=== PATIENT | female | born 1995 | race Caucasian/White ===

== ENCOUNTER 2023-05-05 05:08 | Emergency (ER) | payer OTHER, SELFPAY ==
[2023-05-05 05:21] VITALS: BP 152/108; PULSE 70; RESP 20; TEMP 37.1; O2SAT 95; BMI 41.2
[2023-05-05 05:26] VITALS: BP 152/108; PULSE 86; RESP 23
--- NOTE | 2023-05-05 05:48 | ECG_ITS ---
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
--- NOTE | 2023-05-05 05:48 | XR_ITS ---
The [address] [address] Patient Name: ABEL ELIZONDO MRN: [id number] date: 1995 Sex: F Assigned Patient Location: ED.MAIN Current Patient Location: ER Accession/Order Number: [id number] Exam Date: 05/05/2023 05:55 Report Date: 05/05/2023 06:17 At the request of: BRITTNEY MARKER Procedure: XR chest 1V EXAM: XR chest 1V 05/05/2023 5:55 AM EDT OH001 CLINICAL STATEMENT: CP chest pain COMPARISON: No prior studies are available at the time of dictation. TECHNIQUE: Single AP radiograph of the chest is submitted. FINDINGS: There is no acute airspace disease. The cardiac silhouette is normal. The costophrenic recesses are sharp. No pneumothorax. The bony elements are unremarkable. IMPRESSION: No acute cardiopulmonary process. Electronically authenticated by: CORIE SAID Date: 05/05/2023 06:17
--- NOTE | 2023-05-05 06:01 | ED_ITS ---
Documented by User: Gill Vines MD 05/05/23 06:05 HPI - General Adult General Chief complaint: Back Pain/Injury Stated complaint: FLANK PAIN Time Seen by Provider: 05/05/23 05:10 Source: patient Mode of arrival: walk-in Limitations: no limitations History of Present Illness HPI narrative: This otherwise healthy 27-year-old female, nonsmoker presents for evaluation of muscle spasms in the left side of her chest underneath her breasts and wrapping around to the back. This has been present for the past 1-2 days but getting worse. The patient has pain with movement, coughing and deep breathing. She states she has had an upper respiratory section with nasal congestion, dry hacking cough for the past several weeks. She states she cannot get any sputum up. She has been having episodes of spasmodic coughing. Last night she was unable get comfortable because every time she moved or twisted she had pain in the left chest area. She denies any dizziness or syncope. She denies feeling specifically short of breath. She denies the possibility of . She has not had a fever. She denies any nausea vomiting or diarrhea. She has used tzha-fuy-gqxbxhi cough and cold medications and ALLERGY medications without significant improvement. She admits that she has been a fair bit of time outside because her daughter is in softball and she helps her practice. Related Data Home Medications Medication Instructions Recorded Confirmed escitalopram oxalate 20 mg tablet 20 mg PO DAILY 05/05/23 05/05/23 (Lexapro) Allergies Allergy/AdvReac Type Severity Reaction Status Date / Time No Known Drug Allergies Allergy Verified 05/05/23 05:27 Review of Systems ROS Status of ROS 10 or more systems reviewed and unremarkable except as noted in history and below Exam Narrative Exam Narrative: Constitutional: Nontoxic overweight female resting comfortable in the stretcher, she winces in pain with movement, no respiratory distress Vital signs reviewed, patient is afebrile with normal pulse, blood pressure is elevated at 152/108, she is not hypoxic with pulse ox 95 percent on room air HEENT, normocephalic atraumatic, mucous members are moist and pink, no pharyngeal erythema noted, audible nasal congestion appreciated Neck: Supple, no meningeal signs Chest: Tenderness to palpation underneath the left breast and left upper lateral chest wall, no crepitus appreciated. Lungs are clear with good air entry, there is no wheezing rhonchi or rales appreciated no accessory muscle use, patient speaking in complete sentences CVS: Rate and rhythm S1-S2, no murmurs rubs or gallops, pulses are brisk and equal bilaterally Abdomen: Soft, nondistended, no rebound guarding or rigidity, Extremities: FROM ,non-tender Neuro: No focal deficits Psych: normal exam Constitutional Vital Signs - 24 hr 05/05/23 05:21 Temperature 98.8 F Pulse Rate [Monitor] 70 Respiratory Rate 20 Blood Pressure [Left Arm] 152/108 H Pulse Oximetry 95 Oxygen Delivery Method Room Air Course Vital Signs Vital signs: Vital Signs Temperature 98.8 F 05/05/23 05:21 Pulse Rate 70 05/05/23 05:21 Respiratory Rate 20 05/05/23 05:21 Blood Pressure 152/108 H 05/05/23 05:21 Pulse Oximetry 95 05/05/23 05:21 Oxygen Delivery Method Room Air 05/05/23 05:21 Temperature 98.8 F 05/05/23 05:21 Pulse Rate 70 05/05/23 05:21 Respiratory Rate 20 05/05/23 05:21 Blood Pressure 152/108 H 05/05/23 05:21 Pulse Oximetry 95 05/05/23 05:21 Oxygen Delivery Method Room Air 05/05/23 05:21 Medical Decision Making Lab Data Labs: Lab Results 05/05/23 Range/Units 05:40 WBC 8.6 (4.0-11.0) 10^3/uL RBC 5.45 H (4.20-5.40) 10^6/uL Hgb 14.1 (12.0-16.0) g/dL Hct 42.0 (36.0-48.0) % MCV 77.1 L (81.0-99.0) fL MCH 25.9 L (26.7-34.0) pg MCHC 33.6 (29.9-35.2) g/dL RDW 14.0 (11.0-15.0) % Plt Count 419 (150-450) 10^3/uL MPV 9.2 L (9.5-13.5) fL Neut % (Auto) 61.4 (43.0-75.0) % Lymph % (Auto) 30.2 (20.5-60.0) % [place] % (Auto) 5.4 (1.7-12.0) % Eos % (Auto) 2.3 (0.9-7.0) % Baso % (Auto) 0.6 (0.2-2.0) % Neut # (Auto) 5.3 (1.4-6.5) 10^3/uL Lymph # (Auto) 2.6 (1.2-3.8) 10^3/uL [place] # (Auto) 0.5 (0.3-0.8) 10^3/uL Eos # (Auto) 0.2 (0.0-0.7) 10^3/uL Baso # (Auto) 0.1 (0.0-0.1) 10^3/uL Abs Immat Gran (auto) 0.01 (0.00-0.03) 10^3/uL Imm/Tot Granulo (auto) 0.1 (0.0-0.5) % D-Dimer 0.22 (<=0.59) mg/L FEU Sodium 140 (136-145) mmol/L Potassium 3.6 (3.5-5.1) mmol/L Chloride 103 (98-107) mmol/L Carbon Dioxide 27.9 (21.0-32.0) mmol/L Anion Gap 12.7 BUN 8.0 (7.0-18.0) mg/dL Creatinine 0.68 (0.55-1.02) mg/dL Est GFR ( Amer) >60 (>=60) Est GFR (Non-Af Amer) >60 (>=60) BUN/Creatinine Ratio 11.8 Glucose 95 (74-106) mg/dL Lactate 1.4 (0.4-2.0) mmol/L Calcium 8.6 (8.5-10.1) mg/dL Total Bilirubin 0.3 (0.2-1.0) mg/dL AST 14 L (15-37) U/L ALT 25 (14-59) U/L Alkaline Phosphatase 75 (46-116) U/L Troponin I High Sens <4.0 L (4.0-51.3) pg/mL Total Protein 8.2 (6.4-8.2) g/dL Albumin 3.7 (3.4-5.0) g/dL Globulin 4.5 g/dL Albumin/Globulin Ratio 0.8 Discharge Plan Discharge Chief Complaint: Back Pain/Injury Clinical Impression: Pleurisy Patient Disposition: Home, Self-Care Time of Disposition Decision: 07:16 Prescriptions / Home Meds: No Action escitalopram oxalate [Lexapro] 20 mg tablet 20 mg PO DAILY Instructions: Pleurisy (ED) Stand Alone Forms: Portal Instructions Referrals: Physician,Non-Staff, MD [Primary Care Provider] - 1 week Sign Out Sign Out Data: Patient Sign Out occurred on 05/05/23 at 07:09. Patient's care was discussed, and care was transferred from Gill Vines MD to Paramjit Caban. Sign Out Comment: pending rib series xray and re-eval Last updated by Gill Vines MD at 05/05/23 07:06 Documented by User: Paramjit Caban 05/05/23 07:17 HPI - General Adult General Chief complaint: Back Pain/Injury Stated complaint: FLANK PAIN Time Seen by Provider: 05/05/23 05:10 Related Data Home Medications Medication Instructions Recorded Confirmed escitalopram oxalate 20 mg tablet 20 mg PO DAILY 05/05/23 05/05/23 (Lexapro) Allergies Allergy/AdvReac Type Severity Reaction Status Date / Time No Known Drug Allergies Allergy Verified 05/05/23 05:27 Exam Constitutional Vital Signs - 24 hr 05/05/23 05:21 Temperature 98.8 F Pulse Rate [Monitor] 70 Respiratory Rate 20 Blood Pressure [Left Arm] 152/108 H Pulse Oximetry 95 Oxygen Delivery Method Room Air Course Vital Signs Vital signs: Vital Signs Temperature 98.8 F 05/05/23 05:21 Pulse Rate 70 05/05/23 05:21 Respiratory Rate 20 05/05/23 05:21 Blood Pressure 152/108 H 05/05/23 05:21 Pulse Oximetry 95 05/05/23 05:21 Oxygen Delivery Method Room Air 05/05/23 05:21 Temperature 98.8 F 05/05/23 05:21 Pulse Rate 70 05/05/23 05:21 Respiratory Rate 20 05/05/23 05:21 Blood Pressure 152/108 H 05/05/23 05:21 Pulse Oximetry 95 05/05/23 05:21 Oxygen Delivery Method Room Air 05/05/23 05:21 Medical Decision Making MDM Narrative Medical decision making narrative: Patient was initially evaluated by Dr Vines - her HPI and exam findings are noted above. Labs were negative including d-dimer. She signed the patient out to me with CXR pending. CXR reviewed and was without acute cardiopulmonary pathology. Patient informed of results and discharged home. Dr Vines had already written a prescription for pain meds. Patient instructed to see her PCP for follow up or return to the ED if she worsens. Lab Data Lab results reviewed: Yes I reviewed the patient's lab results Labs: Lab Results 05/05/23 Range/Units 05:40 WBC 8.6 (4.0-11.0) 10^3/uL RBC 5.45 H (4.20-5.40) 10^6/uL Hgb 14.1 (12.0-16.0) g/dL Hct 42.0 (36.0-48.0) % MCV 77.1 L (81.0-99.0) fL MCH 25.9 L (26.7-34.0) pg MCHC 33.6 (29.9-35.2) g/dL RDW 14.0 (11.0-15.0) % Plt Count 419 (150-450) 10^3/uL MPV 9.2 L (9.5-13.5) fL Neut % (Auto) 61.4 (43.0-75.0) % Lymph % (Auto) 30.2 (20.5-60.0) % [place] % (Auto) 5.4 (1.7-12.0) % Eos % (Auto) 2.3 (0.9-7.0) % Baso % (Auto) 0.6 (0.2-2.0) % Neut # (Auto) 5.3 (1.4-6.5) 10^3/uL Lymph # (Auto) 2.6 (1.2-3.8) 10^3/uL [place] # (Auto) 0.5 (0.3-0.8) 10^3/uL Eos # (Auto) 0.2 (0.0-0.7) 10^3/uL Baso # (Auto) 0.1 (0.0-0.1) 10^3/uL Abs Immat Gran (auto) 0.01 (0.00-0.03) 10^3/uL Imm/Tot Granulo (auto) 0.1 (0.0-0.5) % D-Dimer 0.22 (<=0.59) mg/L FEU Sodium 140 (136-145) mmol/L Potassium 3.6 (3.5-5.1) mmol/L Chloride 103 (98-107) mmol/L Carbon Dioxide 27.9 (21.0-32.0) mmol/L Anion Gap 12.7 BUN 8.0 (7.0-18.0) mg/dL Creatinine 0.68 (0.55-1.02) mg/dL Est GFR ( Amer) >60 (>=60) Est GFR (Non-Af Amer) >60 (>=60) BUN/Creatinine Ratio 11.8 Glucose 95 (74-106) mg/dL Lactate 1.4 (0.4-2.0) mmol/L Calcium 8.6 (8.5-10.1) mg/dL Total Bilirubin 0.3 (0.2-1.0) mg/dL AST 14 L (15-37) U/L ALT 25 (14-59) U/L Alkaline Phosphatase 75 (46-116) U/L Troponin I High Sens <4.0 L (4.0-51.3) pg/mL Total Protein 8.2 (6.4-8.2) g/dL Albumin 3.7 (3.4-5.0) g/dL Globulin 4.5 g/dL Albumin/Globulin Ratio 0.8 Imaging Data Chest x-ray: Attestation: I have reviewed the pertinent imaging results. Radiologist's impression: Patient Name: ABEL ELIZONDO MRN: [id number] date: 1995 Sex: F Assigned Patient Location: ED.MAIN Current Patient Location: ER Accession/Order Number: [id number] Exam Date: 05/05/2023 05:55 Report Date: 05/05/2023 06:17 At the request of: GILL MARKER Procedure: XR chest 1V EXAM: XR chest 1V 05/05/2023 5:55 AM EDT OH001 CLINICAL STATEMENT: CP chest pain COMPARISON: No prior studies are available at the time of dictation. TECHNIQUE: Single AP radiograph of the chest is submitted. FINDINGS: There is no acute airspace disease. The cardiac silhouette is normal. The costophrenic recesses are sharp. No pneumothorax. The bony elements are unremarkable. IMPRESSION: No acute cardiopulmonary process. Electronically authenticated by: CORIE MONACO Date: 05/05/2023 06:17 Discharge Plan Discharge Chief Complaint: Back Pain/Injury Clinical Impression: Pleurisy Patient Disposition: Home, Self-Care Time of Disposition Decision: 07:16 Prescriptions / Home Meds: No Action escitalopram oxalate [Lexapro] 20 mg tablet 20 mg PO DAILY Instructions: Pleurisy (ED) Stand Alone Forms: Portal Instructions Referrals: Physician,Non-Staff, MD [Primary Care Provider] - 1 week Sign Out Sign Out Data: Patient Sign Out occurred on 05/05/23 at 07:09. Patient's care was discussed, and care was transferred from Gill Vines MD to Paramjit Caban. Sign Out Comment: pending rib series xray and re-eval Last updated by Gill Vines MD at 05/05/23 07:06
[2023-05-05 06:12] LABS: Basophils Absolute Auto 0.1 10^3/uL (0.0-0.1); Basophils Percent Auto 0.6 % (0.2-2.0); Eosinophils Absolute Auto 0.2 10^3/uL (0.0-0.7); Eosinophils Percent Auto 2.3 % (0.9-7.0); Hemoglobin 14.1 g/dL (12.0-16.0); Immature Granulocytes Abs Auto 0.01 10^3/uL (0.00-0.03); Immature Granulocytes Pct Auto 0.1 % (0.0-0.5); Lymphocytes Absolute Auto 2.6 10^3/uL (1.2-3.8); Lymphocytes Percent Auto 30.2 % (20.5-60.0); Mean Corpuscular HGB Conc 33.6 g/dL (29.9-35.2); Mean Corpuscular Hemoglobin 25.9 pg (26.7-34.0); Mean Corpuscular Volume 77.1 fL (81.0-99.0); Mean Platelet Volume 9.2 fL (9.5-13.5); Monocytes Absolute Auto 0.5 10^3/uL (0.3-0.8); Monocytes Percent Auto 5.4 % (1.7-12.0); Neutrophils Absolute Auto 5.3 10^3/uL (1.4-6.5); Neutrophils Percent Auto 61.4 % (43.0-75.0); Platelet Count 419 10^3/uL (150-450); Red Blood Count 5.45 10^6/uL (4.20-5.40); White Blood Count 8.6 10^3/uL (4.0-11.0)
[2023-05-05] MEDS: 0.9 % SODIUM CHLORIDE 1,000 ML 999 ML IV (06:22)
[2023-05-05] MEDS: KETOROLAC TROMETHAMINE 30 MG/ML VIAL IVP (06:23)
[2023-05-05] MEDS: ONDANSETRON 4 MG RAPDIS TABLET SL (06:39)
[2023-05-05] MEDS: HYDROCODONE/ACETAMINOPHEN 5-325 MG TABLET 1 TAB PO (06:39)
[2023-05-05 06:44] LABS: D Dimer 0.22 mg/L FEU (<=0.59)
[2023-05-05 06:46] LABS: Lactate/Lactic Acid 1.4 mmol/L (0.4-2.0)
[2023-05-05 06:52] LABS: Alanine Aminotransferase 25 U/L (14-59); Albumin Globulin Ratio 0.8; Albumin Level 3.7 g/dL (3.4-5.0); Alkaline Phosphatase 75 U/L (46-116); Anion Gap 12.7; Aspartate Amino Transferase 14 U/L (15-37); BUN Creatinine Ratio 11.8; Bilirubin Total 0.3 mg/dL (0.2-1.0); Calcium 8.6 mg/dL (8.5-10.1); Carbon Dioxide 27.9 mmol/L (21.0-32.0); Chloride 103 mmol/L (98-107); Estimated GFR (African America >60 (>=60); Estimated GFR (Non-African Ame >60 (>=60); Globulin 4.5 g/dL; Glucose 95 mg/dL (74-106); Potassium 3.6 mmol/L (3.5-5.1); Sodium 140 mmol/L (136-145); Total Protein 8.2 g/dL (6.4-8.2); Troponin I High Sensitivity <4.0 pg/mL (4.0-51.3)
[2023-05-05 07:32] VITALS: BP 138/73; PULSE 72; RESP 16; TEMP 36.6; O2SAT 96
== END 2023-05-05 07:54 | disposition home or self-care (01) ==
PROVIDERS: Emergency Medicine; Emergency Provider Emergency Medicine
DX: R09.1 Pleurisy (principal); Z79.899 Other long term (current) drug therapy
CPT/HCPCS: 36415; 71045; 80053; 83605; 84484; 85025; 85378; 93005; 96374; 99285

== ENCOUNTER 2024-12-05 23:26 | Emergency (ER) | payer OTHER, SELFPAY ==
[2024-12-05 23:32] VITALS: BP 138/98; PULSE 128; TEMP 38.3; O2SAT 96; BMI 41.2
--- NOTE | 2024-12-05 23:44 | ED_ITS ---
HPI - URI/Sore Throat General Chief Complaint: Upper Respiratory Infection Stated Complaint: FEVER Time Seen by Provider: 12/05/24 23:28 Source: patient Limitations: no limitations History of Present Illness HPI Narrative: 29-year-old female presents to the emergency department for 1-1/2 days of bodyaches and fever. She does not complain of sore throat but her neck hurts if she touches it. Multiple family members have been ill. No vomiting or diarrhea or productive cough. Related Data Home Medications ?Medication ?Instructions ?Recorded ?Confirmed escitalopram oxalate 20 mg tablet 20 mg PO DAILY 05/05/23 05/05/23 (Lexapro) Allergies Allergy/AdvReac Type Severity Reaction Status Date / Time No Known Drug Allergies Allergy Verified 12/05/24 23:39 Review of Systems ROS Narrative A ten point review of systems is negative except as noted above. PFSH PFSH Social History Little interest or pleasure in doing things: not at all Feeling down, depressed, or hopeless: not at all Exam Narrative Exam Narrative: Nurses note and vital signs reviewed and patient is not hypoxic. General: The patient appears in no apparent distress. Skin: Warm, dry, no pallor noted. There is no rash noted. Head: Normocephalic, atraumatic Eye: Normal conjunctiva, no drainage, EOMI. PERRL Ears, Nose, Mouth, and Throat: oral mucosa is moist. Nares patent. No pharyngeal exudate. Uvula midline. Cardiovascular: Regular Rate and Rhythm Respiratory: Patient is in no distress, no accessory muscle use, lungs are clear to auscultation, no wheezing, rales or rhonchi Back: non-tender GI: Soft and nontender Musculoskeletal: The patient has no evidence of calf tenderness, no pitting edema, symmetrical pulses noted bilaterally Neurological: A&O, normal speech Psychiatric: Cooperative Constitutional Vital Signs, click to edit/add: Last Vital Signs Temp 101.0 F H 12/05/24 23:32 Pulse 128 H 12/05/24 23:32 Resp 20 12/05/24 23:32 BP 138/98 H 12/05/24 23:32 Pulse Ox 97 12/05/24 23:50 O2 Del Method Room Air 12/05/24 23:50 Course Vital Signs Vital signs: Vital Signs Temperature 101.0 F H 12/05/24 23:32 Pulse Rate 128 H 12/05/24 23:32 Respiratory Rate 20 12/05/24 23:32 Blood Pressure 138/98 H 12/05/24 23:32 Pulse Oximetry 96 12/05/24 23:32 Oxygen Delivery Method Room Air 12/05/24 23:32 Temperature 101.0 F H 12/05/24 23:32 Pulse Rate 128 H 12/05/24 23:32 Respiratory Rate 20 12/05/24 23:32 Blood Pressure 138/98 H 12/05/24 23:32 Pulse Oximetry 97 12/05/24 23:50 Oxygen Delivery Method Room Air 12/05/24 23:50 MDM - URI/Sore Throat MDM Narrative Medical decision making narrative: COVID test is negative, influenza is positive. She was given a note to be off of work and was recommended Tylenol and Motrin. Treatment diagnosis and follow- up were discussed with the patient. Differential Diagnosis Differential diagnosis: Likely upper respiratory infection, viral infection, influenza and other (COVID) Lab Data Attestation: I reviewed the patient's lab results. Labs: Lab Results 12/05/24 Range/Units 23:42 Influenza Type A Ag Positive A Influenza Type B Ag Negative SARS-CoV-2 Ag (CV2AG) Negative (NEGATIVE) Discharge Plan Discharge Chief Complaint: Upper Respiratory Infection Clinical Impression: Influenza Patient Disposition: Home, Self-Care Time of Disposition Decision: 00:07 Condition: Good Mode of Transportation: Private Vehicle Prescriptions / Home Meds: No Action escitalopram oxalate [Lexapro] 20 mg tablet 20 mg PO DAILY Print Language: Telugu Instructions: Influenza (ED) Referrals: Xena Bryant NP [Primary Care Provider] - 1 week
[2024-12-05 23:50] VITALS: O2SAT 97
[2024-12-05] MEDS: ACETAMINOPHEN 325 MG TABLET 650 MG PO (23:52)
[2024-12-06] LABS: Influenza Virus A Antigen Positive; Influenza Virus B Antigen Negative; Internal Control Within Normal Limits; SARS-CoV-2 Ag NEGATIVE (NEGATIVE)
[2024-12-06 00:18] VITALS: PULSE 120; TEMP 37.1; O2SAT 100
== END 2024-12-06 00:20 | disposition home or self-care (01) ==
PROVIDERS: Emergency Provider Emergency Medicine; PCP Nurse Practitioner Family
DX: J10.1 Influenza due to other identified influenza virus with other respiratory manifestations (principal); R50.9 Fever, unspecified
CPT/HCPCS: 87804; 87811; 99284

== ENCOUNTER 2025-04-23 07:08 | Emergency (ER) | payer SELFPAY ==
--- OUTSIDE RECORDS SUMMARY | 2024-08-08 09:30 | XMS_ITS | Continuity of Care Document ---
Author Organization [facility] Address [address] [place] [address] Phone Care Team Providers Care Supervisor [employer] Name Role Phone Tarah Sandoval DDS Unavailable Unavailable Medications Medication Instructions Dosage Effective Dates (start - stop) Status Comments buspirone 7.5 mg tablet take 1 tablet by oral route 2 times every day 7.5 MG - Active Lexapro 5 mg tablet take 1 tablet by ora l route every day 5 MG - Active Procedures Procedure Date Intraoral-complete Series (bw) Oral Hygiene Instruction Comp Oral Eval New/estab Patient 2023 Advance Directives Directive Yes / No Effective Date File Name No Information Encounters Encounter Description Practice Location Reason(s) For Visit Diagnoses Date Provider Providers Copied on Encounter [facility], [address] [place] [address], [id number], tel:[phone] [facility] dENTAL NEW (chief complaint) Encounter for screening for dental disorders Jaime Rascon. . tel:[phone] Family History Family Member Type Diagnosis Age At Onset No Information Payers Payer name Insurance type Covered green party ID Authoriza dona(s) John Croft [facility] [employer] [id number] D Medicaid [facility] [id number] Social History Type Description Quantity Date Captured Comments Alcohol Use Details Unknown Caffeine Use Details Unknown Tobacco Use Status No Information Smoking Status No Information Sex Female Sexual Orientation Straight or heterosexual Jun Gender Identity Female Chief Complaint And Reason For Visit From encounter dated '08/08/2024 13:30'. dENTAL NEW (chief complaint). Description: DN Reason For Referral Reason For Referral No Information Plan Of Treatment Date Type Action Status Goal PAP. Due on due Goal Unhealthy drug use screening . Due on due Goal Hep A. Due on du e Goal PRAPARE ASSESSMENT. Due on O ct due Goal Tdap Vaccine. Due on 2023 due Goal Depression screening. Due on due Goal Tdap. Due on due Goal Influenza vaccine. Due on Oc due Goal Hepatitis C screening. Due o n due Goal RLP. Due on due History Of Present Illness Encounter Date Complaint History Of Prese nt Illness dENTAL NEW DN Functional Status Date Functional Assessmen t No Information Instructions Date Instruction Additional Infor mation No Information Assessments Type Assessment Date No Information Patient Care Teams Name Effective Dates (start - stop) Status Members No Information
[2025-04-23 07:14] VITALS: BP 156/88; PULSE 95; TEMP 36.8; O2SAT 97; BMI 41.2
--- OUTSIDE RECORDS SUMMARY | 2025-04-23 07:17 | XMS_ITS | Clinical Summary ---
Author Organization [facility] Address [address] [place] [address] Phone Care Team Providers Care Piece Work Checker Name Role Phone Alena Arteaga Primary Care Provider Social History Tobacco Use Types Packs/Day Years Used Date Smoking Tobacco: Never Assessed Comments Unknown Sex and Gender Information Value Date Recorded Sex Assigned at Not on file Legal Sex Female 2:36 AM EST Gender Identity Not on file Sexual Orientation Not on file Last Filed Vital Signs Vital Sign Reading Time Taken Comments Blood Pressure 108/74 09/21/2021 11:13 AM EST Pulse 90 09/21/2021 11:04 AM EST Temperature - - Respiratory Rate - - Oxygen Saturation - - Inhaled Oxygen Concentration - - Weight 120 kg (264 lb 12.8 oz) 09/21/2021 11:04 AM EST Height 162.6 cm (5' 4 ) 09/21/2021 11:04 AM EST Body Mass Index 45.45 09/21/2021 11:04 AM EST Plan of Treatment Not on file Care Teams Piece Work Checker Relationship Specialty Start Date End Date Alena Arteaga APRN-CNP [facility] [place] [id number] PCP - General 09/21/21
--- OUTSIDE RECORDS SUMMARY | 2025-04-23 07:17 | XMS_ITS | Encounter Summary ---
Author Organization [facility] Address [facility] [place]-[id number] [address] [place] [address] Care Team Providers Care Stand In Name Role Phone Xena Bryant MIXING PICKER TENDER-H[employer]AN [employer]OURCES HR REPRESENTATIVE Primary Care Provide r Reason for Visit * Reason Comments Med Refill Encounter Details Date Type Department Care Team (Late st Contact Info) Description 07/25/2023 Refill [facility] [address] [place] [address] Xena Bryant APRN-CNP [address], [place] [id number] Hyperinsulinism; PCOS (polycystic ovarian syndrome) Social History Tobacco Use Types Packs/Day Years Used Date Smoking Tobacco: Never Smokeless Tobacco: Never Alcohol Use Standard Drinks/Week Comments No 0 (1 standard drink = 0.6 oz pur e alcohol) Social Connection and Isolat ion Panel [NHANES] Answer Date Recorded In a typical week, how many times do you talk on the phone with family, friends, or neighbors? More than three times a week 11/25/2022 How often do you get togethe r with friends or relatives? Three times a week 11/25/2022 How often do you attend chur or cheondoism services? Never 11/25/2022 Do you belong to any clubs o r organizations such as restorationist groups, unions, fraternal or athletic groups, or school groups? No 11/25/2022 How often do you attend meet ings of the clubs or organizations you belong to? Never 11/25/2022 Are you , , di vorced, , never , or living with a partner? 11/25/2022 AUDIT-C Answer Date Recorded Q1: How often do you have a drink containing alc ohol? Monthly or less 11/25/2022 Q2: How many drinks containi ng alcohol do you have on a typical day when you are drinking? 1 or 2 11/25/2022 Q3: How often do you have si x or more drinks on one occasion? Less than monthly 11/25/2022 Overall Financial Resource Strain (CARDIA) Answe r Date Recorded How hard is it for you to pa y for the very basics like food, housing, medical care, and heating? Somewhat hard 11/25/2022 PHQ-2 Answer Date Recorded Total Score 0 02/01/2023 [facility] - Occupational Stress Questionnaire Answer Date Recorded Do you feel stress - tense, restless, nervous, or anxious, or unable to sleep at night because your mind is troubled all the time - these days? Very much 11/25/2022 Exercise Vital Sign Answer Date Recorde d On average, how many days pe r week do you engage in moderate to strenuous exercise (like a brisk walk)? 3 days 11/25/2022 On average, how many minutes do you engage in exercise at this level? 150+ min 11/25/2022 PRAPARE - Transportation Answer Date Re corded In the past 12 months, has l ack of transportation kept you from medical appointments or from getting medications? No 11/07 In the past 12 months, has l ack of transportation kept you from meetings, work, or from getting things needed for daily living? No 11/25/2022 Housing Instability Answer Date Recorde d Are you worried or concerned that in the next two months you may not have stable housing that you own, rent or stay in as a part of a household? No 11/25/2022 Childcare Answer Date Recorded Do problems getting child ca re make it difficult for you to work or study? Yes 11/25/2022 Employment Answer Date Recorded Do you need help finding a van ness campusal career center and/or a training program? No 11/25/2022 Hunger Screening Answer Date Recorded Within the past 12 months we worried whether our food would run out before we got money to buy more. Never True 02/01/2023 Within the past 12 months th e food we bought just didn't last and we didn't have money to get more. Never True 02/01/2023 Purpose - Life Answer Date Recorded I have a purpose and direction in my life. Neith er Agree nor Disagree 11/25/2022 Education Answer Date Recorded What is the highest level of school you have completed or the highest degree you have received? Some college, no degree 11/25/2022 Comments No Sex and Gender Information Value Date Recorded Sex Assigned at Not on file Legal Sex Female 11:49 AM EDT Gender Identity Not on file Sexual Orientation Not on file documented as of this encounter Plan of Treatment Not on file documented as of this encounter Visit Diagnoses Diagnosis Hyperinsulinism Other specified hypoglycemia PCOS (polycystic ovarian syndrome) Polycystic ovaries documented in this encounter Additional Health Concerns Assessment Noted Time PHQ-9 Depression Total Score: 0 02/02/20 23 9:23 AM EDT A Body Mass Index follow-up plan has been documented for the patient 07/13/2023 11:07 AM EDT documented as of this encounter Care Teams Stand In Relationship Specialty Start Date End Date Xena Bryant APRN-ARACELIS [address] [place] [address] PCP - General Family Medicine 02/07/25 documented as of this encounter
--- OUTSIDE RECORDS SUMMARY | 2025-04-23 07:17 | XMS_ITS | Encounter Summary ---
Author Organization [employer] Address [id number] [address] [place] [address] Care Team Providers Care Registered Nurse Maternity Name Role Phone Xena Bryant FILTRATION OPERATOR-CO FOUNDER AND CTO Primary Care Provide r Reason for Visit * Reason Onset Date Comments referral 08/28/2021 Encounter Details Date Type Department Care Team (Late st Contact Info) Description 08/28/2021 Telephone [facility] [address] [place] [phone] Destiny Mendoza referral Social History Tobacco Use Types Packs/Day Years Used Date Smoking Tobacco: Never Smokeless Tobacco: Never Alcohol Use Standard Drinks/Week Comments No 0 (1 standard drink = 0.6 oz pur e alcohol) Childcare Answer Date Recorded Childcare Unknown 04/18/2019 Employment Answer Date Recorded Employment Unknown 04/18/2019 Purpose - Life Answer Date Recorded Purpose and direction in life Unknown Comments No Sex and Gender Information Value Date Recorded Sex Assigned at Not on file Legal Sex Female 11:49 AM EDT Gender Identity Not on file Sexual Orientation Not on file documented as of this encounter Miscellaneous Notes * Telephone Encounter - Destiny Mendoza - 08/28/2021 10:14 AM EDT 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 Peralta documented in this encounter Plan of Treatment Not on file documented as of this encounter Visit Diagnoses Not on filedocumented in this encounter Care Teams Registered Nurse Maternity Relationship Specialty Start Date End Date Xena Bryant APRN-ARACELIS [address] [place] [address] PCP - General Family Medicine 02/07/25 documented as of this encounter
--- OUTSIDE RECORDS SUMMARY | 2025-04-23 07:17 | XMS_ITS | Encounter Summary ---
Author Organization [facility] Address [id number] [address] [place] [address] Care Team Providers Care Machine Shop Supervisor Name Role Phone Xena Bryant ATHLETE MANAGER-FUR PULLER Primary Care Provide r Reason for Visit * Reason Comments Med Refill Encounter Details Date Type Department Care Team (Late st Contact Info) Description 12/01/2022 Refill [facility] [address] [place] [address] Xena Bryant APRN-CNP [address] [place], [place] [id number] Social History Tobacco Use Types Packs/Day Years [...] 11/25/2022 How often do you attend chur ch or christian services? Never 11/25/2022 Do you belong to any clubs o r organizations such as buddhist groups, unions, fraternal or athletic groups, or [...] 11/25/2022 PHQ-2 Answer Date Recorded Total Score 21 11/25/2022 [facility] of Occupat ional Health - Occupational Stress Questionnaire Answer Date Recorded [...] Recorded Do you need help finding a [facility] career [facility] and/or a training program? No 11/25/2022 Purpose - Life Answer Date Recorded I have a purpose and direction in my life. Kayajordon omar Agree nor Disagree 11/25/2022 Education Answer Date Recorded What is the highest level of school you have completed or the highest degree you have received? Some college, no degree 11/25/2022 Comments No Sex and Gender Information Value Date Recorded Sex Assigned at Not on file Legal Sex Female 11:49 AM EDT Gender Identity Not on file Sexual Orientation Not on file COVID-19 Exposure Response Date Recorded In the last month, have you been in contact with someone who was confirmed or suspected to have Coronavirus / COVID-19? Yes 11/30/2022 12:41 PM EST documented as of this encounter Miscellaneous Notes * Telephone Encounter - ABHILASH Horvath - 12/01/2022 6:04 PM EST I sent this in two days ago? * Telephone Encounter - Alessandra Rosa CMA - 12/01/2022 6:04 PM EST Patient already p/u medication documented in this encounter Plan of Treatment Not on file documented as of this encounter Visit Diagnoses Not on filedocumented in this encounter Additional Health Concerns Assessment Noted Time PHQ-9 Depression Total Score: 21 023 2:59 PM EST A Body Mass Index follow-up plan has been documented for the patient 11/30/2022 2:17 PM EST documented as of this encounter Care Teams Machine Shop Supervisor Relationship Specialty Start Date End Date Xena Bryant APRN-CNP [address] [place] [address] PCP - General Family Medicine 02/07/25 documented as of this encounter
--- OUTSIDE RECORDS SUMMARY | 2025-04-23 07:17 | XMS_ITS | Clinical Summary ---
Author Organization [facility] Address [id number] [address] [place] [address] Care Team Providers Care Bottom Saw Operator Name Role Phone TaneshaXena ford SENIOR NETWORK SECURITY ARCHITECT-LAYAWAY CLERK Primary Care Provide r Allergies No known active allergies Medications * This document contains information received from the source organization and may not represent a complete record from that organization. albuterol (PROVENTIL HFA;VENTOLIN HFA) 90 mcg/actuation inhaler 2 Active nystatin (MYCOSTATIN) powder Apply 1 Application topically in the morning and 1 Application at noon and 1 Application in the evening and 1 Application before bedtime. 15 g 4 Active Additional Information Patient not taking.Reported on 02/07/2025 busPIRone (BUSPAR) 10 mg tabletIndicatio ns:Generalized anxiety disorder with panic attacks,Moderat e episode of recurrent major depressive disorder (CMS-HCC) Take 1 tablet (10 mg total) by mouth in the morning and 1 tablet (10 mg total) before bedtime. 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 90 tablet 1 4 Active Additional Information Patient not taking.Reported on 02/07/2025 Active Problems Problem Noted Date Diagnosed Date History of pre-eclampsia in prior , currently 09/07/2019 Abnormal biochemical finding on screening of mother 08/30/2019 Overview (10/12/2019): Increased risk of T21 on 4 marker screen- provider also did CF DNA- results low risk for T21. 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/25/2014 10/12/2019 Encounters Date Type Department Care Team Description 02/07/2025 7:03 AM EDT - 02/07/2025 8:53 AM EDT Emergency [facility] Emergency [address] [place] [phone] Simón Schultz DO Dizziness (Primary Dx) Discharge Disposition: Home 02/07/2025 Travel from Last 3 Months Family History Medical History Relation Name Comments Autism Brother Mental illness Brother Cleft lip Daughter Cleft palate Daughter Cancer Father throat Diabetes Father Heart attack Father Heart disease Father from [place] Relation Name Status Comments Brother Daughter Father Social History Tobacco Use Types Packs/Day Years Used Date Smoking Tobacco: Never Smokeless Tobacco: Never Tobacco Cessation:Counseling Given: Not Answered Alcohol Use Standard Drinks/Week Comments No 0 [...] often do you attend chur ch or church services? Never 11/25/2022 Do you belong to any clubs o r organizations such as christianity groups, unions, fraternal or athletic groups, or [...] 11/25/2022 PHQ-2 Answer Date Recorded Total Score 19 03/07/2024 [facility] of Occupat ional Health - Occupational Stress [...] Recorded Do you need help finding a [facility] career center and/or a training program? No 11/25/2022 Hunger Screening Answer Date Recorded Within the past 12 months we worried whether our food would run out before we got money to buy more. Never True 02/07/2025 Within the past 12 months th e food we bought just didn't last and we didn't have money to get more. Never True 02/07/2025 Purpose - Life Answer Date Recorded I have a purpose and direction in my life. Kayaith er Agree nor Disagree 11/25/2022 Education Answer [...] Sign Reading Time Taken Comments Blood Pressure 111/78 02/07/2025 8:28 AM EDT Pulse 71 02/07/2025 8:28 AM EDT Temperature 36.6 C (97.9 F) 02/07/2025 7:12 AM EDT Respiratory Rate 16 02/07/2025 8:28 AM EDT Oxygen Saturation 98% 02/07/2025 8:28 AM EDT Inhaled Oxygen Concentration - - Weight 111.1 kg (245 lb) 02/07/2025 7:08 AM EDT Height 162.6 cm (5' 4.02 ) 02/01/2023 9:21 AM ED T Body Mass Index 42.03 02/01/2023 9:21 AM EDT Plan of Treatment Health Maintenance Due Date Last Done Comments Pap Smear 2015 COVID-19 Vaccine (2023-2 5 season) 2024 02/05/2021, 12/31/2020 Depression Screening 03/07/2025 03/07/2024 Influenza Vaccine 07/08/2025 07/30/2024, , 09/05/2022, Additional history exists Adult BMI Screening 02/07/2026 02/07/2025 Tobacco Screening 02/07/2026 02/07/2025 DTaP,Tdap and Td Vaccines (8 - Td or Tdap) 02/24/2031 02/24/2021, 10/13/2009, 08/07/1999, Additional history exists Medical Devices Not on file Procedures Procedure Name Priority Date/Time Associated Diagnosis Comments CT BRAIN WO CONT STAT 02/07/2025 7:43 AM EDT TROPONIN I, HIGH SENSITIVITY STAT 02/07/2025 7:09 AM EDT BASIC METABOLIC PANEL STAT 02/07/2025 7:09 AM EDT CBC WITH AUTO DIFFERENTIAL STAT 02/07/2025 7:09 AM EDT ECG 12-LEAD STAT 02/07/2025 7:07 AM EDT from Last 3 Months Results * CT brain without contrast (02/07/2025 7:43 AM EDT) Anatomical Region Laterality Modality Neuro, Head, Head and Neck, Neuro Covera N/A Computed Tomography 02/07/2025 7:46 AM EDT Narrative 02/07/2025 7:48 AM EDT EXAM:CT BRAIN WO CONT INDICATION: dizziness COMPARISON: None TECHNIQUE: Standard noncontrast axial CT sections through the head. All CT scans at this facility use dose modulation, iterative reconstruction, and/or weight based dosing when appropriate to reduce radiation dose to as low as reasonably achievable. FINDINGS: Brain Parenchyma: No acute hemorrhage, cerebral edema, or acute cortical infarction. No mass effect, or midline shift. Ventricles and Sulci: Normal for age. Extra-Axial Spaces: No extra-axial fluid collection. Orbits, paranasal sinuses, midface structures, mastoid air cells: Normal Cranium and extracranial soft tissues: Normal IMPRESSION: No acute or subacute intracranial abnormalities. Finalized by Carlos Jackson on 02/07/2025 7:48 AM Procedure Note Carlos Jackson MD - 02/07/2025 EXAM:CT BRAIN WO CONT INDICATION: dizziness COMPARISON: None TECHNIQUE: Standard noncontrast axial CT sections through the head. All CT scans at this facility use dose modulation, iterativereconstruction, and/or weight based dosing when appropriate to reduceradiation dose to as low as reasonably achievable. FINDINGS: Brain Parenchyma: No acute hemorrhage, cerebral edema, or acute corticalinfarction. No mass effect, or midline shift. Ventricles and Sulci: Normal for age. Extra-Axial Spaces: No extra-axial fluid collection. Orbits, paranasal sinuses, midface structures, mastoid air cells: Normal Cranium and extracranial soft tissues: Normal IMPRESSION: No acute or subacute intracranial abnormalities. Finalized by Carlos Jackson on 02/07/2025 7:48 AM us Simón Schultz DO IMG CT ORDERABLES Final Resul t * Troponin I, High Sensitivity (02/07/2025 7:09 AM EDT) Pathologist [facility] [place] Troponin I, High Sensitivity <2 <16 ng/L 02/07/2025 7:45 AM [facility] Blood Serum / Unknown 02/07/2025 7 :09 AM EDT 02/07/2025 7:22 AM EDT us Simón Schultz DO LAB BLOOD ORDERABLES Final Re sult [address] [place] [address] * (ABNORMAL) CBC auto differential (02/07/2025 7:09 AM EDT) White Blood Cells 8.2 4.0 - 11.0 X10E9/L 02/07/2025 7:33 AM [facility] RBC count 5.25(H) 3.80 - 5.20 X10E12/L 02/07/2025 7:33 AM [facility] Hemoglobin 14.3 11.7 - 15.5 g/dL 02/07/2025 7:33 AM [facility] Hematocrit 40.4 35 - 47 % 02/07/2025 7:33 AM [facility] MCV 77(L) 80 - 100 fL 02/07/2025 7:33 AM [facility] MCH 27.2 27 - 34 pg 02/07/2025 7:33 AM [facility] MCHC 35.4 32 - 36 g/dL 02/07/2025 7:33 AM [facility] RDW 14.3 11.5 - 15.0 % 02/07/2025 7:33 AM [facility] Platelets 431 150 - 450 X10E9/L 02/07/2025 7:33 AM [facility] MPV 7.1 7 - 12 fL 02/07/2025 7:33 AM [facility] % neutrophils 62.5 % 02/07/2025 7:33 AM [facility] % lymphocytes 27.9 % 02/07/2025 7:33 AM [facility] % monocytes 6.6 % 02/07/2025 7:33 AM [facility] % eosinophils 1.9 % 02/07/2025 7:33 AM [facility] % Basophils 1.1 % 02/07/2025 7:33 AM [facility] Neutrophils Absolute (A) 5.1 1.5 - 6.6 X10E9/L 02/07/2025 7:33 AM [facility] Lymphocytes Absolute 2.3 1.0 - 3.5 X10E9/L 02/07/2025 7:33 AM [facility] Monocytes Absolute 0.5 0 - 0.9 X10E9/L 02/07/2025 7:33 AM [facility] Eosinophils Absolute 0.2 0.0 - 0.4 X10E9/L 02/07/2025 7:33 AM [facility] Basophils Absolute 0.1 0.0 - 0.2 X10E9/L 02/07/2025 7:33 AM [facility] Blood Blood / Unknown 02/07/2025 7 :09 AM EDT 02/07/2025 7:22 AM EDT us Simón Schultz DO LAB BLOOD ORDERABLES Final Re sult [facility] [address] [facility] [place] [address] * (ABNORMAL) Basic Metabolic Panel (02/07/2025 7:09 AM EDT) Sodium 137 134 - 146 mmol/L 02/07/2025 7:32 AM EDT [facility] Potassium, Bld 3.7 3.5 - 5.0 mmol/L 02/07/2025 7:32 AM EDT [facility] Chloride 107 98 - 109 mmol/L 02/07/2025 7:32 AM EDT [facility] CO2 25 22 - 32 mmol/L 02/07/2025 7:32 AM [facility] Anion gap 5 5 - 15 mmol/L 02/07/2025 7:32 AM [facility] BUN 10 5 - 23 mg/dL 02/07/2025 7:33 AM [facility] Creatinine 0.61 0.40 - 1.00 mg/dL 02/07/2025 7:33 AM [facility] Comment:METHOD TRACEABLE TO IDMS STANDARD Glucose 107(H) 65 - 99 mg/dL 02/07/2025 7:32 AM [facility] Calcium 8.4(L) 8.5 - 10.5 mg/dL 02/07/2025 7:32 AM [facility] eGFR (CKD-EPI)non-ra ce dependent >90 >59 ml/min/1.7 3sq.m 02/07/2025 7:33 AM [facility] Comment: Reported eGFR is based on the CKD-EPI 2020 equation that does not use a race coefficient. Blood (PLASMA) 02/07/2025 7: 09 AM EDT 02/07/2025 7:22 AM EDT us Simnó Schultz DO LAB BLOOD ORDERABLES Final Re sult [facility] [address] [place] [address] * ECG 12 lead (02/07/2025 7:07 AM EDT) 02/07/2025 7:07 AM EDT us Simón Schultz DO ECG ORDERABLES Final Result TRACEMASTERVUE from Last 3 Months Care Teams Bottom Saw Operator Relationship Specialty Start Date End Date Xena Bryant, ZHENG-LAYAWAY CLERK [address] [place] [address] PCP - General Family Medicine 02/07/25
--- OUTSIDE RECORDS SUMMARY | 2025-04-23 07:17 | XMS_ITS | Encounter Summary ---
Author Organization [facility] tem Address [id number] [address] [place] [address] Care Team Providers Care Acid Adjuster Name Role Phone Xena Bryant APRN-ARACELIS Primary Care Provide r Encounter Details Date Type Department Care Team (Late st Contact Info) Description 09/05/2019 Telephone Maternal- Medicine at [facility] [address] [facility] [place] [phone] Alexia Conde LPN Social History Tobacco Use Types Packs/Day Years Used Date Smoking Tobacco: Never Alcohol Use Standard Drinks/Week Comments No 0 (1 standard drink = 0.6 oz pur e alcohol) Childcare Answer Date Recorded Childcare Unknown 04/18/2019 Employment Answer Date Recorded Employment Unknown 04/18/2019 Comments Yes Sex and Gender Information Value Date Recorded Sex Assigned at Not on file Legal Sex Female 11:49 AM EDT Gender Identity Not on file Sexual Orientation Not on file documented as of this encounter Plan of Treatment Not on file documented as of this encounter Visit Diagnoses Not on filedocumented in this encounter Care Teams Acid Adjuster Relationship Specialty Start Date End Date Xena Bryant APRN-CNP [address] [place] [address] PCP - General Family Medicine 02/07/25 documented as of this encounter
--- OUTSIDE RECORDS SUMMARY | 2025-04-23 07:17 | XMS_ITS | Clinical Summary ---
Author Organization [facility] Address [address] [place] [address] Care Team Providers Care Rock Dust Sprayer Name Role Phone Steven Min MD Primary Care Provider + Allergies No known active allergies Medications Cholecalciferol (VITAMIN D) 50 MCG (1999) CAPS capsule Take by mouth Act servando acetaZOLAMIDE (DIAMOX) 250 MG tablet Take 1 tablet by mouth 2 times daily 60 tablet 5 9 Active etonogestrel (NEXPLANON) 68 MG implant 68 mg by Subdermal route once Active sertraline (ZOLOFT) 50 MG tablet Take 50 mg by mouth daily Active Active Problems Problem Noted Date Diagnosed Date Other problem associated wit h amniotic cavity and membranes, antepartum 08/05/2014 Cleft lip and palate, , affecting care of mother, 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/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, 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, 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/25/2014 cardiac echogenic focus, antepartum 2013 Family History Medical History Relation Name Comments Cancer Father Heart Attack Father Bipolar Disorder Mother Relation Name Status Comments Brother Alive Father Mother Alive Sister Alive Social History Tobacco Use Types Packs/Day Years Used Date Smoking Tobacco: Never Smokeless Tobacco: Never Tobacco Cessation:Counseling Given: Yes Alcohol Use Standard Drinks/Week Comments No 0 (1 standard drink = 0.6 oz pur e alcohol) Comments No Sex and Gender Information Value Date Recorded Sex Assigned at Not on file Legal Sex Female 9:41 AM EDT Gender Identity Not on file Sexual Orientation Not on file Last Filed Vital Signs Vital Sign Reading Time Taken Comments Blood Pressure 134/82 04/24/2020 12:01 PM EDT Pulse 88 04/24/2020 12:01 PM EDT Temperature 36.7 C (98 F) 04/24/2020 12:01 PM EDT Respiratory Rate 18 04/24/2020 12:0 1 PM EDT Oxygen Saturation - - Inhaled Oxygen Concentration - - Weight 103.3 kg (227 lb 11.2 oz) 2019 12:01 PM EDT Height 162.6 cm (5' 4 ) 04/24/2020 12:0 1 PM EDT Body Mass Index 39.08 04/24/2020 12:01 PM EDT Plan of Treatment Not on file Insurance [employer] [facility] [employer] Care Teams Rock Dust Sprayer Relationship Specialty Start Date End Date Steven Min MD [address] [place] [phone] PCP - General Family Medicine 07/12/19
--- OUTSIDE RECORDS SUMMARY | 2025-04-23 07:17 | XMS_ITS | Encounter Summary ---
Author Organization [facility] Address [id number] [address] [place] [address] Care Team Providers Care Negative Assembler Name Role Phone Xena Bryant CAKE PRESS OPERATOR-ASSEMBLY LOADER Primary Care Provide r Reason for Visit * Reason Comments Med Refill Encounter Details Date Type Department Care Team (Late st Contact Info) Description 02/16/2023 Refill [facility] [address] [place] [address] Xena Bryant APRN-CNP [address] [place], [place] [phone] Social History Tobacco Use Types Packs/Day Years [...] often do you attend chur ch or mosque services? Never 11/25/2022 Do you belong to any clubs o r organizations such as mosque groups, unions, fraternal or athletic groups, or [...] Answer Date Recorded Total Score 0 02/01/2023 [facility] of Occupat ional Health - Occupational Stress [...] Recorded Do you need help finding a [facility] career center and/or a training [...] or suspected to have Coronavirus / COVID-19? No / Unsure 02/09/2023 1:08 PM EDT documented as of this encounter Plan of Treatment Not on file documented as of this encounter Visit Diagnoses Not on filedocumented in this encounter Additional Health Concerns Assessment Noted Time PHQ-9 Depression Total Score: 0 02/02/20 23 9:23 AM EDT A Body Mass Index follow-up plan has been documented for the patient 02/09/2023 2:26 PM EDT documented as of this encounter Care Teams Negative Assembler Relationship Specialty Start Date End Date Xena Bryant APRN-ARACELIS [address] [place] [address] PCP - General Family Medicine 02/07/25 documented as of this encounter
--- OUTSIDE RECORDS SUMMARY | 2025-04-23 07:17 | XMS_ITS | Encounter Summary ---
Author Organization [facility] Address [id number] [address] [place] [address] Care Team Providers Care Shop Hand Name Role Phone Xena Bryant LAWN SPRINKLER INSTALLER-CHAIR INSPECTOR AND LEVELER Primary Care Provide r Reason for Visit * Reason Comments Med Refill Encounter Details Date Type Department Care Team (Late st Contact Info) Description 01/28/2023 Refill [facility] [address] [place] [address] Xena Bryant APRN-CNP [address] [place], [place] [phone] Hyperinsulinism Social History Tobacco Use Types Packs/Day Years [...] often do you attend chur ch or taoist services? Never 11/25/2022 Do you belong to any clubs o r organizations such as orthodox groups, unions, fraternal or athletic groups, or [...] Answer Date Recorded Total Score 0 02/01/2023 [facility] of Occupat ional Health - Occupational Stress [...] Recorded Do you need help finding a [facility] career center and/or a training [...] have Coronavirus / COVID-19? No / Unsure 01/14/2023 8:30 AM EST documented as of this encounter Plan of Treatment Not on file documented as of this encounter Visit Diagnoses Diagnosis Hyperinsulinism Other specified hypoglycemia documented in this encounter Additional Health Concerns Assessment Noted Time PHQ-9 Depression Total Score: 21 023 2:59 PM EST A Body Mass Index follow-up plan has been documented for the patient 01/14/2023 9:01 AM EST documented as of this encounter Care Teams Shop Hand Relationship Specialty Start Date End Date Xena Bryant APRN-ARACELIS [address] [place] [address] PCP - General Family Medicine 02/07/25 documented as of this encounter
--- OUTSIDE RECORDS SUMMARY | 2025-04-23 07:17 | XMS_ITS | Encounter Summary ---
Author Organization Truly Sys tem Address [id number] [address] [place] [address] Care Team Providers Care Director Of Student Financial Services Name Role Phone TaneshakyaramaheshXena PAGE MAKEUP SYSTEM OPERATOR-KILN CLEANER Primary Care Provide r Encounter Details Date Type Department Care Team (Late st Contact Info) Description 12/03/2022 Orders Only [facility] [address] [place] [id number] Charlene Ahumada CMA Weight gain; Other fatigue; Vitamin D deficiency; PCOS (polycystic ovarian syndrome) Social History Tobacco [...] often do you attend chur ch or caodaism services? Never 11/25/2022 Do you belong to any clubs o r organizations such as orthodoxy groups, unions, fraternal or athletic groups, or [...] Answer Date Recorded Total Score 21 11/25/2022 [facility] - Occupational Stress [...] Recorded Do you need help finding a l ocal career center and/or a training program? No 11/25/2022 Purpose - Life Answer Date Recorded I have a purpose and direction in my life. Rafaela nelson Agree nor Disagree 11/25/2022 Education Answer Date [...] PM EST documented as of this encounter Plan of Treatment Not on file documented as of this encounter Procedures Procedure Name Priority Date/Time Associated Diagnosis Comments THYROID PROFILE INCLUDES TSH FT4 Routine 12/02/2022 Weight gain Other fatigue CBC WITH AUTO DIFFERENTIAL Routine 12/02/2022 Weight gain Other fatigue THYROID PEROXIDASE ANTIBODY Routine 12/02/2022 Weight gain Other fatigue VITAMIN D 25 HYDROXY Routine 12/02/2022 Vitamin D deficiency PROLACTIN Routine 12/02/2022 PCOS (polycystic ovarian syndrome) INSULIN Routine 12/02/2022 PCOS (polycystic ovarian syndrome) ESTRADIOL Routine 12/02/2022 PCOS (polycystic ovarian syndrome) T3, FREE Routine 12/02/2022 Weight gain Other fatigue TESTOSTERONE Routine 12/02/2022 PCOS (polycystic ovarian syndrome) LUTEINIZING HORMONE Routine 12/02/2022 PCOS (polycystic ovarian syndrome) FOLLICLE STIMULATING HORMONE Routine 12/02/2022 PCOS (polycystic ovarian syndrome) COMPREHENSIVE METABOLIC PANEL Routine 12/02/2022 Weight gain Other fatigue documented in this encounter Results * Insulin (12/02/2022) 12/02/2022 [employer] PAGE MAKEUP SYSTEM OPERATOR-KILN CLEANER LAB BLOOD ORDERABLES Final Result Performing Organization Address [facility] de Phone Number SUNQUEST * FSH (12/02/2022) Blood 12/02/2022 [employer] PAGE MAKEUP SYSTEM OPERATOR-KILN CLEANER LAB BLOOD ORDERABLES Final Result Performing Organization Address [facility] de Phone Number SUNQUEST * Luteinizing hormone (12/02/2022) Blood 12/02/2022 [employer] PAGE MAKEUP SYSTEM OPERATOR-KILN CLEANER LAB BLOOD ORDERABLES Final Result Performing Organization Address [facility] de Phone Number SUNQUEST * Estradiol (12/02/2022) Blood 12/02/2022 [employer] PAGE MAKEUP SYSTEM OPERATOR-KILN CLEANER LAB BLOOD ORDERABLES Final Result Performing Organization Address [facility] de Phone Number SUNQUEST * Testosterone (12/02/2022) Blood 12/02/2022 [employer] PAGE MAKEUP SYSTEM OPERATOR-KILN CLEANER LAB BLOOD ORDERABLES Final Result Performing Organization Address [facility] de Phone Number SUNQUEST * Prolactin level (12/02/2022) Blood 12/02/2022 [employer]lachter PAGE MAKEUP SYSTEM OPERATOR-KILN CLEANER LAB BLOOD ORDERABLES Final Result Performing Organization Address [facility] de Phone Number SUNQUEST * CBC auto differential (12/02/2022) 12/02/2022 Xena Simpsoner PAGE MAKEUP SYSTEM OPERATOR-KILN CLEANER LAB BLOOD ORDERABLES Final Result Performing Organization Address [facility] de Phone Number SUNQUEST * Comprehensive metabolic panel (12/02/2022) 12/02/2022 [facility] PAGE MAKEUP SYSTEM OPERATOR-KILN CLEANER LAB BLOOD ORDERABLES Final Result Performing Organization Address [facility] de Phone Number SUNQUEST * Vitamin D 25 hydroxy (12/02/2022) Blood 12/02/2022 Xena Taylorchter PAGE MAKEUP SYSTEM OPERATOR-KILN CLEANER LAB BLOOD ORDERABLES Final Result Performing Organization Address [facility] de Phone Number SUNQUEST * Thyroid profile includes TSH FT4 (12/02/2022) 12/02/2022 Xena Taylorchter PAGE MAKEUP SYSTEM OPERATOR-KILN CLEANER LAB BLOOD ORDERABLES Final Result Performing Organization Address [facility] de Phone Number SUNQUEST * Thyroid peroxidase antibody (12/02/2022) 12/02/2022 Xena Taylorchter PAGE MAKEUP SYSTEM OPERATOR-KILN CLEANER LAB BLOOD ORDERABLES Final Result Performing Organization Address [facility] de Phone Number SUNQUEST * T3, free (12/02/2022) 12/02/2022 [employer] PAGE MAKEUP SYSTEM OPERATOR-KILN CLEANER LAB BLOOD ORDERABLES Final Result Performing Organization Address [facility] de Phone Number SUNQUEST documented in this encounter Visit Diagnoses Diagnosis Weight gain Other symptoms concerning nutrition, metabolism, and development Other fatigue Vitamin D deficiency PCOS (polycystic ovarian syndrome) Polycystic ovaries documented in this encounter Additional Health Concerns Assessment Noted Time PHQ-9 Depression Total Score: 21 023 2:59 PM EST A Body Mass Index follow-up plan has been documented for the patient 11/30/2022 2:17 PM EST documented as of this encounter Care Teams Director Of Student Financial Services Relationship Specialty Start Date End Date Xena Bryant APRN-ARACELIS [address] [place] [address] PCP - General Family Medicine 02/07/25 documented as of this encounter
--- OUTSIDE RECORDS SUMMARY | 2025-04-23 07:18 | XMS_ITS | CCD ---
Author Organization [facility] Care Team Providers Care Photo Machine Operator Name Role Phone Alena Arteaga Unavailable Unavailable Unavailable Julianna Diamante Unavailable Alena Arteaga Unavailable VANESSA BENITEZ Attending Unavailable ELIVANESSA NUGENT Consulting Unavailable NADERER, DR KENY Holden Primary Care Unavailable ELIVANESSA NUGENT Admitting Unavailable NADERER, DR KENY Holden Primary Care Unavailable ELI, VANESSA Admitting Unavailable VANESSA BENITEZ Attending Unavailable VANESSA BENITEZ Consulting Unavailable [facility], DR STODDARD Primary Care Unavailable NINOSKA ., DR MORRISON Admitting Unavailable NINOSKA ., DR MORRISON Attending Unavailable GIGI, DR BUSTER Reeder Consulting Unavailable NINOSKA ., DR MORRISON Consulting Unavailable NINOSKA ., DR MORRISON Procedure Practitioner Unavail able GIGI, DR BUSTER Reeder Consulting Unavailable NINOSKA ., DR MORRISON Admitting Unavailable NADERER, DR KENY Holden Primary Care Unavailable NINOSKA ., DR MORRISON Attending Unavailable NINOSKA ., DR MORRISON Consulting Unavailable GIGI, DR BUSTER Reeder Consulting Unavailable NINOSKA ., DR MORRISON Admitting Unavailable NADERER, DR KENY Holden Primary Care Unavailable NINOSKA ., DR MORRISON Attending Unavailable NINOSKA ., DR MORRISON Consulting Unavailable NINOSKA ., DR MORRISON Admitting Unavailable NADERER, DR KENY Holden Primary Care Unavailable NINOSKA ., DR MORRISON Consulting Unavailable NINOSKA ., DR MORRISON Attending Unavailable NINOSKA ., DR MORRISON Admitting Unavailable NADERER, DR KENY Holden Primary Care Unavailable NINOSKA ., DR MORRISON Attending Unavailable NINOSKA ., DR MORRISON Consulting Unavailable NATYBHARAT Consulting Unavailable MORGOABDIFATAH Oneill Consulting Unavailable NINOSKA ., DR MORRISON Admitting Unavailable NADERER, DR KENY Holden Primary Care Unavailable NINOSKA ., DR MORRISON Attending Unavailable WEST, DR BUSTER Reeder Consulting Unavailable NINOSAK ., DR MORRISON Admitting Unavailable NINOSKA ., DR MORRISON Attending Unavailable NADERER, DR KENY Holden Primary Care Unavailable NINOSKA ., DR MORRISON Consulting Unavailable KARASIK ., DR WALL Consulting Unavailabl e NINOSKA ., DR MORRISON Admitting Unavailable NINOSKA ., DR MORRISON Attending Unavailable NADERER, DR KENY Holden Primary Care Unavailable NINOSKA ., DR MORRISON Consulting Unavailable ZIEBER, DR JEMMA Rankin Consulting Unavailable KARASIK ., DR WALL Consulting Unavailabl e NINOSKA ., DR MORRISON Admitting Unavailable NADERER, DR KENY Holden Primary Care Unavailable NINOSKA ., DR MORRISON Attending Unavailable NINOSKA ., DR MORRISON Consulting Unavailable ZIEBER, DR JEMMA Rankin Consulting Unavailable NADERER, DR KENY Holden Primary Care Unavailable NINOSKA ., DR MORRISON Admitting Unavailable NINOSKA ., DR MORRISON Attending Unavailable NINOSKA ., DR MORRISON Consulting Unavailable NADERER, DR KENY Holden Primary Care Unavailable KARASIK ., DR WALL Attending Unavailabl e KARASIK ., DR WALL Consulting Unavailabl e KARASIK ., DR WALL Admitting Unavailabl e NINOSKA ., DR MORRISON Consulting Unavailable ZIEBER, DR JEMMA Rankin Consulting Unavailable NADERER, DR KENY Holden Primary Care Unavailable NINOSKA ., DR MORRISON Admitting Unavailable NINOSKA ., DR MORRISON Attending Unavailable NINOSKA ., DR MORRISON Consulting Unavailable NADERER, DR KENY Holden Primary Care Unavailable KARASIK ., DR WALL Attending Unavailabl e KARASIK ., DR WALL Consulting Unavailabl e KARASIK ., DR WALL Admitting Unavailabl e WEST, DR BUSTER Reeder Consulting Unavailable NINOSKA ., DR MORRISON Admitting Unavailable NADERER, DR KNEY Holden Primary Care Unavailable NINOSKA ., DR MORRISON Attending Unavailable NINOSKA ., DR MORRISON Consulting Unavailable MISC, DR STODDARD Attending Unavailable MISC, DR STODDARD Consulting Unavailable MISC, DR STODDARD Primary Care Unavailable MISC, DR DOCTOR Admitting Unavailable NADERER, DR KENY Holden Primary Care Unavailable NINOSKA ., DR MORRISON Admitting Unavailable NINOSKA ., DR MORRISON Attending Unavailable NINOSKA ., DR MORRISON Consulting Unavailable NADERER, DR KENY Holden Consulting Unavailable NADERER, DR KENY Holden Primary Care Unavailable NINOSKA ., DR MORRISON Admitting Unavailable NINOSKA ., DR MORRISON Attending Unavailable NINOSKA ., DR MORRISON Consulting Unavailable NINOSKA ., DR MORRISON Admitting Unavailable NINOSKA ., DR MORRISON Attending Unavailable NADERER, DR KENY Holden Primary Care Unavailable KARASIK ., DR WALL Consulting Unavailabl e KARASIK ., DR WALL Admitting Unavailabl e KARASIK ., DR WALL Attending Unavailabl e NADERER, DR KENY Holden Primary Care Unavailable NIRAV BRYANT Attending Unavailable SCHLAEMELYER, NIRAV Referring Unavailable SCHLACHTER, NIRAV Primary Care Unavailable NIRVA BRYANT Attending Unavailable SCHLIEN, NIRAV Referring Unavailable SCHLACHTER, NIRAV Primary Care Unavailable Bethany PATEL Attending Unavailable Schlachter [facility], Nirav Primary Care Provide r NIRAV BRYANT Referring Unavailable SCHLACHTER, NIRAV Primary Care Unavailable SCHLIEN, NIRAV Referring Unavailable SCHMDCHTER, NIRAV Primary Care Unavailable BLAYNE LIU Attending Unavailable SCHLIEN, NIRAV Referring Unavailable SCHMDCHTER, NIRAV Primary Care Unavailable BLAYNE LIU Attending Unavailable VALENTIN, NIRAV Referring Unavailable SCHMDEMELY, NIRAV Primary Care Unavailable SCHMDMAHESH, NIRAV Primary Care Unavailable CARISA EDMONDS Attending Unavailable Medications Current Medications Medication Drug Class(es) Dates Sig (Normalized) Sig (Original) acetaZOLAMIDE (1 source) Carbonic Anhydrase Inhibitor acetaZOLAMIDE Active [id number] 200 actuat albuterol 0.09 mg/actuat metered dose inhaler (7 sources) beta2-Adrenergic Agonist Start: 09-17-2022 albuterol (PROVENTIL HFA;VENTOLIN HFA) 90 mcg/actuation inhaler 09/17/2022 Active Start: 12-13-2021 Albuterol Sulf ate (2.5 MG/3ML) 0.083% 3 ml as needed Inhalation qid prn Dec, Active azithromycin 250 mg oral tab let (4 sources) Macrolide Antimicrobial Start: 08-23-2021 Start: 08-23-2021 Zithromax 250 MG 2 tablet on the first day, then 1 tablet daily for 4 days Orally Once a day for 5 day(s) Aug, Active busPIRone hydrochloride 10 mg oral tablet (1 source) Start: 08-02-2024 take 1 tablet by mouth in the morning, then take 1 tablet by mouth at bedtime busPIRone (BUSPAR) 10 mg tablet Indications: Generalized anxiety disorder with panic attacks , Moderate episode of recurrent major depressive disorder (CMS-HCC) Take 1 tablet (10 mg total) by mouth in the morning and 1 tablet (10 mg total) before bedtime. 180 tablet 1 08/02/2024 Active ergocalciferol 1.25 mg oral capsule (6 sources) Provitamin D2 Compound Start: 09-03-2021 take 1 capsule by mouth every week Ergocalciferol 1.25 MG (83319 UT) 1 capsule Orally weekly for 30 day(s) Aug, Active Vitamin D 60410 UNIT CAPS TAKE 1 CAPSULE WEEKLY. Quantity: 0 Refills: 0 Ordered: 21-Sep-2021 DO Active escitalopram 20 mg oral tablet (7 sources) Serotonin Reuptake Inhibitor Start: 08-02-2024 take 1 tablet by mouth in the morning escitalopram (LEXAPRO) 20 mg tablet Indications: Generalized anxiety disorder with panic attacks , Moderate episode of recurrent major depressive disorder (CMS-HCC) Take 1 tablet (20 mg total) by mouth in the morning. 90 tablet 1 08/02/2024 Active Start: 02-09-2023 End: 12-09-2023 take 1 tablet by mouth in the morning escitalopram (LEXAPRO) 20 mg tablet Take 1 tablet (20 mg total) by mouth in the morning. 90 tablet 1 12/09/2023 Active fluticasone propionate 0.05 mg/actuat metered dose nasal spray (2 sources) Corticosteroid Start: 11-10-2021 take 2 spray(s) nasal route once daily Fluticasone Propionate 50 MCG/ACT 2 sprays Nasally Once a day for 14 day(s) Nov, Active Metoprolol (6 sources) beta-Adrenergic Joss Metoprolol Tartr ate Active nystatin 100 unt/mg topical powder (7 sources) Polyene Antifungal Start: 12-19-2023 nystatin (M YCOSTATIN) powder Apply 1 Application topically in the morning and 1 Application at noon and 1 Application in the evening and 1 Application before bedtime. 15 g 12/19/2023 Active Start: 03-01-2023 End: 12-19-2023 nystatin (MYCOSTATIN) cream Apply 1 Application topically in the morning and 1 Application before bedtime. 30 g 0 03/01/2023 12/19/2023 Discontinued sertraline 100 mg oral tablet (7 sources) Serotonin Reuptake Inhibitor Sertraline HCl 100 M G 1.5 tablets for 2 weeks then increase to 2 tablets a day Orally Once a day for 30 day(s) Active take 1 tablet by mouth once gian y Zoloft 100 MG Oral Tablet TAKE 1 TABLET DAILY DIRECTED. Quantity: 0 Refills: 0 Ordered: 21-Sep-2021 DO Active Sertraline HCl A ctive topiramate 50 mg oral tablet (4 sources) Start: 09-10-2021 take 1 tablet by mathew th every twenty-four hours take 1 tablet by mouth once gian y Topamax 25 MG Oral Tablet Take 1 tablet daily Quantity: 0 Refills: 0 Ordered: 21-Sep-2021 DO Active Completed/Discontinued Medications Medication Drug Class(es) Dates Sig (Normalized) Sig (Original) acetaminophen 24 mg/ml / codeine phosphate 2.4 mg/ml oral solution (4 sources) Opioid Agonist Start: 05-05-2023 End: 02-23-2024 acetaminophen-codein e (TYLENOL WITH CODEINE) 120-12 mg/5 mL solution 05/05/2023 02/23/2024 Discontinued (Therapy completed) amoxicillin 875 mg oral tablet (6 sources) Penicillin-class Antibacterial Start: 06-30-2021 take 1 tablet by mouth every twelve hours Amoxicillin 875 MG 1 tablet Orally every 12 hrs for 7 days Jun, Not-Taking dulaglutide (TRULICITY) 3 mg/0.5 mL pen injector (4 sources) Start: 12-15-2023 End: 02-23-2024 dulaglutide (TRULICITY) 3 mg/0.5 mL pen injector Indications: Hyperinsulinism , PCOS (polycystic ovarian syndrome) Inject 3 mg under the skin every 7 days. 2 mL 1 12/15/2023 02/23/2024 Discontinued Start: 12-15-2023 dulaglutide (T RULICITY) 3 mg/0.5 mL pen injector Indications: Hyperinsulinism , PCOS (polycystic ovarian syndrome) Inject 3 mg under the skin every 7 days. 2 mL 1 12/15/2023 Active Start: 12-15-2023 End: 12-15-2023 dulaglutide (TRULICITY) 3 mg /0.5 mL pen injector Inject 3 mg under the skin every 7 days. 2 mL 1 12/15/2023 12/15/2023 Discontinued dulaglutide (TRULICITY) 4.5 mg/0.5 mL pen injector (3 sources) Start: 12-09-2023 End: 12-15-2023 dulaglutide (TRULICITY) 4.5 mg/0.5 mL pen injector Indications: Hyperinsulinism , PCOS (polycystic ovarian syndrome) Inject 4.5 mg under the skin every 7 days. 2 mL 2 12/09/2023 12/15/2023 Discontinued Start: 12-09-2023 dulaglutide (T RULICITY) 4.5 mg/0.5 mL pen injector Indications: Hyperinsulinism , PCOS (polycystic ovarian syndrome) Inject 4.5 mg under the skin every 7 days. 2 mL 2 12/09/2023 Active Start: 07-13-2023 End: 12-09-2023 dulaglutide (TRULICITY) 4.5 mg/0.5 mL pen injector Indications: Hyperinsulinism , PCOS (polycystic ovarian syndrome) Inject 4.5 mg under the skin every 7 days. 2 mL 2 07/13/2023 12/09/2023 Discontinued (Reorder) Problems Active Problems Problem Classification Problem Date Documented Da te Episodic/Chronic Anxiety disorders (9 sources) Generalized anxiety disorder; Translations: [Generalized anxiety disorder] Onset: 05-24-2022 02-23-2024 Chronic Cardiac dysrhythmias (1 source) Ventricular premature beats; Translations: [Other premature beats] Chronic Conditions associated with dizziness or vertigo (3 sources) Dizziness and giddiness; Translations: [Dizziness] Onset: 02-07-2025 Episodic Malaise and fatigue (5 sources) Fatigue; Translations: [Chronic fatigue, unspecified] Chronic Menstrual disorders (4 sources) Amenorrhea; Translations: [Amenorrhea, unspecified] Onset: 09-20-2021 Resolved: 09-20-2021 Chronic Mood disorders (6 sources) Major depressive disorder, recurrent, in full remission; Translations: [Other specified depressive episodes] Onset: 05-24-2022 02-23-2024 Chronic Nonspecific chest pain (2 sources) Chest pain, unspecified; Translations: [Chest pain] Onset: 02-23-2024 02-23-2024 Episodic Nutritional deficiencies (1 source) Vitamin D deficiency, unspecified; Translations: [VITAMIN D DEFICIENCY UNSPECIFIED] Onset: 12-03-2022 Chronic Other complications of ; puerperium 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 (1 source) Obesity complicating childbirth; Translations: [OBESITY COMPLICATING CHILDBIRTH] Onset: 05-24-2022 Chronic Other endocrine disorders (3 sources) Polycystic ovarian syndrome; Translations: [POLYCYSTIC OVARIAN SYNDROME] Onset: 12-03-2022 Chronic Other endocrine disorders (2 sources) Other hypoglycemia; Translations: [Other hypoglycemia] Onset: 02-23-2024 Chronic Other endocrine disorders (3 sources) Polycystic ovary syndrome; Translations: [Polycystic ovarian syndrome] 02-23-2024 Chronic Other endocrine disorders (3 sources) Hyperinsulinism; Translations: [Other hypoglycemia] 02-23-2024 Chronic Other nervous system disorders (12 sources) Benign intracranial hypertension; Translations: [Benign intracranial hypertension] Onset: 12-28-2016 12-28-2016 Chronic Other nervous system disorders (1 source) Benign intracranial hypertension; Translations: [Benign intracranial hypertension] Onset: 12-28-2016 Chronic Other nutritional; endocrine; and metabolic disorders (1 source) Body mass index 40+ - severely obese; Translations: [Morbid obesity] Chronic Other nutritional; endocrine; and metabolic disorders (1 source) Obesity, unspecified; Translations: [OBESITY UNSPECIFIED] Onset: 07-23-2022 Chronic Other nutritional; endocrine; and metabolic disorders (1 source) Body mass index (BMI) 40.0-44.9, adult; Translations: [BODY MASS INDEX BMI 40.0-44.9 ADULT] Onset: 07-23-2022 Chronic Other nutritional; endocrine; and metabolic disorders (1 source) Morbid (severe) obesity due to excess calories; Translations: [MORBID SEVERE OBES D/T EXCESS SHELLY] Onset: 05-24-2022 Chronic Unclassified (4 sources) CONTACT W/AND (SUSP) EXPOS COVID-19; Translations: [CONTACT W/AND (SUSP) EXPOS COVID-19] Onset: 05-24-2022 Unclassified (1 source) Annual Exam Onset: 12-15-2023 Past or Other Problems Problem Classification Problem Date Documented Date Episodic/Chronic Administrative/social admission (4 sources) Encounter for pre-employment examination; Translations: [ENCOUNTER FOR PRE-EMPLOYMENT EXAM] Onset: 06-17-2022 Episodic Cardiac dysrhythmias (4 sources) Palpitations; Translations: [Palpitations] Onset: 02-23-2024 02-23-2024 Episodic Chronic obstructive pulmonary disease and bronchiectasis (1 source) Bronchitis, not specified as acute or chronic Onset: 12-13-2021 Resolved: 12-13-2021 Episodic Contraceptive and procreative management (5 sources) Encounter for sterilization; Translations: [ENCOUNTER FOR STERILIZATION] Onset: 07-16-2022 Episodic Diabetes or abnormal glucose tolerance complicating ; childbirth; or the puerperium (3 sources) Gestational diabetes mellitus in childbirth, diet controlled; Translations: [GEST DM CHILDBIRTH DIET CONTROL] Onset: 05-18-2022 Episodic Hypertension complicating ; childbirth and the puerperium (1 source) Gestational [-induced] hypertension without significant proteinuria, complicating childbirth; Translations: [GESTATIONAL HTN W/O SIGN PU COMP CB] Onset: 05-24-2022 Episodic Immunizations and screening for infectious disease (3 sources) Contact with and (suspected) exposure to other viral communicable diseases; Translations: [Contact with and (suspected) exposure to other viral communicable diseases Z20.828] Onset: 08-23-2021 Resolved: 12-13-2021 Episodic Malaise and fatigue (1 source) Other fatigue; Translations: [OTHER FATIGUE] Onset: 12-03-2022 Episodic Miscellaneous mental health disorders (1 source) depression; Translations: [ DEPRESSION] Onset: 07-23-2022 Episodic Mood disorders (6 sources) Mood disorders Onset: 02-01-2023 Resolved: 03-07-2024 02-01-2023 OB-related trauma to perineum and vulva (1 source) First degree perineal laceration during delivery; Translations: [FIRST DEG PERINEAL LAC DUR DELIV] Onset: 05-24-2022 Episodic Other complications of ; puerperium 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 (1 source) Other mental disorders complicating childbirth; Translations: [OT MENTAL D/O COMP CHILDBIRTH] Onset: 05-24-2022 Episodic Other complications of ; puerperium 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 (12 sources) condition affecting obstetrical care of mother; Translations: [ complicated by cerebral ventriculomegaly] Onset: 06-25-2014 Resolved: 10-12-2019 10-12-2019 Episodic Other complications of (5 sources) Maternal care for excessive growth, third trimester, not applicable or unspecified; Translations: [MAT CARE EXCSS FTL GRTH 3RD TRI UNS] Onset: 05-13-2022 Episodic Other complications of (4 sources) Other specified related conditions, third trimester; Translations: [OT SPEC PREG RELATED COND 3RD TRI] Onset: 03-15-2022 Episodic Other complications of (6 sources) RhD negative; Translations: [Other specified related conditions, unspecified trimester] Onset: 12-28-2016 12-28-2016 Episodic Other complications of (6 sources) History of pre-eclampsia; Translations: [Supervision of with other poor reproductive or obstetric history, unspecified trimester] Onset: 09-07-2019 09-07-2019 Episodic Other complications of (6 sources) Abnormal biochemical finding on screening of mother; Translations: [Abnormal biochemical finding on screening of mother] Onset: 08-30-2019 10-12-2019 Episodic Other lower respiratory disease (2 sources) Shortness of breath; Translations: [Shortness of breath] Onset: 02-23-2024 Episodic Other lower respiratory disease (1 source) Dyspnea; Translations: [Shortness of breath] 02-23-2024 Episodic Other nutritional; endocrine; and metabolic disorders (4 sources) Abnormal weight gain; Translations: [ABNORMAL WEIGHT GAIN] Onset: 12-02-2022 Episodic Other and delivery including normal (2 sources) ; Translations: [ state, incidental] Onset: 05-24-2022 Episodic Other screening for suspected conditions (not mental disorders or infectious disease) (4 sources) Encounter for screening for Streptococcus B; Translations: [ENC SCR STREPTOCOCCUS B] Onset: 05-06-2022 Episodic Other upper respiratory infections (3 sources) Streptococcal pharyngitis; Translations: [Acute pharyngitis, unspecified] Onset: 08-23-2021 Resolved: 11-10-2021 Episodic Residual codes; unclassified (1 source) Acquired absence of other specified parts of digestive tract; Translations: [ACQ ABSENCE OTH PART DIGESTV TRACT] Onset: 07-23-2022 Episodic Residual codes; unclassified (1 source) 37 weeks gestation of ; Translations: [37 WEEKS GESTATION OF ] Onset: 05-24-2022 Episodic Residual codes; unclassified (1 source) 36 weeks gestation of ; Translations: [36 WEEKS GESTATION OF ] Onset: 05-17-2022 Episodic Residual codes; unclassified (1 source) 35 weeks gestation of ; Translations: [35 WEEKS GESTATION OF ] Onset: 05-07-2022 Episodic Residual codes; unclassified (1 source) 34 weeks gestation of ; Translations: [34 WEEKS GESTATION OF ] Onset: 04-28-2022 Episodic Residual codes; unclassified (1 source) 33 weeks gestation of ; Translations: [33 WEEKS GESTATION OF ] Onset: 04-21-2022 Episodic Residual codes; unclassified (1 source) Unspecified blood type, Rh negative; Translations: [UNSPECIFIED BLOOD TYPE RH NEGATIVE] Onset: 03-15-2022 Episodic Residual codes; unclassified (1 source) 28 weeks gestation of ; Translations: [28 WEEKS GESTATION OF ] Onset: 03-15-2022 Episodic Residual codes; unclassified (6 sources) Family history of cleft palate with cleft lip; Translations: [Family history of other congenital malformations, deformations and chromosomal abnormalities] Onset: 12-28-2016 12-28-2016 Episodic Unclassified (1 source) Never smoked tobacco; Translations: [Never a smoker] Unclassified (1 source) CONTACT W/AND (SUSP) EXPOS COVID-19; Translations: [CONTACT W/AND (SUSP) EXPOS COVID-19] Onset: 11-01-2022 Unclassified (6 sources) Onset: 12-15-2023 Resolved: 02-23-2024 02-23-2024 Results Test Name Value Interpretation Reference Range Facility BASIC METABOLIC PANLon 02-07 Anion gap [Moles/Vol] 5 mmol/L Normal 5-15 [facility] Comment on above: Performed By: #### B BRANDON SANFORD, 83161-8 #### [facility] ([id number]) [address] [place] [address] 73296 Calcium [Mass/Vol] 8.4 mg/dL Low 8.5-10.5 [facility] Comment on above: Performed By: #### B BRANDON SANFORD, 63497-6 #### [facility] ([id number]) [address] [place] [address] 89180 Chloride [Moles/Vol] 107 mmol/L Normal 98-109 [facility] Comment on above: Performed By: #### B BRANDON SANFORD, 03579-2 #### [facility] ([id number]) [address] [place] [address] 47500 CO2 [Moles/Vol] 25 mmol/L Normal 22-32 [facility] Comment on above: Performed By: #### B BRANDON SANFORD, 44586-6 #### [facility] ([id number]) [address] [place] [address] 18385 Creatinine [Mass/Vol] 0.61 mg/dL Normal 0.40-1.00 [facility] Comment on above: Result Comment: METH OD TRACEABLE TO IDMS STANDARD Performed By: #### B BRANDON SANFORD, 78351-0 #### [facility] ([id number]) [address] [place] [address] 24495 eGFR (CKD-EPI) NON-RACE DEPENDENT >90 Normal >59 [facility] Comment on above: Result Comment: Reported eGFR is based on the CKD-EPI 2020 equation that does not use a race coefficient. Performed By: #### B BRANDON SANFORD, 69439-3 #### [facility] ([id number]) [address] [place] [address] 11324 Glucose [Mass/Vol] 107 mg/dL High 65-99 [facility] Comment on above: Performed By: #### B MP, CBCA, 16376-2 #### [facility] ([id number]) [address] [place] [address] 45949 Potassium [Moles/Vol] 3.7 mmol/L Normal 3.5-5.0 [facility] Comment on above: Performed By: #### B MP, CBCA, 79576-5 #### [facility] ([id number]) [address] [place] [address] 29012 Sodium [Moles/Vol] 137 mmol/L Normal 134-146 [facility] Comment on above: Performed By: #### B MP, CBCA, 90730-9 #### [facility] ([id number]) [address] [place] [address] 03315 Urea nitrogen [Mass/Vol] 10 mg/dL Normal 5-23 [facility] Comment on above: Performed By: #### B MP, CBCA, 76327-8 #### [facility] ([id number]) [address] [place] [address] 53212 CBC AND AUTO DIFFon 02-08-20 25 ABSOLUTE BASOPHIL 0.1 X10E9/L Normal 0.0-0.2 [facility] Comment on above: Performed By: #### B MP, CBCA, 09661-9 #### [facility] ([id number]) [address] [place] [address] [place] [address] ABSOLUTE NEUTROPHIL 5.1 X10E9/L Normal 1.5-6.6 [facility] Comment on above: Performed By: #### B MP, CBCA, 38056-3 #### [facility] ([id number]) [address] [place] [address] 05866 Basophils/100 WBC (Bld) 1.1 % Normal [facility] Comment on above: Performed By: #### B JUVENAL, CBCA, 67344-5 #### [facility] ([id number]) [address] [place] [address] 64130 Eosinophils (Bld) [#/Vol] 0.2 10*3/uL Normal 0.0-0.4 [facility] Comment on above: Performed By: #### B JUVENAL, CBCA, 43855-7 #### [facility] ([id number]) [address] [place] [address] 35672 Eosinophils/100 WBC (Bld) 1.9 % Normal [facility] Comment on above: Performed By: #### B JUVENAL, CBCA, 94296-1 #### [facility] ([id number]) [address] [place] [address] 32418 Erythrocyte distribution width (RBC) [Ratio] 14.3 % Normal 11.5-15.0 [facility] Comment on above: Performed By: #### B JUVENAL, CBCA, 67501-2 #### [facility] ([id number]) [address] [place] [address] 70360 Hematocrit (Bld) [Volume fraction] 40.4 % Normal 35-47 [facility] Comment on above: Performed By: #### Erinn SANFORD, CBCA, 40063-6 #### [facility] ([id number]) [address] [place] [address] 06085 Hemoglobin (Bld) [Mass/Vol] 14.3 g/dL Normal 11.7-15.5 [facility] Comment on above: Performed By: #### B JUVENAL, CBCA, 50780-4 #### [facility] ([id number]) [address] [place] [address] 55515 Lymphocytes (Bld) [#/Vol] 2.3 10*3/uL Normal 1.0-3.5 [facility] Comment on above: Performed By: #### B JUVENAL, CBCA, 84331-1 #### [facility] ([id number]) [address] [place] [address] 23730 Lymphocytes/100 WBC (Bld) 27.9 % Normal [facility] Comment on above: Performed By: #### B JUVENAL, CBCA, 11722-7 #### [facility] ([id number]) [address] [place] [address] 11746 MCH (RBC) [Entitic mass] 27.2 pg Normal 27-34 [facility] Comment on above: Performed By: #### B JUVENAL, CBCA, 49970-5 #### [facility] ([id number]) [address] [place] [address] 53521 MCHC (RBC) [Mass/Vol] 35.4 g/dL Normal 32-36 [facility] Comment on above: Performed By: #### B JUVENAL, CBCA, 20838-7 #### [facility] ([id number]) [address] [place] [address] 88204 MCV (RBC) [Entitic vol] 77 fL Low 80-100 [facility] Comment on above: Performed By: #### B JUVENAL, CBCA, 08372-9 #### [facility] ([id number]) [address] [place] [address] 64100 Monocytes (Bld) [#/Vol] 0.5 10*3/uL Normal 0-0.9 [facility] Comment on above: Performed By: #### B JUVENAL, CBCA, 30658-1 #### [facility] ([id number]) [address] [place] [address] 47100 Monocytes/100 WBC (Bld) 6.6 % Normal [facility] Comment on above: Performed By: #### B JUVENAL, CBCA, 48715-1 #### [facility] ([id number]) [address] [place] [address] 29108 Neutrophils/100 WBC (Bld) 62.5 % Normal [facility] Comment on above: Performed By: #### B JUVENAL CBCA, 71094-8 #### [facility] ([id number]) [address] [place] [address] 94371 Platelet mean volume (Bld) [Entitic vol] 7.1 fL Normal 7-12 [facility] Comment on above: Performed By: #### B JUVENAL CBCA, 34584-6 #### [facility] ([id number]) [address] [place] [address] 66255 Platelets (Bld) [#/Vol] 431 10*3/uL Normal 150-450 [facility] Comment on above: Performed By: #### B JUVENAL CBCA, 94897-9 #### [facility] ([id number]) [address] [place] [address] 54158 RBC COUNT 5.25 X10E12/L High 3.80-5.20 [facility] Comment on above: Performed By: #### B JUVENAL CBCA, 18359-9 #### [facility] ([id number]) [address] [place] [address] 02441 WBC (Bld) [#/Vol] 8.2 10*3/uL Normal 4.0-11.0 [facility] Comment on above: Performed By: #### B JUVENAL CBCA, 35805-5 #### [facility] ([id number]) [address] [place] [address] BRAIN WO CONTon 5 CT BRAIN WO CONT CT BRAIN WO CONT EXAM:CT BRAIN WO CONT INDICATION: dizziness COMPARISON: [...] by Carlos [place] on 02/07/2025 7:48 AM Normal [facility] Troponin I.cardiac High sens itivity method [Mass/Vol]on 02-07-2025 TROPONIN I, HIGH SENSITIVITY <2 Normal <16 [facility] Comment on above: Performed By: #### B MP, CBCA, 94996-3 #### [facility] ([id number]) [address] [place] [address], [place] [address] Hep Bs Abon 07-31-2024 HBV surface Ab Ql (S) Non-Reactive Invalid Interpretation Code [facility] Comment on above: Result Comment: Non Reactive: Not immune to HBV infection. Equivocal: Unable to determine if anti-HBs is present at levels consistent with immunity. Reactive: Anti-HBs concentration detected at greater than 10 mIU/mL. Individual is considered to be immune to infection with HBV. Performed at: [facility] [id number] PhD Constantine Peralta Performed By: #### 2 [id number] #### [facility] [address] [place] [address] Measles/Mumps/Rubella Immuni tyon 07-31-2024 MeV IgG IA Qn (S) {index_val} Low Immune >16.4 [facility] Comment on above: Result Comment: Nega tive <13.5 Equivocal 13.5 - 16.4 Positive >16.4 Presence of antibodies to Rubeola is presumptive evidence of immunity except when acute infection is suspected. Performed By: #### 3 [id number] #### [facility] [address] [place] [address] MuV IgG IA Qn (S) 10.9 A unit/mL Low Immune >10.9 [facility] Comment on above: Result Comment: A se cond sample should be collected and tested no less than 2-4 weeks. Negative <9.0 Equivocal 9.0 - 10.9 Positive >10.9 A positive result generally indicates past exposure to Mumps virus or previous vaccination. Performed at: [address] [id number] PhD Constantine Peralta Performed By: #### 3 [id number] #### [facility] [address] [place] [address]356 Rubella virus IgG Qn (S) [IU]/mL Low Immune >0.99 [facility] Comment on above: Result Comment: Non- immune <0.90 Equivocal 0.90 - 0.99 Immune >0.99 Performed By: #### 3 [id number] #### [facility] [address] [place] [address] 46662 Varic IgGon 07-31-2024 Varicella IgG Reactive Invalid Interpretation Code Non Reactive [facility] Comment on above: Result Comment: Pl ease note reference interval change Non Reactive: VZV IgG was not detected suggesting that immunity has not been acquired. A non reactive result does not exclude the possibility of acute VZV infection. If recent exposure to VZV is suspected, another sample should be collected and tested. Reactive: VZV IgG was detected indicating previous infection and/or vaccination. VZV IgG cannot be used to determine the stage and/or timing of infection. Performed at: [address] [id number] PhD Constantine Peralta Performed By: #### 1 [id number] #### [facility] [address] [place] [address] CBC AND AUTO DIFFon 03-01-20 ABSOLUTE BASOPHIL 0.1 X10E9/L Normal 0.0-0.2 [facility] Comment on above: Performed By: #### [place], 00952-5, CBCA, THYR #### [facility] ([id number]) [address] [place] [address] ABSOLUTE NEUTROPHIL 4.8 X10E9/L Normal 1.5-6.6 [facility] Comment on above: Performed By: #### C JUVENAL, 51919-8, CBCA, THYR #### [facility] ([id number]) [address], [address] [place] [address] Basophils/100 WBC (Bld) 0.9 % Normal [facility] Comment on above: Performed By: #### C JUVENAL, 84287-6, CBCA, THYR #### [facility] ([id number]) [address], [address] [place] [address] Eosinophils (Bld) [#/Vol] 0.1 10*3/uL Normal 0.0-0.4 [facility] Comment on above: Performed By: #### C JUVENAL, 83786-9, CBCA, THYR #### [facility] ([id number]) [address] [place] [address] Eosinophils/100 WBC (Bld) 1.7 % Normal [facility] Comment on above: Performed By: #### Chilo SANFORD, 38133-3, CBCA, THYR #### [facility] ([id number]) [address] [place] [address] Erythrocyte distribution width (RBC) [Ratio] 13.9 % Normal 11.5-15.0 [facility] Comment on above: Performed By: #### Chilo SANFORD, 41027-1, CBCA, THYR #### [facility] ([id number]) [address], [address] [place] [address] Hematocrit (Bld) [Volume fraction] 41.8 % Normal 35-47 [facility] Comment on above: Performed By: #### C JUVNEAL, 10522-5, CBCA, THYR #### [facility] ([id number]) [address], [address] [place] [address] Hemoglobin (Bld) [Mass/Vol] 13.9 g/dL Normal 11.7-15.5 [facility] Comment on above: Performed By: #### C JUVENAL 51938-2, CBCA, THYR #### [facility] ([id number]) [address], [facility] [address] [place] [address] Lymphocytes (Bld) [#/Vol] 1.9 10*3/uL Normal 1.0-3.5 [facility] Comment on above: Performed By: #### C JUVENAL 04498-0, CBCA, THYR #### [facility] ([id number]) [address], [facility] [address] [place] [address] Lymphocytes/100 WBC (Bld) 26.1 % Normal [facility] Comment on above: Performed By: #### Chilo SANFORD 54269-5, CBCA, THYR #### [facility] ([id number]) [address] [place] [address] MCH (RBC) [Entitic mass] 26.0 pg Low 27-34 [facility] Comment on above: Performed By: #### Chilo SANFORD, 06316-2, CBCA, THYR #### [facility] ([id number]) [address], [address] [place] [address] MCHC (RBC) [Mass/Vol] 33.3 g/dL Normal 32-36 [facility] Comment on above: Performed By: #### C JUVENAL 08223-1, CBCA, THYR #### [facility] ([id number]) [address], [address] [place] [address] MCV (RBC) [Entitic vol] 78 fL Low 80-100 [facility] Comment on above: Performed By: #### Chilo SANFORD 04702-7, CBCA, THYR #### [facility] ([id number]) [address], [address] [place] [address] Monocytes (Bld) [#/Vol] 0.4 10*3/uL Normal 0-0.9 [facility] Comment on above: Performed By: #### C JUVENAL, 58739-5, CBCA, THYR #### [facility] ([id number]) [address], [address] [place] [address] Monocytes/100 WBC (Bld) 5.7 % Normal [facility] Comment on above: Performed By: #### C JUVENAL, 13612-2, CBCA, THYR #### [facility] ([id number]) [address] [place] [address] Neutrophils/100 WBC (Bld) 65.6 % Normal [facility] Comment on above: Performed By: #### C JUVENAL, 90035-6, CBCA, THYR #### [facility] ([id number]) [address], [address] [place] [address] Platelet mean volume (Bld) [Entitic vol] 7.3 fL Normal 7-12 [facility] Comment on above: Performed By: #### C JUVENAL, 75751-3, CBCA, THYR #### [facility] ([id number]) [address] [place] [address] Platelets (Bld) [#/Vol] 416 10*3/uL Normal 150-450 [facility] Comment on above: Performed By: #### C JUVENAL, 95917-8, CBCA, THYR #### [facility] ([id number]) [address], [address] [place] [address] RBC COUNT 5.36 X10E12/L High 3.80-5.20 [facility] Comment on above: Performed By: #### C JUVENAL, 59881-0, CBCA, THYR #### [facility] ([id number]) [address], [address] [place] [address] WBC (Bld) [#/Vol] 7.4 10*3/uL Normal 4.0-11.0 [facility] Comment on above: Performed By: #### C JUVENAL, 84892-0, CBCA, THYR #### [facility] ([id number]) [address], [address] [place] [address] COMPREHENSIVE METABOLIC PANE Umberto 03-01-2024 Albumin [Mass/Vol] 4.5 g/dL Normal 3.2-5.3 [facility] Comment on above: Performed By: #### C JUVENAL, 79705-5, CBCA, THYR #### [facility] ([id number]) [address], [address] [place] [address] ALP [Catalytic activity/Vol] 60 U/L Normal 39-130 [facility] Comment on above: Performed By: #### C JUVENAL, 02605-4, CBCA, THYR #### [facility] ([id number]) [address], [address] [place] [address] ALT [Catalytic activity/Vol] 22 U/L Normal 0-31 [facility] Comment on above: Performed By: #### C JUVENAL, 73063-4, CBCA, THYR #### [facility] ([id number]) [address] [place] [address] Anion gap [Moles/Vol] 12 mmol/L Normal 5-15 [facility] Comment on above: Performed By: #### C JUVENAL, 00654-6, CBCA, THYR #### [facility] ([id number]) [address] [place] [address] AST [Catalytic activity/Vol] 20 U/L Normal 0-41 [facility] Comment on above: Performed By: #### C JUVENAL, 91243-4, CBCA, THYR #### [facility] ([id number]) [address] [place] [address] Bilirubin [Mass/Vol] 0.3 mg/dL Normal 0.3-1.2 [facility] Comment on above: Performed By: #### C UJVENAL, 12037-2, CBCA, THYR #### [facility] ([id number]) [address], [facility] [address] [place] [address] Calcium [Mass/Vol] 9.3 mg/dL Normal 8.5-10.5 [facility] Comment on above: Performed By: #### C JUVENAL, 56251-2, CBCA, THYR #### [facility] ([id number]) [address] [address] [place] [address] Chloride [Moles/Vol] 104 mmol/L Normal 98-109 [facility] Comment on above: Performed By: #### C JUVENAL, 89171-7, CBCA, THYR #### [facility] ([id number]) [address] [address] [place] [address] CO2 [Moles/Vol] 25 mmol/L Normal 22-32 [facility] Comment on above: Performed By: #### Chilo SANFORD, 86976-4, CBCA, THYR #### [facility] ([id number]) [address] [address] [address] [place] [address] Creatinine [Mass/Vol] 0.71 mg/dL Normal 0.40-1.00 [facility] Comment on above: Result Comment: METH OD TRACEABLE TO IDMS STANDARD Performed By: #### C JUVENAL, 30552-0, CBCA, THYR #### [facility] ([id number]) [address] [address] [address] [place] [address] eGFR (CKD-EPI) NON-RACE DEPENDENT >90 Normal >59 [facility] Comment on above: Result Comment: Reported eGFR is based on the CKD-EPI 2020 equation that does not use a race coefficient. Performed By: #### C JUVENAL, 68995-7, CBCA, THYR #### [facility] ([id number]) [address] [place] [address] Glucose [Mass/Vol] 87 mg/dL Normal 65-99 [facility] Comment on above: Performed By: #### C JUVENAL, 12734-6, CBCA, THYR #### [facility] ([id number]) [address] [place] [address] Potassium [Moles/Vol] 4.0 mmol/L Normal 3.5-5.0 [facility] Comment on above: Performed By: #### C JUVENAL, 14060-2, CBCA, THYR #### [facility] ([id number]) [address] [place] [address] Protein [Mass/Vol] 7.7 g/dL Normal 6.0-8.0 [facility] Comment on above: Performed By: #### C JUVENAL, 10059-9, CBCA, THYR #### [facility] ([id number]) [address] [place] [address] Sodium [Moles/Vol] 141 mmol/L Normal 134-146 [facility] Comment on above: Performed By: #### Chilo SANFORD, 64331-6, CBCA, THYR #### [facility] ([id number]) [address] [place] [address] Urea nitrogen [Mass/Vol] 12 mg/dL Normal 5-23 [facility] Comment on above: Performed By: #### Chilo SANFORD, 34485-3, CBCA, THYR #### [facility] ([id number]) [address] [place] [address] Insulin Qnon 03-01-2024 INSULIN 27.43 uIU/mL High 1.00-23.00 [facility] Comment on above: Result Comment: Ref. range is for FASTING NON-DIABETIC POPULATION. Performed By: #### 2 0448-7 #### [facility] ([id number]) [address] [place] [address] Lipid 1996 panelon 4 Cholesterol [Mass/Vol] 153 mg/dL Normal 150-200 [facility] Comment on above: Performed By: #### Chilo SANFORD, 99289-0, CBCA, THYR #### [facility] ([id number]) [address] [place] [address] Cholesterol in HDL [Mass/Vol] 33 mg/dL Low >39 [facility] Comment on above: Result Comment: HDL <40 mg/dL - High Risk HDL > or = 40mg/dL- Desirable HDL >60 mg/dL - Negative Risk Performed By: #### Chilo SANFORD, 91558-3, CBCA, THYR #### [facility] ([id number]) [address] [place] [address] Cholesterol in LDL [Mass/Vol] 93 mg/dL Normal <130 [facility] Comment on above: Result Comment: LDL <100 mg/dL - Desirable LDL >160 mg/dL - High Risk Performed By: #### Chilo SANFORD, 18807-6, CBCA, THYR #### [facility] ([id number]) [address] [place] [address] Cholesterol in VLDL [Mass/Vol] 27 mg/dL Normal 0-30 [facility] Comment on above: Performed By: #### Chilo SANFORD, 62883-4, CBCA, THYR #### [facility] ([id number]) [address] [place] [address] CHOLESTEROL:HDL 4.6 Normal 1.0-5.0 [facility] Comment on above: Performed By: #### C JUVENAL, 33785-7, CBCA, THYR #### [facility] ([id number]) [address] [place] [address] Triglyceride [Mass/Vol] 135 mg/dL Normal 27-150 [facility] Comment on above: Performed By: #### C JUVENAL, 44034-0, CBCA, THYR #### [facility] ([id number]) [address] [place] [address] THYROID PROFILEon 03-01-2024 Free T4 [Mass/Vol] 0.84 ng/dL Normal 0.61-1.60 [facility] Comment on above: Performed By: #### C JUVENAL, 85984-0, CBCA, THYR #### [facility] ([id number]) [address] [place] [address] TSH 1.16 uIU/mL Normal 0.49-4.67 [facility] Comment on above: Performed By: #### C JUVENAL, 40522-3, CBCA, THYR #### [facility] ([id number]) [address] [place] [address] ESTRADIOLon 12-03-2022 Estradiol 69.1 pg/mL Normal [facility] Comment on above: Result Comment: Adul t Female: Follicular phase 12.5 - 166.0 Ovulation phase 85.8 - 498.0 Luteal phase 43.8 - 211.0 Postmenopausal <6.0 - 54.7 1st trimester 215.0 - >4300.0 April ECLIA methodology Performed By: #### Deniz TIRADO ####[facility] [address] [place], [place] [address]WyAnnika Hyde FSHon 12-03-2022 FSH 7.0 mIU/mL Normal [facility] Comment on above: Result Comment: Adul t Female: Follicular phase 3.5 - 12.5 Ovulation phase 4.7 - 21.5 Luteal phase 1.7 - 7.7 Postmenopausal 25.8 - 134.8 Performed By: #### T NS #### [facility] [address] [address] [address] Nishi Hyde INSULINon 12-03-2022 Insulin 101.0 uIU/mL Critically high 2.6-24.9 [facility] Comment on above: Performed By: #### U RCX #### [facility] [address] [address] [address] Nishi Hyde LUTEINIZING HORMONE (LH)on 0 12-03-2022 LH 5.9 mIU/mL Normal [facility] Comment on above: Result Comment: Adul t Female: Follicular phase 2.4 - 12.6 Ovulation phase 14.0 - 95.6 Luteal phase 1.0 - 11.4 Postmenopausal 7.7 - 58.5 Performed By: #### T NS #### [facility] [address] [address] [address] Nishi Hyde PROLACTINon 12-03-2022 Prolactin 4.9 ng/mL Normal 4.8-23.3 [facility] Comment on above: Performed By: #### P ROLAC ####[facility] [address] [place], [place] [address]YbAnnika Hyde TESTOSTERONE, TOTALon 2022 Testosterone [Mass/Vol] 53 ng/dL Normal 13-71 [facility] Comment on above: Performed By: #### T ESTTOT ####[facility] [address] [place], [place] [address]AmDr. Nishi Hyde THYROID PEROXIDASE ABon - Thyroid Peroxidase (TPO) Ab <9 Normal 0-34 [facility] Comment on above: Performed By: #### U RCX #### [facility] [address] [address] [address] Nishi Hyde CBC AUTO DIFFon 12-02-2022 BASO # 0.1 103/ul Normal 0.0-0.1 [facility] Comment on above: Performed By: #### T NS #### [facility] [address] [address] [address] Nishi Hyde Basophils/100 WBC (Bld) 0.9 % Normal 0.2-2.0 [facility] Comment on above: Performed By: #### T NS #### [facility] [address] [address] [address] Nishi Hyde EO # 0.2 103/ul Normal 0.0-0.7 [facility] Comment on above: Performed By: #### T NS #### [facility] [address] [address] [address] Nishi Hyde Eosinophils/100 WBC (Bld) 1.8 % Normal 0.9-7.0 [facility] Comment on above: Performed By: #### T NS #### [facility] [address] [place] [address] Dr. Nishi Hyde Erythrocyte distribution width (RBC) [Ratio] 14.0 % Normal 11.0-15.0 [facility] Comment on above: Performed By: #### T NS #### [facility] [address] [place] [address] Dr. Nishi Hyde Hematocrit (Bld) [Volume fraction] 49.6 % Critically high 36.0-48.0 [facility] Comment on above: Performed By: #### T NS #### [facility] [address] [place] [address] Dr. Nishi Hyde Hemoglobin (Bld) [Mass/Vol] 14.4 g/dL Normal 12.0-16.0 [facility] Comment on above: Performed By: #### T NS #### [facility] [address] [place] [address] Dr. Nishi Hyde IG # 0.02 10e3/ul Normal 0.00-0.03 [facility] Comment on above: Performed By: #### T NS #### [facility] [address] [place] [address] Dr. Nishi Hyde IG % 0.2 % Normal 0.0-0.5 [facility] Comment on above: Performed By: #### T NS #### [facility] [address] [address] [address] Nishi Hyde LYMPH # 2.7 103/ul Normal 1.2-3.8 [facility] Comment on above: Performed By: #### T NS #### [facility] [address] [place] [address] Dr. Nishi Hyde Lymphocytes/100 WBC (Bld) 30.4 % Normal 20.5-60.0 [facility] Comment on above: Performed By: #### T NS #### [facility] [address] [place] [address] Dr. Nishi Hyde MANUAL DIFF REQ NO Normal [facility] Comment on above: Performed By: #### T NS #### [facility] [address] [place] [address] Dr. Nishi Hyde MCH (RBC) [Entitic mass] 23.6 pg Critically low 26.7-34.0 [facility] Comment on above: Performed By: #### T NS #### [facility] [address] [place] [address] Dr. Nishi Hyde MCHC (RBC) [Mass/Vol] 29.0 g/dL Critically low 29.9-35.2 [facility] Comment on above: Performed By: #### T NS #### [facility] [address] [place] [address] Dr. Nishi Hyde MCV (RBC) [Entitic vol] 81.3 fL Normal 81.0-99.0 [facility] Comment on above: Performed By: #### T NS #### [facility] [address] [place] [address] Dr. Nishi Hyde MONO # 0.4 103/ul Normal 0.3-0.8 [facility] Comment on above: Performed By: #### T NS #### [facility] [address] [place] [address] Dr. Nishi Hyde Monocytes/100 WBC (Bld) 4.5 % Normal 1.7-12.0 [facility] Comment on above: Performed By: #### T NS #### [facility] [address] [address] [address] Nishi Hyde NEUT # 5.6 103/ul Normal 1.4-6.5 [facility] Comment on above: Performed By: #### T NS #### [facility] [address] [address] [address] Nishi Hyde Neutrophils/100 WBC (Bld) 62.2 % Normal 43.0-75.0 [facility] Comment on above: Performed By: #### T NS #### [facility] [address] [address] [address] Nishi Hyde Platelet mean volume (Bld) [Entitic vol] 9.4 fL Critically low 9.5-13.5 [facility] Comment on above: Performed By: #### T NS #### [facility] [address] [place] [address] Dr. Nishi Hyde PLT 509 103/ul Critically high 150-450 [facility] Comment on above: Performed By: #### T NS #### [facility] [address] [address] [address] Nishi Hyde RBC 6.10 106/ul Critically high 4.20-5.40 [facility] Comment on above: Performed By: #### T NS #### [facility] [address] [address] [address] Nishi Hyde WBC 8.9 103/ul Normal 4.0-11.0 [facility] Comment on above: Performed By: #### T NS #### [facility] [address] [address] [address] Nishi Hyde FREE T3on 12-02-2022 FREE T3 3.39 pg/mlL Normal 2.18-3.98 [facility] Comment on above: Performed By: #### F T3, TSH, CMP ####[facility] [address] [address]Dr. Nishi Hyde FREE T4on 12-02-2022 Free T4 [Mass/Vol] 1.11 ng/dL Normal 0.76-1.46 [facility] Comment on above: Performed By: #### F T4, VITAD ####[facility] [address] [address]Dr. Nishi Hyde PROF 14(COMP METB)on 023 Albumin [Mass/Vol] 4.2 g/dL Normal 3.4-5.0 [facility] Comment on above: Performed By: #### F T3, TSH, CMP ####[facility] [facility] [address] [address]Dr. Nishi Hyde Albumin/Globulin [Mass ratio] 1.0 {ratio} Normal [facility] Comment on above: Performed By: #### F T3, TSH, CMP ####[facility] [address] [place], [place] [address]Dr. Nishi Hyde ALP [Catalytic activity/Vol] 73 U/L Normal 46-116 [facility] Comment on above: Performed By: #### F T3, TSH, CMP ####[facility] [address] [place], [place] [address]Dr. Nishi Hyde ALT [Catalytic activity/Vol] 30 U/L Normal 14-59 [facility] Comment on above: Performed By: #### F T3, TSH, CMP ####[facility] [address] [place], [place] [address]Dr. Nishi Hyde Anion gap [Moles/Vol] 13.6 mmol/L Normal [facility] Comment on above: Performed By: #### F T3, TSH, CMP ####[facility] [address] [address]Dr. Nishi Hyde AST [Catalytic activity/Vol] 21 U/L Normal 15-37 [facility] Comment on above: Performed By: #### F T3, TSH, CMP ####[facility] [address] [place], [place] [address]Dr. Nishi Hyde Bilirubin [Mass/Vol] 0.2 mg/dL Normal 0.2-1.0 [facility] Comment on above: Performed By: #### F T3, TSH, CMP ####[facility] [address] [place], [place] [address]Dr. Nishi Hyde Calcium [Mass/Vol] 9.1 mg/dL Normal 8.5-10.1 [facility] Comment on above: Performed By: #### F T3, TSH, CMP ####[facility] [address] [address]Dr. Nishi Hyde Chloride [Moles/Vol] 103 mmol/L Normal 98-107 [facility] Comment on above: Performed By: #### F T3, TSH, CMP ####[facility] [address] [address]Dr. Nishi Hyde CO2 [Moles/Vol] 28.2 mmol/L Normal 21.0-32.0 [facility] Comment on above: Performed By: #### F T3, TSH, CMP ####[facility] [address] [place], [place] [address]Dr. Nishi Hyde Creatinine [Mass/Vol] 0.63 mg/dL Normal 0.55-1.02 [facility] Comment on above: Performed By: #### F T3, TSH, CMP ####[facility] [address] [address]Dr. Nishi Hyde EGFR-AF ZIMBABWEAN >60 Normal >=60 [facility] Comment on above: Performed By: #### F T3, TSH, CMP ####[facility] [address] [place], [place] [address]Dr. Nishi Hyde EGFR-NON AF ZIMBABWEAN >60 Normal >=60 [facility] Comment on above: Performed By: #### F T3, TSH, CMP ####[facility] [address] [address]Dr. Nishi Hyde Globulin (S) [Mass/Vol] 4.2 g/dL Normal [facility] Comment on above: Performed By: #### F T3, TSH, CMP ####[facility] [address] [address]Dr. Nishi Hyde Glucose [Mass/Vol] 107 mg/dL Critically high 74-106 [facility] Comment on above: Performed By: #### F T3, TSH, CMP ####[facility] [address] [address]Dr. Nishi Hyde Potassium [Moles/Vol] 3.8 mmol/L Normal 3.5-5.1 [facility] Comment on above: Performed By: #### F T3, TSH, CMP ####[facility] [address] [address]Dr. Nishi Hyde Protein [Mass/Vol] 8.4 g/dL Critically high 6.4-8.2 T [facility] Comment on above: Performed By: #### F T3, TSH, CMP ####[facility] Iv[address] [place], [place] [address]Dr. Nishi Hyde Sodium [Moles/Vol] 141 mmol/L Normal 136-145 [facility] Comment on above: Performed By: #### F T3, TSH, CMP ####[facility] [address] [place], [place] [address]Dr. Nishi Barrett Urea nitrogen [Mass/Vol] 11.0 mg/dL Normal 7.0-18.0 [facility] Comment on above: Performed By: #### F T3, TSH, CMP ####[facility] [address] [place], [place] [address]Dr. Nishi Hyde Urea nitrogen/Creatinin e [Mass ratio] 17.5 mg/mg Normal [facility] Comment on above: Performed By: #### F T3, TSH, CMP ####[facility] [address] [place], [place] [address]Dr. Nishi Barrett TSHon 12-02-2022 TSH 1.942 uIU/mL Normal 0.358-3.740 [facility] Comment on above: Performed By: #### F T3, TSH, CMP ####[facility] Is[address] [place], [place] [address]Dr. Nishi Barrett VITAMIN D 25 OHon 12-02-2022 VIT D 25-OH 13.3 ng/mL Normal [facility] Comment on above: Performed By: #### F T4, VITAD ####[facility] [address] [place], [place] [address]Dr. Nishi Hyde VIT D RANGES SEE BELOW Normal [facility] Comment on above: Result Comment: <20 ng/mL Vit D deficient 20 - <30 ng/mL Vit D insufficient 30 - 100 ng/mL Vit D sufficient >100 ng/mL Potential Toxicity Performed By: #### F T4, VITAD ####[facility] [address] [address]Dr. Nishi Hyde Covid-19 PCR ([facility])on 10-08 SARS-CoV-2 (COVID-19) RNA SREE+probe Ql (Unsp spec) Not detected Normal NOT DETECTED [facility] Comment on above: Result Comment: When diagnostic testing is negative, the possibility of a false negative should be considered in the context of a patient's recent exposures and the presence of clinical signs and symptoms consistent with SARS-CoV-2. This test is not yet approved or cleared by the [place] FDA. When there are no FDA-approved or cleared tests available, and other criteria are met, FDA can make tests available under an emergency access mechanism called an Emergency Use Authorization (EUA). The EUA for this test is supported by the [place] of Health and Human Service's declaration that circumstances exist to justify the emergency use of in vitro diagnostics for the detection and/or diagnosis of the virus that causes COVID-19. This EUA will remain in effect for the duration of the COVID-19 declaration justifying emergency of IVDs, unless it is terminated or revoked by the FDA (after which the test may no longer be used). Performed By: #### U RCX #### [facility] [address] [address] [address] Nishi Hyde CBC AUTO DIFFon 07-16-2022 BASO # 0.1 103/ul Normal 0.0-0.1 [facility] Comment on above: Performed By: #### T NS #### [facility] [address] [address] [address] Nishi Hyde Basophils/100 WBC (Bld) 0.7 % Normal 0.2-2.0 [facility] Comment on above: Performed By: #### T NS #### [facility] [address] [address] [address] Nishi Hyde EO # 0.1 103/ul Normal 0.0-0.7 [facility] Comment on above: Performed By: #### T NS #### [facility] [address] [place] [address] Dr. Nishi Hyde Eosinophils/100 WBC (Bld) 1.4 % Normal 0.9-7.0 [facility] Comment on above: Performed By: #### T NS #### [facility] [address] [place] [address] Dr. Nishi Hyde Erythrocyte distribution width (RBC) [Ratio] 17.2 % Critically high 11.0-15.0 [facility] Comment on above: Performed By: #### T NS #### [facility] [address] [place] [address] Dr. Nishi Hyde Hematocrit (Bld) [Volume fraction] 39.6 % Normal 36.0-48.0 [facility] Comment on above: Performed By: #### T NS #### [facility] [address] [place] [address] Dr. Nishi Hyde Hemoglobin (Bld) [Mass/Vol] 12.5 g/dL Normal 12.0-16.0 [facility] Comment on above: Performed By: #### T NS #### [facility] [address] [place] [address] Dr. Nishi Hyde IG # 0.02 10e3/ul Normal 0.00-0.03 [facility] Comment on above: Performed By: #### T NS #### [facility] [address] [place] [address] Dr. Nishi Hyde IG % 0.2 % Normal 0.0-0.5 [facility] Comment on above: Performed By: #### T NS #### [facility] [address] [place] [address] Dr. Nishi Hyde LYMPH # 2.7 103/ul Normal 1.2-3.8 [facility] Comment on above: Performed By: #### T NS #### [facility] [address] [place] [address] Dr. Nishi Hyde Lymphocytes/100 WBC (Bld) 29.3 % Normal 20.5-60.0 [facility] Comment on above: Performed By: #### T NS #### [facility] [address] [place] [address] Dr. Nishi Hyde MANUAL DIFF REQ NO Normal [facility] Comment on above: Performed By: #### T NS #### [facility] [address] [place] [address] Dr. Nishi Hyde MCH (RBC) [Entitic mass] 22.5 pg Critically low 26.7-34.0 [facility] Comment on above: Performed By: #### T NS #### [facility] [address] [place] [address] Dr. Nishi Hyde MCHC (RBC) [Mass/Vol] 31.6 g/dL Normal 29.9-35.2 [facility] Comment on above: Performed By: #### T NS #### [facility] [address] [place] [address] Dr. Nishi Hyde MCV (RBC) [Entitic vol] 71.2 fL Critically low 81.0-99.0 [facility] Comment on above: Performed By: #### T NS #### [facility] [address] [place] [address] Dr. Nishi Hyde MONO # 0.6 103/ul Normal 0.3-0.8 [facility] Comment on above: Performed By: #### T NS #### [facility] [address] [place] [address] Dr. Nishi Hyde Monocytes/100 WBC (Bld) 6.5 % Normal 1.7-12.0 [facility] Comment on above: Performed By: #### T NS #### [facility] [address] [place] [address] Dr. Nishi Hyde NEUT # 5.7 103/ul Normal 1.4-6.5 [facility] Comment on above: Performed By: #### T NS #### [facility] [address] [place] [address] Dr. Nishi Hyde Neutrophils/100 WBC (Bld) 61.9 % Normal 43.0-75.0 [facility] Comment on above: Performed By: #### T NS #### [facility] [address] [address] [address] Nishi Hyde Platelet mean volume (Bld) [Entitic vol] 8.9 fL Critically low 9.5-13.5 [facility] Comment on above: Performed By: #### T NS #### [facility] [address] [address] [address] Nishi Hyde PLT 413 103/ul Normal 150-450 [facility] Comment on above: Performed By: #### T NS #### [facility] [address] [address] [address] Nishi Hyde RBC 5.56 106/ul Critically high 4.20-5.40 [facility] Comment on above: Performed By: #### T NS #### [facility] [address] [address] [address] Nishi Hyde WBC 9.2 103/ul Normal 4.0-11.0 [facility] Comment on above: Performed By: #### T NS #### [facility] [address] [address] [address] Nishi Hyde PREG QUANT HCGon 07-16-2022 HCG QUANT <1 Normal [facility] Comment on above: Performed By: #### P REGQNT ####[facility] [address] [address]Dr. Nishi Hyde HCG RANGE SEE BELOW Normal [facility] Comment on above: Result Comment: 5-50 0.2-1 WEEK 50-500 1-2 WEEKS 100-5,000 2-3 WEEKS 500-10,000 3-4 WEEKS 1,000-50,000 4-5 WEEKS 10,000-100,000 5-6 WEEKS 15,000-200,000 6-8 WEEKS 10,000-100,000 2-3 MONTHS Performed By: #### P REGQNT ####[facility] [address] [address]Dr. Nishi Hyde QUANTIFERON TB GOLD PLUSon 0 06-19-2022 QuantiFERON Criteria Comment Normal [facility] Comment on above: Result Comment: Miguel tiFERON-TB Gold Plus is a qualitative indirect test for M tuberculosis infection (including disease) and is intended for use in conjunction with risk assessment, radiography, and other medical and diagnostic evaluations. The QuantiFERON-TB Gold Plus result is determined by subtracting the Nil value from either TB antigen (Ag) value. The Mitogen tube serves as a control for the test. Performed By: #### Q NTTB ####[facility] [address] [place], [place] [address]Dr. Nishi Hyde QuantiFERON Incubation Incubation performed. Normal [facility] Comment on above: Performed By: #### Q NTTB ####[facility] [address] [place], [place] [address]Dr. Nishi Hyde QuantiFERON Mitogen Value >10.00 Normal [facility] Comment on above: Performed By: #### Q NTTB ####[facility] [address] [place], [place] [address]Dr. Nishi Hyde QuantiFERON Nil Value 0.04 IU/mL Normal [facility] Comment on above: Performed By: #### Q NTTB ####[facility] [address] [place], [place] [address]Dr. Nishi [facility] QuantiFERON TB1 Ag Value 0.03 IU/mL Normal [facility] Comment on above: Performed By: #### Q NTTB ####[facility] [address] [place], [place] [address]Dr. Nishi [facility] QuantiFERON TB2 Ag Value 0.02 IU/mL Normal [facility] Comment on above: Performed By: #### Q NTTB ####[facility] [address] [place], [place] [address]Dr. Nishi Hyde QuantiFERON-TB Gold Plus Negative Normal Negative [facility] Comment on above: Result Comment: No r esponse to M tuberculosis antigens detected. Infection with M tuberculosis is unlikely, but high risk individuals should be considered for additional testing (ATS/IDSA/CDC Clinical Practice Guidelines, 2017). The reference range is an Antigen minus Nil result of <0.35 IU/mL. Chemiluminescence immunoassay methodology Performed By: #### Q NTTB ####[facility] [address] [place], [place] [address]Dr. Nishi Hyde HEPATITIS B SURFACE ANTIBODY , QUANTon 06-18-2022 Hepatitis B Surf AB Quant <3.1 Critically low Immunity>9.9 [facility] Comment on above: Result Comment: Stat us of Immunity Anti-HBs Level Inconsistent with Immunity 0.0 - 9.9 Consistent with Immunity >9.9 Performed By: #### T NS #### [facility] [address] [address] [address] Nishi Hyde MMR IMMUNITYon 06-18-2022 Mumps Abs, IgG 33.1 AU/mL Normal Immune >10.9 [facility] Comment on above: Result Comment: Nega tive <9.0 Equivocal 9.0 - 10.9 Positive >10.9 A positive result generally indicates past exposure to Mumps virus or previous vaccination. Performed By: #### U RCX #### [facility] [address] [address] [address] Nishi Hyde Rubella Antibodies, IgG 1.16 index Normal Immune >0.99 [facility] Comment on above: Result Comment: Non- immune <0.90 Equivocal 0.90 - 0.99 Immune >0.99 Performed By: #### U RCX #### [facility] [address] [address] [address] Nishi Hyde Rubeola Ab, IgG <13.5 Critically low Immune >16.4 [facility] Comment on above: Result Comment: Nega tive <13.5 Equivocal 13.5 - 16.4 Positive >16.4 Presence of antibodies to Rubeola is presumptive evidence of immunity except when acute infection is suspected. Performed By: #### U RCX #### [facility] [address] [address] [address] Nishi Hyde VARICELLA IGG ABon Varicella Zoster IgG 2994 index Normal Immune >165 [facility] Comment on above: Result Comment: Nega tive <135 Equivocal 135 - 165 Positive >165 A positive result generally indicates exposure to the pathogen or administration of specific immunoglobulins, but it is not indication of active infection or stage of disease. Performed By: #### V ARCEL ####[facility] [address] [place], [place] [address]Dr. Nishi Hyde ANTIBODY ID PANELon 05-22-20 22 ANTIBODY ID PANEL Antibody ID Anti-D Blood Bank Notes (RhIG given on 03/15/2022) Normal [facility] Comment on above: Performed By: #### A BID #### [facility] [address] [place], [place] [address] Dr. Nishi Hyde CULTURE URINEon 05-21-2022 CULTURE URINE Isolate 1 Acinetobacter baumannii 40,000 cfu/mL of Isolate 2 Staphylococcus haemolyticus 100,000 cfu/mL of ORGANISM 1 Acinetobacter baumannii ANTIBIOTIC M.I.C RX STATUS Ampicillin/Sulbactam <=2 S F Piperacillin/Tazobac ramirez 8 S F Ceftazidime 4 S F Ceftriaxone 16 I F Imipenem <=0.25 S F Gentamicin <=1 S F Tobramycin <=1 S F Ciprofloxacin <=0.25 S F Levofloxacin <=0.12 S F Trimethoprim/Sulfame thoxazole <=20 S F ORGANISM 2 Staphylococcus haemolyticus ANTIBIOTIC M.I.C RX STATUS Beta-Lactamase Pos POS F Cefoxitin Screen Pos POS F Benzylpenicillin >=0.5 R F Gentamicin <=0.5 S F Ciprofloxacin <=0.5 S F Levofloxacin <=0.12 S F Moxifloxacin <=0.25 S F Inducible Clindamycin Resistance Pos POS F Quinupristin/Dalfopr istin <=0.25 S F Linezolid 2 S F Vancomycin 1 S F Tetracycline >=16 R F Nitrofurantoin <=16 S F Rifampicin <=0.5 S F Trimethoprim/Sulfame thoxazole <=10 S F Oxacillin <=0.25 R F Normal [facility] Comment on above: Performed By: #### U RCX #### [facility] [address] [place], [place] [address] Dr. Nishi Hyde CBC AUTO DIFFon 05-19-2022 BASO # 0.1 103/ul Normal 0.0-0.1 [facility] Comment on above: Performed By: #### U RCX #### [facility] [address] [address] [address] Nishi Hyde Basophils/100 WBC (Bld) 0.3 % Normal 0.2-2.0 [facility] Comment on above: Performed By: #### U RCX #### [facility] [address] [place] [address] Dr. Nishi Hyde EO # 0.0 103/ul Normal 0.0-0.7 [facility] Comment on above: Performed By: #### U RCX #### [facility] [address] [place] [address] Dr. Nishi Hyde Eosinophils/100 WBC (Bld) 0.3 % Critically low 0.9-7.0 [facility] Comment on above: Performed By: #### U RCX #### [facility] [address] [place] [address] Dr. Nishi Hyde Erythrocyte distribution width (RBC) [Ratio] 15.1 % Critically high 11.0-15.0 [facility] Comment on above: Performed By: #### U RCX #### [facility] [address] [place] [address] Dr. Nishi Hyde Hematocrit (Bld) [Volume fraction] 33.0 % Critically low 36.0-48.0 [facility] Comment on above: Performed By: #### U RCX #### [facility] [address] [place] [address] Dr. Nishi Hyde Hemoglobin (Bld) [Mass/Vol] 10.5 g/dL Critically low 12.0-16.0 [facility] Comment on above: Performed By: #### U RCX #### [facility] [address] [place] [address] Dr. Nishi Hyde IG # 0.09 10e3/ul Critically high 0.00-0.03 [facility] Comment on above: Performed By: #### U RCX #### [facility] [address] [place] [address] Dr. Nishi Hyde IG % 0.6 % Critically high 0.0-0.5 [facility] Comment on above: Performed By: #### U RCX #### [facility] [address] [place] [address] Dr. Nishi Hyde LYMPH # 2.2 103/ul Normal 1.2-3.8 [facility] Comment on above: Performed By: #### U RCX #### [facility] [address] [address] [address] Nishi Hyde Lymphocytes/100 WBC (Bld) 14.9 % Critically low 20.5-60.0 [facility] Comment on above: Performed By: #### U RCX #### [facility] [address] [place] [address] Dr. Nishi Hyde MANUAL DIFF REQ NO Normal [facility] Comment on above: Performed By: #### U RCX #### [facility] [address] [place] [address] Dr. Nishi Hyde MCH (RBC) [Entitic mass] 22.2 pg Critically low 26.7-34.0 [facility] Comment on above: Performed By: #### U RCX #### [facility] [address] [place] [address] Dr. Nishi Hyde MCHC (RBC) [Mass/Vol] 31.8 g/dL Normal 29.9-35.2 [facility] Comment on above: Performed By: #### U RCX #### [facility] [address] [place] [address] Dr. Nishi Hyde MCV (RBC) [Entitic vol] 69.9 fL Critically low 81.0-99.0 [facility] Comment on above: Performed By: #### U RCX #### [facility] [address] [place] [address] Dr. Nishi Hyde MONO # 0.8 103/ul Normal 0.3-0.8 [facility] Comment on above: Performed By: #### U RCX #### [facility] [address] [address] [address] Nishi Hyde Monocytes/100 WBC (Bld) 5.2 % Normal 1.7-12.0 [facility] Comment on above: Performed By: #### U RCX #### [facility] [address] [place] [address] Dr. Nishi Hyde NEUT # 11.6 103/ul Critically high 1.4-6.5 [facility] Comment on above: Performed By: #### U RCX #### [facility] [address] [place] [address] Dr. Nishi Hyde Neutrophils/100 WBC (Bld) 78.7 % Critically high 43.0-75.0 [facility] Comment on above: Performed By: #### U RCX #### [facility] [address] [place] [address] Dr. Nishi Hyde Platelet mean volume (Bld) [Entitic vol] 10.1 fL Normal 9.5-13.5 [facility] Comment on above: Performed By: #### U RCX #### [facility] [address] [place] [address] Dr. Nishi Hyde PLT 257 103/ul Normal 150-450 [facility] Comment on above: Performed By: #### U RCX #### [facility] [address] [place] [address] Dr. Nishi Hyde RBC 4.72 106/ul Normal 4.20-5.40 [facility] Comment on above: Performed By: #### U RCX #### [facility] [address] [place] [address] Dr. Nishi Hyde WBC 14.7 103/ul Critically high 4.0-11.0 [facility] Comment on above: Performed By: #### U RCX #### [facility] [address] [place] [address] Dr. Nishi Hyde SCREENon 05-19-2022 SCREEN Negative Normal [facility] Comment on above: Performed By: #### F ETSCRN #### [facility] [address] [place] [address] Dr. Nishi Hyde CBC AUTO DIFFon 05-18-2022 BASO # 0.0 103/ul Normal 0.0-0.1 [facility] Comment on above: Performed By: #### C BC ####[facility] [address] [place], [place] [address]Dr. Jenniferamauri Hyde Basophils/100 WBC (Bld) 0.4 % Normal 0.2-2.0 [facility] Comment on above: Result Comment: Prev iously reported as: 0.1 On 05/17/2022 22:27 By [facility] Performed By: #### C BC ####[facility] [address] [place], [place] [address]Dr. Nishi Hyde EO # 0.1 103/ul Normal 0.0-0.7 [facility] Comment on above: Result Comment: Prev iously reported as: 0.0 On 05/17/2022 22:27 By [facility] Performed By: #### C BC ####[facility] [address] [place], [place] [address]Dr. Nishi Hyde Eosinophils/100 WBC (Bld) 1.0 % Normal 0.9-7.0 [facility] Comment on above: Result Comment: Prev iously reported as: 0.1 On 05/17/2022 22:27 By [facility] Performed By: #### C BC ####[facility] [address] [place], [place] [address]Dr. Nishi Hyde Erythrocyte distribution width (RBC) [Ratio] 15.1 % Critically high 11.0-15.0 [facility] Comment on above: Result Comment: Prev iously reported as: 12.8 On 05/17/2022 22:27 By [facility] Performed By: #### C BC ####[facility] [address] [place], [place] [address]Dr. Nishi Hyde Hematocrit (Bld) [Volume fraction] 36.0 % Normal 36.0-48.0 [facility] Comment on above: Result Comment: Prev iously reported as: 46.5 On 05/17/2022 22:27 By [facility] Performed By: #### C BC ####[facility] [address] [place], [place] [address]Dr. Nishi Hyde Hemoglobin (Bld) [Mass/Vol] 11.2 g/dL Critically low 12.0-16.0 [facility] Comment on above: Result Comment: Prev iously reported as: 16.6 On 05/17/2022 22:27 By [facility] Performed By: #### C BC ####[facility] [address] [address]Dr. Nishi Hyde IG # 0.10 10e3/ul Critically high 0.00-0.03 [facility] Comment on above: Result Comment: Prev iously reported as: 0.04 On 05/17/2022 22:27 By [facility] Performed By: #### C BC ####[facility] [address] [place], [place] [address]Dr. Nishi Hyde IG % 1.0 % Critically high 0.0-0.5 [facility] Comment on above: Result Comment: Prev iously reported as: 0.4 On 05/17/2022 22:27 By [facility] Performed By: #### C BC ####[facility] [address] [place], [place] [address]Dr. Nishi Hyde LYMPH # 2.4 103/ul Normal 1.2-3.8 [facility] Comment on above: Result Comment: Prev iously reported as: 0.8 On 05/17/2022 22:27 By [facility] Performed By: #### C BC ####[facility] [address] [place], [place] [address]Dr. Nishi Hyde Lymphocytes/100 WBC (Bld) 23.0 % Normal 20.5-60.0 [facility] Comment on above: Result Comment: Prev iously reported as: 8.0 On 05/17/2022 22:27 By [facility] Performed By: #### C BC ####[facility] [address] [place], [place] [address]Dr. Nishi Hyde MANUAL DIFF REQ NO Normal [facility] Comment on above: Performed By: #### C BC ####[facility] [address] [place], [place] [address]DrAnnika Hyde MCH (RBC) [Entitic mass] 21.7 pg Critically low 26.7-34.0 [facility] Comment on above: Result Comment: Prev iously reported as: 30.5 On 05/17/2022 22:27 By [facility] Performed By: #### C BC ####[facility] [address] [address]Dr. Nishi Hyde MCHC (RBC) [Mass/Vol] 31.1 g/dL Normal 29.9-35.2 [facility] Comment on above: Result Comment: Prev iously reported as: 35.7 On 05/17/2022 22:27 By [facility] Performed By: #### C BC ####[facility] [address] [place], [place] [address]Dr. Nishi Hyde MCV (RBC) [Entitic vol] 69.9 fL Critically low 81.0-99.0 [facility] Comment on above: Result Comment: Prev iously reported as: 85.5 On 05/17/2022 22:27 By [facility] Performed By: #### C BC ####[facility] [address] [place], [place] [address]Dr. Nishi Hyde MONO # 0.6 103/ul Normal 0.3-0.8 [facility] Comment on above: Result Comment: Prev iously reported as: 0.9 On 05/17/2022 22:27 By [facility] Performed By: #### C BC ####[facility] [address] [place], [place] [address]Dr. Nishi Hyde Monocytes/100 WBC (Bld) 6.1 % Normal 1.7-12.0 [facility] Comment on above: Result Comment: Prev iously reported as: 8.6 On 05/17/2022 22:27 By [facility] Performed By: #### C BC ####[facility] [address] [place], [place] [address]Dr. Nishi Hyde NEUT # 7.1 103/ul Critically high 1.4-6.5 [facility] Comment on above: Result Comment: Prev iously reported as: 8.1 On 05/17/2022 22:27 By [facility] Performed By: #### C BC ####[facility] [address] [place], [place] [address]Dr. Nishi Hyde Neutrophils/100 WBC (Bld) 68.5 % Normal 43.0-75.0 [facility] Comment on above: Result Comment: Prev iously reported as: 82.8 On 05/17/2022 22:27 By [facility] Performed By: #### C BC ####[facility] [address] [place], [place] [address]Dr. Nishi Hyde Platelet mean volume (Bld) [Entitic vol] 10.3 fL Normal 9.5-13.5 [facility] Comment on above: Result Comment: Prev iously reported as: 10.0 On 05/17/2022 22:27 By [facility] Performed By: #### C BC ####[facility] [address] [place], [place] [address]Dr. Nishi Hyde PLT 265 103/ul Normal 150-450 [facility] Comment on above: Result Comment: Prev iously reported as: 190 On 05/17/2022 22:27 By [facility] Performed By: #### C BC ####[facility] [address] [place], [place] [address]Dr. Nishi Hyde RBC 5.15 106/ul Normal 4.20-5.40 [facility] Comment on above: Result Comment: Prev iously reported as: 5.44 On 05/17/2022 22:27 By [facility] Performed By: #### C BC ####[facility] [address] [place], [place] [address]Dr. Nishi Hyde WBC 10.3 103/ul Normal 4.0-11.0 [facility] Comment on above: Result Comment: Prev iously reported as: 9.8 On 05/17/2022 22:27 By [facility] Performed By: #### C BC ####[facility] [address] [place], [place] [address]Dr. Nishi Hyde [facility]07 SARS-CoV-2 (COVID-19) RNA SREE+probe Ql (Unsp spec) Not detected Normal NOT DETECTED [facility] Comment on above: Result Comment: When diagnostic testing is negative, the possibility of a false negative should be considered in the context of a patient's recent exposures and the presence of clinical signs and symptoms consistent with SARS-CoV-2. This test is not yet approved or cleared by the [place] FDA. When there are no FDA-approved or cleared tests available, and other criteria are met, FDA can make tests available under an emergency access mechanism called an Emergency Use Authorization (EUA). The EUA for this test is supported by the Docking [employer] Operator of Health and Human Service's declaration that circumstances exist to justify the emergency use of in vitro diagnostics for the detection and/or diagnosis of the virus that causes COVID-19. This EUA will remain in effect for the duration of the COVID-19 declaration justifying emergency of IVDs, unless it is terminated or revoked by the FDA (after which the test may no longer be used). Performed By: #### T NS #### [facility] [address] [place] [address] Dr. Nishi Hyde DIRECT COOMBSon 05-18-2022 DIRECT DEVI Negative Normal [facility] Comment on above: Performed By: #### D IRCMB ####[facility] [address] [address]Dr. Nishi Hyde DRUG SCREEN RAPID (URINE)on 05-18-2022 AMP Negative Normal NEGATIVE [facility] Comment on above: Performed By: #### T NS #### [facility] [address] [address] [address] Nishi Hyde BAR Negative Normal NEGATIVE [facility] Comment on above: Performed By: #### T NS #### [facility] [address] [address] [address] Nishi Hyde BUP Negative Normal NEGATIVE [facility] Comment on above: Performed By: #### T NS #### [facility] [address] [place] [address] Dr. Nishi Hyde BZO Negative Normal NEGATIVE [facility] Comment on above: Performed By: #### T NS #### [facility] [address] [address] [address] Nishi Hyde DENIS Negative Normal NEGATIVE [facility] Comment on above: Performed By: #### T NS #### [facility] [address] [place] [address] Dr. Nishi Hyde CUT-OFFS SEE BELOW Normal [facility] Comment on above: Result Comment: AMP (Amphetamine): 500ng/mL, BAR (Barbituates): 200 ng/mL, BZO (Benzodiazepines): 150 ng/mL, BUP (Buprenorphine): 10 ng/mL, DENIS (Cocaine): 150 ng/mL, mAMP (Methamphetamine): 500 ng/mL, MTD (Methadone): 200 ng/mL, OPI (Opiates): 100 ng/mL, OXY (Oxycodone): 100 ng/mL, PCP (Phencyclidine): 25 ng/mL, PPX (Propoxyphene): 300 ng/mL, THC (Cannabinoids): 50 ng/mL, TCA (Trycyclic Antidepressants): 300 ng/mL Performed By: #### T NS #### [facility] [address] [place] [address] Dr. Nishi Hyde DRUG CUT HEADER DRUG CLASS TEST SYSTEM CUT-OFF CONCENTRATIONS ARE FOLLOWS: Normal [facility] Comment on above: Performed By: #### T NS #### [facility] [address] [place] [address] Dr. Nishi Hyde mAMP Negative Normal NEGATIVE [facility] Comment on above: Performed By: #### T NS #### [facility] [address] [place] [address] Dr. Nishi Hyde MTD Negative Normal NEGATIVE [facility] Comment on above: Performed By: #### T NS #### [facility] [address] [place] [address] Dr. Nishi Hyde OPI Negative Normal NEGATIVE [facility] Comment on above: Performed By: #### T NS #### [facility] [address] [place] [address] Dr. Nishi Hyde OXY Negative Normal NEGATIVE [facility] Comment on above: Performed By: #### T NS #### [facility] [address] [place] [address] Dr. Nishi Hyde PCP Negative Normal NEGATIVE [facility] Comment on above: Performed By: #### T NS #### [facility] [address] [place] [address] Dr. Nishi Hyde PPX Negative Normal NEGATIVE [facility] Comment on above: Performed By: #### T NS #### [facility] [address] [place] [address] Dr. Nishi Hyde TCA Negative Normal NEGATIVE [facility] Comment on above: Performed By: #### T NS #### [facility] [address] [place] [address] Dr. Nishi Hyde THC Negative Normal NEGATIVE [facility] Comment on above: Performed By: #### T NS #### [facility] [address] [place] [address] Dr. Nishi Hyde LDHon 05-18-2022 LDH 154 U/L Normal 81-234 [facility] Comment on above: Performed By: #### U RCX #### [facility] [address] [place] [address] Dr. Nishi Hyde LIVER PROFILEon 05-18-2022 BILI, CONJUGATED 0.0 mg/dL Normal 0.0-0.2 [facility] Comment on above: Performed By: #### T NS #### [facility] [address] [place] [address] Dr. Nishi Hyde PROF 14(COMP METB)on 022 Albumin [Mass/Vol] 2.7 g/dL Critically low 3.4-5.[address] [facility] Comment on above: Performed By: #### U RCX #### [facility] [address] [place] [address] Dr. Nishi Hyde Performed By: #### T NS #### [facility] [address] [place] [address] Dr. Nishi Hyde Albumin/Globulin [Mass ratio] 0.6 {ratio} Normal [facility] Comment on above: Performed By: #### U RCX #### [facility] [address] [place] [address] Dr. Nishi Hyde Performed By: #### T NS #### [facility] [address] [place] [address] Dr. Nishi Hyde ALP [Catalytic activity/Vol] 103 U/L Normal 46-116 [facility] Comment on above: Performed By: #### U RCX #### [facility] [address] [place] [address] Dr. Nishi Hyde Performed By: #### T NS #### [facility] [address] [place] [address] Dr. Nishi Hyde ALT [Catalytic activity/Vol] 14 U/L Normal 14-59 [facility] Comment on above: Performed By: #### U RCX #### [facility] [address] [place] [address] Dr. Nishi Hyde Performed By: #### T NS #### [facility] [address] [place] [address] Dr. Nishi Hyde Anion gap [Moles/Vol] 14.4 mmol/L Normal [facility] Comment on above: Performed By: #### U RCX #### [facility] [address] [place] [address] Dr. Nishi Hyde AST [Catalytic activity/Vol] 10 U/L Critically low 15-37 [facility] Comment on above: Performed By: #### U RCX #### [facility] [address] [place] [address] Dr. Nishi Hyde Performed By: #### T NS #### [facility] [address] [place] [address] Dr. Nishi Hyde Bilirubin [Mass/Vol] 0.2 mg/dL Normal 0.2-1.0 [facility] Comment on above: Performed By: #### U RCX #### [facility] [address] [place] [address] Dr. Nishi Hyde Performed By: #### T NS #### [facility] [address] [place] [address] Dr. Nishi Hyde Calcium [Mass/Vol] 8.8 mg/dL Normal 8.5-10.1 [facility] Comment on above: Performed By: #### U RCX #### [facility] [address] [address] [address] Nishi Hyde Chloride [Moles/Vol] 105 mmol/L Normal 98-107 [facility] Comment on above: Performed By: #### U RCX #### [facility] [address] [address] [address] Nishi Hyde CO2 [Moles/Vol] 21.5 mmol/L Normal 21.0-32.0 [facility] Comment on above: Performed By: #### U RCX #### [facility] [address] [address] [address] Nishi Hyde Creatinine [Mass/Vol] 0.51 mg/dL Critically low 0.55-1.02 [facility] Comment on above: Performed By: #### U RCX #### [facility] [address] [place] [address] Dr. Nishi Hyde EGFR-AF ZIMBABWEAN >60 Normal >=60 [facility] Comment on above: Performed By: #### U RCX #### [facility] [address] [address] [address] Nishi Hyde EGFR-NON AF ZIMBABWEAN >60 Normal >=60 [facility] Comment on above: Performed By: #### U RCX #### [facility] [address] [address] [address] Nishi Hyde Globulin (S) [Mass/Vol] 4.3 g/dL Normal [facility] Comment on above: Performed By: #### U RCX #### [facility] [address] [address] [address] Nishi Hyde Performed By: #### T NS #### [facility] [address] [address] [address] Nishi Hyde Glucose [Mass/Vol] 99 mg/dL Normal 74-106 [facility] Comment on above: Performed By: #### U RCX #### [facility] [address] [address] [address] Nishi Hyde Potassium [Moles/Vol] 3.9 mmol/L Normal 3.5-5.1 [facility] Comment on above: Performed By: #### U RCX #### [facility] [address] [address] [address] Nishi Hyde Protein [Mass/Vol] 7.0 g/dL Normal 6.4-8.2 [facility] Comment on above: Performed By: #### U RCX #### [facility] [address] [address] [address] Nishi Hyde Performed By: #### T NS #### [facility] [address] [address] [address] Nishi Hyde Sodium [Moles/Vol] 137 mmol/L Normal 136-145 [facility] Comment on above: Performed By: #### U RCX #### [facility] [address] [address] [address] Nishi Hyde Urea nitrogen [Mass/Vol] 8.0 mg/dL Normal 7.0-18.0 [facility] Comment on above: Performed By: #### U RCX #### [facility] [address] [address] [address] Nishi Hyde Urea nitrogen/Creatinin e [Mass ratio] 15.7 mg/mg Normal [facility] Comment on above: Performed By: #### U RCX #### [facility] [address] [address] [address] Nishi Hyde PROTIMEon 05-18-2022 INR Coag (PPP) [Relative time] 0.95 {INR} Normal [facility] Comment on above: Performed By: #### P T, PTT ####[facility] [address] [address]Dr. Nishi Hyde INR GUIDELINES SEE BELOW Normal [facility] Comment on above: Result Comment: REKHA RED INR: 2.0 - 3.0 CONDITIONS NOT LISTED BELOW 2.5 - 3.5 FOR PROSTHETIC HEART VALVE REPLACEMENT 2.5 - 3.5 RECURRENT THROMBOSIS Performed By: #### P T, PTT ####[facility] [address] [address]Dr. Nishi Hyde PT Coag (PPP) [Time] 10.3 s Normal 9.0-11.6 [facility] Comment on above: Performed By: #### P T, PTT ####[facility] [address] [address]Dr. Nishi Hyde PTTon 05-18-2022 aPTT Coag (Bld) [Time] 28.3 s Normal 22.3-36.2 [facility] Comment on above: Performed By: #### P T, PTT ####[facility] [address] [address]DrAnnika Hyde TYPE AND SCREENon 05-18-2022 TYPE AND SCREEN Negative Normal [facility] Comment on above: Performed By: #### T NS #### [facility] [address] [place] [address] Dr. Nishi Hyde UA (CLEAN/CATCH) MICROSCOPIC IF INDICATEon 05-18-2022 Bilirubin Ql (U) Negative Normal NEGATIVE [facility] Comment on above: Performed By: #### U RCX #### [facility] [address] [place] [address] Dr. Nishi Hyde Clarity (U) SL CLOUDY Abnormal CLEAR [facility] Comment on above: Performed By: #### U RCX #### [facility] [address] [place] [address] Dr. Nishi Hyde Color (U) LT. YELLOW Normal YELLOW [facility] Comment on above: Performed By: #### U RCX #### [facility] [address] [place] [address] Dr. Nishi Hyde Glucose Ql (U) Negative Normal NEGATIVE [facility] Comment on above: Performed By: #### U RCX #### [facility] [address] [place] [address] Dr. Nishi Hyde Hemoglobin Ql (U) Negative Normal NEGATIVE [facility] Comment on above: Performed By: #### U RCX #### [facility] [address] [place] [address] Dr. Nishi Hyde Ketones Ql (U) Negative Normal NEGATIVE [facility] Comment on above: Performed By: #### U RCX #### [facility] [address] [place] [address] Dr. Nishi Hyde LEUKOCYTES SMALL Abnormal NEGATIVE [facility] Comment on above: Performed By: #### U RCX #### [facility] [address] [place] [address] Dr. Nishi Hyde Nitrite Ql (U) Negative Normal NEGATIVE [facility] Comment on above: Performed By: #### U RCX #### [facility] [address] [place] [address] Dr. Nishi Hyde pH (U) 6.5 [pH] Normal 5-9 [facility] Comment on above: Performed By: #### U RCX #### [facility] [address] [place] [address] Dr. Nishi Hyde SPEC GRAVITY <=1.005 Abnormal 1.005-<=1.025 [facility] Comment on above: Performed By: #### U RCX #### [facility] [address] [place] [address] Dr. Nishi Hyde UA PROTEIN Negative Normal NEGATIVE/ TRACE [facility] Comment on above: Performed By: #### U RCX #### [facility] [address] [place] [address] Dr. Nishi Hyde UR MICRO IND INDICATED Normal [facility] Comment on above: Performed By: #### U RCX #### [facility] [address] [place] [address] Dr. Nishi Hyde Urobilinogen Qn (U) 0.2 {Nadia'U}/dL Normal 0.2 - 1.0 [facility] Comment on above: Performed By: #### U RCX #### [facility] [address] [place] [address] Dr. Nishi Hyde URIC ACID SERUMon 05-18-2022 Urate [Mass/Vol] 4.9 mg/dL Normal 2.6-6.0 [facility] Comment on above: Performed By: #### U RCX #### [facility] [address] [place] [address] Dr. Nishi Hyde URINE MICROSCOPIC ONLYon BACTERIA TRACE Abnormal NONE SEEN [facility] Comment on above: Performed By: #### U RCX #### [facility] [address] [place] [address] Dr. Nishi Hyde Bacteria identified Cx Nom (U) INDICATED Normal [facility] Comment on above: Performed By: #### U RCX #### [facility] [address] [place] [address] Dr. Nihsi Hyde CAST NONE SEEN Normal NONE SEEN [facility] Comment on above: Performed By: #### U RCX #### [facility] [address] [place] [address] Dr. Nishi Hyde Crystals LM Nom (Urine sed) NONE SEEN Normal NONE SEEN [facility] Comment on above: Performed By: #### U RCX #### [facility] [address] [place] [address] Dr. Nishi Hyde Epithelial cells LM Ql (Urine sed) MODERATE Abnormal NONE SEEN /RARE [facility] Comment on above: Performed By: #### U RCX #### [facility] Laboratory [address] [place] [address] Dr. Nishi Hyde MUCOUS NONE SEEN Normal NONE SEEN [facility] Comment on above: Performed By: #### U RCX #### [facility] Laboratory [address] [place] [address] Dr. Nishi Hyde RBC NONE SEEN Abnormal 0-2 [facility] Comment on above: Performed By: #### U RCX #### [facility] Laboratory [address] [place] [address] Dr. Nishi Hyde WBC 0-2 Abnormal NONE SEEN [facility] Comment on above: Performed By: #### U RCX #### [facility] Laboratory [address] [place] [address] Dr. Nishi Hyde US PREG BIOPHY W NON STRESSo n 05-18-2022 US PREG BIOPHY W NON STRESS EXAMINATION: US PREG BIOPHY W NON STRESS HISTORY: Excessive growth 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 COMPARISON: No relevant comparison available. TECHNIQUE: Ultrasound biophysical profile was performed in the radiology department. FINDINGS: BREATHING MOVEMENTS: 2.0 GROSS BODY MOVEMENTS: 2.0 TONE: 2.0 QUALITATIVE AMNIOTIC FLUID VOLUME: 2.0 PRESENTATION: CEPHALIC HEART RATE: 139.2 bpm H.B./min AMNIOTIC FLUID VOLUME: 23.3 cm cm GESTATIONAL AGE: 37 weeks 4 days CONCLUSION: Total biophysical profile score: 8.0 Electronically authenticated by: BUSTER YU Date: 2022-05-18 16:05 Normal [facility] US PREG BIOPHY W NON STRESSo n 05-12-2022 US PREG BIOPHY W NON STRESS EXAMINATION: US PREG BIOPHY W NON STRESS HISTORY: Excessive growth 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 COMPARISON: Ultrasound biophysical 05/03/2022, postoperative growth 05/05/2022 TECHNIQUE: Ultrasound biophysical profile was performed. FINDINGS: BREATHING MOVEMENTS: 2.0 GROSS BODY MOVEMENTS: 2.0 TONE: 2.0 QUALITATIVE AMNIOTIC FLUID VOLUME: 2.0 PRESENTATION: CEPHALIC HEART RATE: 139.2 bpm bpm. AMNIOTIC FLUID VOLUME: 12.6 cm GESTATIONAL AGE: 36 weeks 5 days CONCLUSION: Total biophysical profile score 8.0. Electronically authenticated by: JEMMA COCHRAN Date: 2022-05-12 16:22 Normal [facility] GROUP B STREP CULTUREon 04-09 S. agalactiae Ag Ql (Unsp spec) Culture Observations: NEGATIVE FOR GROUP B STREPTOCOCCUS. Normal [facility] Comment on above: Performed By: #### G BSCX ####[facility] [address] [place], [place] [address]Xr. Nishi Hyde US PREG GROWTHon 05-05-2022 US PREG GROWTH EXAMINATION: US PREG GROWTH HISTORY: Excessive growth 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 COMPARISON: No relevant comparison available. FINDINGS: Heart Rate: 149.2 bpm Amniotic Fluid Volume: 18.1 cm Number: 1.0 Position: Cephalic presentation, longitudinal lie Maximum Vertical Pocket: 4.7 cm cm 4.2 cm cm 3.1 cm cm 6.2 cm cm BIOMETRY: BPD: 9.5 cm cm; 38 weeks 4 days; greater than 97% HC: 35.0 cmcm; 40 weeks 5 days, greater than 97% AC: 33.6 cm cm; 37 weeks 3 days, 93% FL: 6.7 cm cm; 34 weeks 2 days; 11.2 % % EFW: 3137.2 grams, 6 lbs. 15 oz., 84% FL/AC: 19.9 FL/BPD: 70.3 HC/AC: 1.0 GESTATIONAL AGE: Age by EDC: 35 weeks 6 days HALLEY by EDC: 06/03/2022 Age by US: 37 weeks 5 days HALLEY by US: 05/21/2022 IMPRESSION: BPD and head circumference greater than the 97th percentile Electronically authenticated by: BUSTER YU Date: 2022-05-05 16:34 Normal [facility] US PREG BIOPHY W NON STRESSo n 05-04-2022 US PREG BIOPHY W NON STRESS EXAMINATION: US PREG BIOPHY W NON STRESS HISTORY: Excessive growth 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 COMPARISON: No relevant comparison available. TECHNIQUE: Ultrasound biophysical profile was performed in the radiology department. non-reactive stress testing was performed by nursing staff in the birthing center. FINDINGS: BREATHING MOVEMENTS: 2.0 GROSS BODY MOVEMENTS: 2.0 TONE: 2.0 QUALITATIVE AMNIOTIC FLUID VOLUME: 2.0 PRESENTATION: CEPHALIC HEART RATE: 133.0 bpm H.B./min AMNIOTIC FLUID VOLUME: 16.7 cm cm GESTATIONAL AGE: 35 weeks 4 days CONCLUSION: Total biophysical profile score: 8.0 Electronically authenticated by: BUSTER YU Date: 2022-05-04 16:43 Normal [facility] US PREG BIOPHY W NON STRESSo n 04-26-2022 US PREG BIOPHY W NON STRESS EXAMINATION: US PREG BIOPHY W NON STRESS HISTORY: Excessive growth 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 COMPARISON: Ultrasound biophysical 04/19/2022 TECHNIQUE: Ultrasound biophysical profile was performed. FINDINGS: BREATHING MOVEMENTS: 2.0 GROSS BODY MOVEMENTS: 2.0 TONE: 2.0 QUALITATIVE AMNIOTIC FLUID VOLUME: 2.0 PRESENTATION: CEPHALIC HEART RATE: 153.4 bpm bpm. AMNIOTIC FLUID VOLUME: 14.4 cm GESTATIONAL AGE: 34 weeks 4 days CONCLUSION: Total biophysical profile score 8.0. Electronically authenticated by: JEMMA COCHRAN Date: 2022-04-26 17:01 Normal [facility] US PREG BIOPHY W NON STRESSo n 04-20-2022 US PREG BIOPHY W NON STRESS EXAMINATION: US PREG BIOPHY W NON STRESS HISTORY: Excessive growth 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 COMPARISON: Ultrasound growth 04/07/2022 TECHNIQUE: Ultrasound biophysical profile was performed. FINDINGS: BREATHING MOVEMENTS: 2.0 GROSS BODY MOVEMENTS: 2.0 TONE: 2.0 QUALITATIVE AMNIOTIC FLUID VOLUME: 2.0 PRESENTATION: CEPHALIC HEART RATE: 145.9 bpm bpm. AMNIOTIC FLUID VOLUME: 13.8 cm GESTATIONAL AGE: 33 weeks 4 days CONCLUSION: Total biophysical profile score 8.0. Electronically authenticated by: JEMMA COCHRAN Date: 2022-04-20 16:28 Normal [facility] US PREG GROWTHon 04-07-2022 US PREG GROWTH EXAMINATION: US PREG GROWTH HISTORY: Excessive growth 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 COMPARISON: No relevant comparison available. FINDINGS: Heart Rate: 143.2 bpm Amniotic Fluid Volume: 19.3 cm Number: 1.0 Position: Cephalic presentation, longitudinal lie Maximum Vertical Pocket: 6.0 cm cm 2.6 cm cm 7.2 cm cm 3.5 cm cm BIOMETRY: BPD: 8.7 cm cm; 35 weeks 1 days; 97% HC: 31.3 cmcm; 35 weeks 1 days, 91% AC: 29.5 cm cm; 33 weeks 4 days, 89% FL: 6.7 cm cm; 34 weeks 4 days; 94.4 % % EFW: 2356.6 grams, 5 lbs. 3 oz., 96% FL/AC: 22.7 FL/BPD: 77.1 HC/AC: 1.1 GESTATIONAL AGE: Age by EDC: 31 weeks 6 days HALLEY by EDC: 06/03/2022 Age by US: 34 weeks 4 days HALLEY by US: 05/15/2022 IMPRESSION: Large for gestational age, estimated weight 96 percentile Electronically authenticated by: BUSTER YU Date: 2022-04-07 13:43 Normal [facility] RHOGAMon 03-15-2022 RHOGAM Status Information Issued Quantity 1 Product ID Rh Immune Globulin Lot Number [id number] Issue Date/Time [id number] Normal [facility] Comment on above: Performed By: #### R HOG #### [facility] Laboratory [address] [place] [address] Dr. Nishi Hyde TYPE AND SCREENon 03-13-2022 TYPE AND SCREEN Negative Normal [facility] Comment on above: Performed By: #### T NS #### [facility] Laboratory [address] [place] [id number] [address] Nishi Hyde PREG GROWTHon 03-11-2022 US PREG GROWTH EXAMINATION: US PREG GROWTH HISTORY: Excessive growth 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 COMPARISON: No relevant comparison available. FINDINGS: Heart Rate: 134.0 bpm Amniotic Fluid Volume: 20.2 cm Number: 1.0 Position: Breech presentation, longitudinal lie Maximum Vertical Pocket: 5.5 cm cm 5.1 cm cm 4.1 cm cm 5.5 cm cm BIOMETRY: BPD: 7.9 cm cm; 31 weeks 6 days; >97% HC: 28.1 cmcm; 30 weeks 5 days, 93% AC: 27.8 cm cm; 31 weeks 6 days, >97% FL: 5.8 cm cm; 30 weeks 3 days; 92.9 % % EFW: 1736.9 grams, 3 lbs. 13 oz., >97% FL/AC: 21.0 FL/BPD: 73.3 HC/AC: 1.0 GESTATIONAL AGE: Age by EDC: 28 weeks 0 days HALLEY by EDC: 06/03/2022 Age by US: 31 weeks 2 days HALLEY by US: 05/11/2022 IMPRESSION: Large for gestational age. 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 This test has not been FDA cleared or approved. This test has been authorized by FDA under an Emergency Use Authorization (EUA). This test has been validated in accordance with the FDA's Guidance Document (Policy for Diagnostics Testing in Laboratories Certified to Perform High Complexity Testing under CLIA prior to Emergency Use Authorization for Coronavirus Disease-2019 during the Public Health Emergency) issued on February 07, 2020. This test is only authorized for the duration of time the declaration that circumstances exist justifying the authorization of the emergency use of in vitro diagnostic tests for detection of SARS-CoV-2 virus and/or diagnosis of COVID-19 infection under section 564(b)(1) of the Act, 21 U.S.C. 360bbb-3(b)(1), unless the authorization is terminated or revoked sooner. PERFORMED BY: [place] [address] PATHOLOGIST AERONAUTICS TEACHER YOGI HINES M.D. Performed By: #### C OVID 19 [facility] #### [facility] [address] [place] [address] COVID Quick Testingon 2021 Result Negative [employer] Other HCG,Qualitative Rfx to Quant on 09-21-2021 HCG,Qualitative Rfx to Quant Positive Normal [facility] Comment on above: Order Comment: Reaso n for Exam Amenorrhea Result Comment: PERF ORMED BY: [place] [address] PATHOLOGIST AERONAUTICS TEACHER YOGI HINES M.D. Performed By: #### H CG QUAL RFX, HCGQNT #### [facility] [address] [place], [place] [id number] [facility] HCG,Quantitativeon 1 HCG,Quantitative 104.47 m[iU]/mL Normal [facility] Comment on above: Order Comment: Reaso n for Exam Amenorrhea Result Comment: Appr oximate Approximate hCG Gestational Age Range (mIU/ml) (weeks) 0.2-1 5-50 1-2 50-500 2-3 100-5,000 3-4 500-10,000 4-5 1,000-50,000 5-6 10,000-100,000 6-8 15,000-200,000 8-12 10,000-100,000 PERFORMED BY: [place] [id number] PATHOLOGIST AERONAUTICS TEACHER YOGI HINES M.D. Performed By: #### H CG QUAL RFX, HCGQNT #### [facility] [address] Office Visit (Cardiology)on 09-21-2021 Follow-up visit Diagnoses/Problems Assessed Palpitations (785.1) (R00.2) Morbid obesity with BMI of 45.0-49.9, adult (278.01,V85.42) (E66.01,Z68.42) Never a smoker PVC (premature ventricular contraction) (427.69) (I49.3) (V22.2) (Z34.90) Orders Morbid obesity with BMI of 45.0-49.9, adult Healthy Weight Tips; Status:Complete; Done: [id number] Palpitations IO EKG Electrocardiogram- 12 Lead; Status:Complete; Done: [id number] SocHx: Never a smoker Tobacco Use Screening; Status:Complete; Done: [id number] Patient Instructions By signing my name below, ILudivina LPN, Scribe, attest that this documentation has been prepared under the direction and in the presence of Dr. Robby Gordillo MD. All medical record entries made by the Maicolibdeniz were at my direction and personally dictated by me. I have reviewed the chart and agree that the record accurately reflects my personal performance of the history, physical exam, discussion and plan. Please bring all medicines, vitamins, and herbal supplements with you when you come to the office. Prescriptions will not be filled unless you are compliant with your follow up appointments or have a follow up appointment scheduled as per instruction of your physician. Refills should be requested at the time of your visit. Educated patient that she does not need to take Metoprolol Follow-up as needed only Chief Complaint FELIPA ELLIOTT is being seen for a cardiovascular evaluation. FELIPA ELLIOTT is being seen for palpitations. History of Present Illness Patient is seen at the request of her primary care provider for tachycardia She is individual who has seen several primary care providers recently. Details are unclear but one of them ordered a Holter monitor and thereafter she started seeing someone else. The first provider was not concerned about the tachycardia but the second 1 was not because of this she is seen She denies syncope near syncope palpitation orthopnea PND dyspnea exertion or chest pain. She is a relatively healthy 26-year-old with no activity intolerance. When she is active her she is aware of an increased heart rate but no symptoms. We were not in receipt of the Holter monitor which was the 1 piece of information we needed. Fortunately she was able to pull it up on her cell phone and I read the report. It demonstrates sinus rhythm and/or mild sinus tachycardia with heart rates up to 140 bpm but no SVT or ventricular tachycardia no couplets no atrial ectopy and only 11 PVCs. These findings were explained to her and I pointed out to her that this is basically normal physiology. She does not have a pathophysiologic phenomenon and requires no further evaluation or treatment. She states that she was treated with metoprolol and she felt absolutely lousy and I advised her she does not need that whatsoever because of this she does not not need to take it anymore. She states this is good because she just found out she is . Advised her to stop taking all cardiac active medications but she already had stopped taking the metoprolol because of this she will not resume it. After long detailed discussion we educated her extensively regarding my believe that she has no evidence of underlying heart disease whatsoever and she is provided significant education reassurance and I suggested she could see us henceforth as needed. She is comfortable with that proposal. The merits of dieting were advocated. Current Meds Medication NameInstruction Topamax 25 MG Oral TabletTake 1 tablet daily Vitamin D 36491 UNIT CAPSTAKE 1 CAPSULE WEEKLY. Zoloft 100 MG Oral TabletTAKE 1 TABLET DAILY DIRECTED. Patient did not bring medications list or bottles. Updated verbally with patient. Allergies Medication No Known Drug Allergies Recorded By: Savanah Lamar; 09/21/2021 11:01:43 AM Social History Problems Daily caffeine consumption, 2-3 servings a day Never a smoker No illicit drug use Occasional alcohol use Review of Systems Constitutional: not feeling tired. Eyes: no eyesight problems. ENT: no hearing loss and no nosebleeds. Cardiovascular: no intermittent leg claudication and as noted in HPI. Respiratory: no chronic cough and no shortness of breath. Gastrointestinal: no change in bowel habits and no blood in stools. Genitourinary: no urinary frequency. Skin: no skin rashes. Neurological: no seizures and no frequent falls. Psychiatric: no depression and not suicidal. All other systems have been reviewed and are negative for complaint. Vitals Vital Signs Recorded: [id number] 11:13AMRecorded: 38Ryr9172 11:04AM Pspcbjdi448, RUE, Sijhixt795, LUE, Sitting Bqyuigywk85, RUE, Jtjokll50, LUE, Sitting Heart Rate90, Apical Height5 ft 4 in Ipoonp854 lb 12.8 oz BMI Aseeysyqku25.45 kg/m2 BSA Calculated2.2 Tobacco Useb) No EKG done in office today. Physical Exam Constitutional: alert and in no acute distress. Eyes: no erythema, swelling or discharge from th (more content not included)... Normal [facility] Tobacco Screening.on 021 Tobacco use status CPHS b) No [facility]Jerzy 250 DO Work Phone: Vitamin B12on 08-28-2021 Cobalamin (Vitamin B12) [Mass/Vol] 429 pg/mL Normal 180-914 [facility] Comment on above: Order Comment: Reaso n for Exam Heart palpitations;Chronic fatigue Performed By: #### V [id number], B12 #### [facility] [address] [place] [id number] [facility] Vitamin D 25 Hydroxy Totalon 08-28-2021 Vitamin D 25 Hydroxy Total 22.4 ng/mL Low 30-100 [facility] Comment on above: Order Comment: Reaso n for Exam Heart palpitations;Chronic fatigue Result Comment: DAVINA MIN D STATUS 25(OH)VITAMIN D RANGE (ng/mL) Deficient <20 Insufficient 20 to <30 Sufficient 30 to 100 Reference: Nellie MF,German NC, John LANGLEY, et al. Evaluation,treatment, and prevention of vitamin D deficiency; an Endocrine Society clinical practice guideline. JCEM. 2010; 96(7):1911-30. PERFORMED BY: [place] [address] PATHOLOGIST AERONAUTICS TEACHER YOGI HINES M.D. Performed By: #### V [id number], B12 #### [facility] [address] [place] [id number] [facility] COVID Quick Testingon 2020 Result Negative [employer] Other Quick Strepon 08-23-2021 S. pyogenes Org specific cx Ql (Throat) Positive [employer] Other Quick Strep [employer] Other Comprehensive Metabolic Empo n 08-04-2021 Albumin [Mass/Vol] 4.0 g/dL Normal 3.2-5.5 [facility] Comment on above: Performed By: #### E BS CMP, EBS LIPID #### [facility] [address] [place] [id number] [place] Albumin/Globulin [Mass ratio] 1.3 {ratio} Normal [facility] Comment on above: Performed By: #### E BS CMP, EBS LIPID #### [facility] [address] [place] [id number] [facility] ALP [Catalytic activity/Vol] 59 U/L Normal 32-92 [facility] Comment on above: Performed By: #### E BS CMP, EBS LIPID #### [facility] [address] [place] [id number] [place] ALT [Catalytic activity/Vol] 17 U/L Normal 10-60 [facility] Comment on above: Performed By: #### E BS CMP, EBS LIPID #### [facility] [address] [place] [id number] [place] AST [Catalytic activity/Vol] 17 U/L Normal 10-42 [facility] Comment on above: Performed By: #### E BS CMP, EBS LIPID #### [facility] [address] [place] [id number] [place] Bilirubin [Mass/Vol] 0.5 mg/dL Normal 0.3-1.2 [facility] Comment on above: Performed By: #### E BS CMP, EBS LIPID #### [facility] [address] [place] [address] [place] Calcium [Mass/Vol] 8.7 mg/dL Normal 8.2-10.2 [facility] Comment on above: Performed By: #### E BS CMP, EBS LIPID #### [facility] [address] [place] [address] [place] Chloride [Moles/Vol] 104 mmol/L Normal 95-114 [facility] Comment on above: Performed By: #### E BS CMP, EBS LIPID #### [facility] [address] [place] [address] [place] CO2 [Moles/Vol] 23.8 mmol/L Normal 22.0-30.0 [facility] Comment on above: Performed By: #### E BS CMP, EBS LIPID #### [facility] [address] [place] [address] [place] Creatinine [Mass/Vol] 0.57 mg/dL Normal 0.44-1.03 [facility] Comment on above: Performed By: #### E BS CMP, EBS LIPID #### [facility] [address] Estimated GFR ( Rima > 60 Normal [facility] Comment on above: Result Comment: GFR estimated reference range: According to KDOQI guidelines, <60 ml/min/1.73m2 is sufficient to diagnose a patient with chronic kidney disease. Performed By: #### E BS CMP, EBS LIPID #### [address] Estimated GFR (Non- Am > 60 Normal [facility] Comment on above: Performed By: #### E BS CMP, EBS LIPID #### [address] Globulin (S) [Mass/Vol] 3.0 g/dL Normal [facility] Comment on above: Performed By: #### E BS CMP, EBS LIPID #### [facility] [address] [place] [address] [place] Glucose [Mass/Vol] 79 mg/dL Normal 70-100 [facility] Comment on above: Performed By: #### E BS CMP, EBS LIPID #### [facility] [address] [place] [address] [place] Potassium [Moles/Vol] 4.0 mmol/L Normal 3.5-5.1 [facility] Comment on above: Performed By: #### E BS CMP, EBS LIPID #### [facility] [address] [place] [address] [place] Protein [Mass/Vol] 7.0 g/dL Normal 6.1-7.9 [facility] Comment on above: Performed By: #### E BS CMP, EBS LIPID #### [facility] [address] Sodium [Moles/Vol] 136 mmol/L Normal 136-146 [facility] Comment on above: Performed By: #### E BS CMP, EBS LIPID #### [facility] [address] [place] [address] [place] Urea nitrogen [Mass/Vol] 9 mg/dL Normal 9-23 [facility] Comment on above: Performed By: #### E BS CMP, EBS LIPID #### [facility] [address] Lipid Profileon 08-04-2021 Cholesterol [Mass/Vol] 164 mg/dL Normal 140-200 [facility] Comment on above: Result Comment: Chol less than 200 mg/dl low risk Chol 201-239 mg/dl borderline risk Chol 240 mg/dl and greater high risk Performed By: #### E BS CMP, EBS LIPID #### [facility] [address] Cholesterol in HDL [Mass/Vol] 30 mg/dL Low 35-85 [facility] Comment on above: Result Comment: HDL CHOL ATP-III CLASSIFICATION Cardiovascular Risk HDL > or equal to 60 mg/dL LOW HDL < 40 mg/dL HIGH Performed By: #### E BS CMP, EBS LIPID #### [facility] [address] Cholesterol.total/ Cholesterol in HDL [Mass ratio] 5.5 {ratio} Normal <5.0 [facility] Comment on above: Result Comment: PERF ORMED BY: [place] [address] PATHOLOGIST AERONAUTICS TEACHER YOGI HINES M.D. Performed By: #### E BS CMP, EBS LIPID #### [facility] [address] LDL Cholesterol,Calcul ated 92 mg/dL Normal 0-100 [facility] Comment on above: Result Comment: LDL ATP III CLASSIFICATION LDL less than 100 mg/dL Optimal LDL 100-129 mg/dL Near or above optimal LDL 130-159 mg/dL Borderline high LDL 160-189 mg/dL High LDL greater than 189 mg/dL Very high Performed By: #### E BS CMP, EBS LIPID #### [facility] [address] Triglyceride w/Reflex 212 mg/dL High 35-149 [facility] Comment on above: Result Comment: TRIG ATP III CLASSIFICATION TRIG less than 150 mg/dL Normal TRIG 150-199 mg/dL Borderline high TRIG 200-500 mg/dL High TRIG greater than 500 mg/dL Very high Standard traceable to the Center for Disease Conrtrol and Prevention (CDC) test method. Performed By: #### E BS CMP, EBS LIPID #### [facility] [address] VLDL CHOLESTEROL 42 mg/dL Normal [facility] Comment on above: Performed By: #### E BS CMP, EBS LIPID #### [facility] [address] Vital Signs Date Time Vital Sign Value Performing Clinician Facility 02-23-2024 13:17-0400 Body mass index (BMI) [Ratio] 44.26 kg/m2 Nirav Bryant APRN-MONEY COUNTER Work Phone: [facility] 02-23-2024 13:17-0400 Body temperature 97.39 [degF] Nirav Bryant APRN-MONEY COUNTER Work Phone: [facility] 02-23-2024 13:17-0400 Body weight 117.03 kg Nirav Bryant APRN-MONE[employer] COUNTER Work Phone: [facility] 02-23-2024 13:17-0400 Diastolic blood pressure 70 mm[Hg] Nirav Bryant APRN-MONE[employer] COUNTER Work Phone: [facility] 02-23-2024 13:17-0400 Heart rate 88 /min Nirav Bryant APRN-MONEY COUNTER Work Phone: [facility] 02-23-2024 13:17-0400 Respiratory rate 16 /min Nirav Bryant APRN-MONEY COUNTER Work Phone: [employer] 02-23-2024 13:17-0400 SaO2% (BldA) [Mass fraction] 97 % Nirav Bryant TIP STRETCHER-[employer] COUNTER [facility] 02-23-2024 13:17-0400 Systolic blood pressure 118 mm[Hg] Nirav Bryant TIP STRETCHER-[employer]TER [facility] 12-15-2023 14:40-0500 Body mass index (BMI) [Ratio] 43.92 kg/m2 Nirav Bryant TIP STRETCHER-[employer] COUNTER [facility] 12-15-2023 14:40-0500 Body weight 116.12 kg Nirav Bryant APRN-MONEY COUNTER Work Phone: [employer] 12-15-2023 14:40-0500 Diastolic blood pressure 76 mm[Hg] Nirav Bryant APRN-MONEY COUNTER [facility] 12-15-2023 14:40-0500 Heart rate 82 /min Nirav Bryant APRN-MONEY COUNTER Work Phone: [employer] 12-15-2023 14:40-0500 Respiratory rate 16 /min Nirav Bryant TIP STRETCHER-MONEY COUNTER Work Phone: [employer] 12-15-2023 14:40-0500 Systolic blood pressure 124 mm[Hg] Nirav Bryant TIP STRETCHER-MONEY COUNTER Work Phone: [employer] 12-13-2021 11:00-0500 Body height 162.56 cm Diamante Levine Other [employer] Other 12-13-2021 11:00-0500 Body temperature 97.9 [degF] Diamante Levine Other [employer] Other 12-13-2021 11:00-0500 Respiratory rate 18 /min Diamante Keanemond Other [employer] Other 12-13-2021 11:00-0500 SaO2% (BldA) [Mass fraction] 98 % Diamante Keanemond Other [employer] Other 11-10-2021 16:45-0500 Body height 162.56 cm Diamante Keanemond Other [employer] Other 11-10-2021 16:45-0500 Body mass index (BMI) [Ratio] 45.65 kg/m2 Diamante Keanemond Other [employer] Other 11-10-2021 16:45-0500 Body temperature 98.5 [degF] Diamante Keanemond Other [employer] Other 11-10-2021 16:45-0500 Body weight 120.66 kg Diamante Keanemond Other [employer] Other 11-10-2021 16:45-0500 Respiratory rate 18 /min Diamante Keanemond Other [employer] Other 11-10-2021 16:45-0500 SaO2% (BldA) [Mass fraction] 98 % Diamante Keanemond Other [employer] Other 09-21-2021 11:13-0500 Diastolic blood pressure 74 mm[Hg] Alena Arteaga Work Phone: [facility] FST21-[place] 250 DO Work Phone: 09-21-2021 11:13-0500 Systolic blood pressure 108 mm[Hg] Alena Arteaga Work Phone: [facility] [place] [facility] 250 DO Work Phone: 09-21-2021 11:04-0500 Body height 162.56 cm Alena Arteaga Work Phone: [facility] 250 DO Work Phone: 09-21-2021 11:04-0500 Body mass index (BMI) [Ratio] 45.45 kg/m2 Alena Arteaga Work Phone: [facility] 250 DO Work Phone: 09-21-2021 11:04-0500 Body surface area Derived from formula 2.2 m2 Alena Arteaga Work Phone: [facility] 250 DO Work Phone: 09-21-2021 11:04-0500 Body weight 120.11 kg Alena Arteaga Work Phone: [facility] 250 DO Work Phone: 09-21-2021 11:04-0500 Diastolic blood pressure 80 mm[Hg] Alena Delgadoault Work Phone: [facility] 250 DO Work Phone: 09-21-2021 11:04-0500 Heart rate 90 /min Alena Delgadoault Work Phone: [facility] 250 DO Work Phone: 09-21-2021 11:04-0500 Systolic blood pressure 112 mm[Hg] Alena Delgadoault Work Phone: [facility] 250 DO Work Phone: 08-23-2021 11:45-0400 Body height 162.56 cm Diamante Levine Other [employer] Other 08-23-2021 11:45-0400 Body mass index (BMI) [Ratio] 45.24 kg/m2 Diamante Levine Other [employer] Other 08-23-2021 11:45-0400 Body temperature 98 [degF] Diamante Levine Other [employer] Other 08-23-2021 11:45-0400 Body weight 119.57 kg Diamante Julianna Other [employer] Other 08-23-2021 11:45-0400 Diastolic blood pressure 72 mm[Hg] Diamante Julianna Other [employer] Other 08-23-2021 11:45-0400 Respiratory rate 18 /min Diamante Keanemond Other [employer] Other 08-23-2021 11:45-0400 SaO2% (BldA) [Mass fraction] 98 % Diamante Levine Other [employer] Other 08-23-2021 11:45-0400 Systolic blood pressure 120 mm[Hg] Diamante Levine Other [employer] Other Encounters Encounter Date Encounter Type Care Provider Facility Start: 02-07-2025 End: 02-07-2025 [facility] Start: 01-11-2025 End: 01-11-2025 Telephone encounter Vanessa Roper CMA [facility] Comment on above: Appointment due Start: 08-02-2024 End: 08-02-2024 ambulatory [facility] Start: 07-30-2024 End: 07-30-2024 ambulatory [facility] Facility:[facility] Start: 03-07-2024 End: 03-07-2024 ambulatory [facility] Start: 03-02-2024 End: 03-02-2024 Telephone encounter Belen Retana [facility] Start: 03-01-2024 End: 03-01-2024 ambulatory [facility] Start: 03-01-2024 Encounter for genera l adult medical examination without abnormal findings [facility] Start: 02-23-2024 End: 02-23-2024 ambulatory [facility] Start: 02-23-2024 End: 02-23-2024 Office outpatient visit 25 minutes Nirav Bryant TIP STRETCHER-MONEY COUNTER Work Phone: [facility] Comment on above: Palpitations (Primar y Dx); Shortness of breath; Anxiety; PCOS (polycystic ovarian syndrome); Other depression; Chest pain, unspecified type; Hyperinsulinism Start: 12-19-2023 Orders Only Nirav vogel TIP STRETCHER-MONEY COUNTER Work Phone: [facility] Start: 12-15-2023 End: 12-15-2023 ambulatory [facility] Start: 12-15-2023 Encounter for genera l adult medical examination without abnormal findings [facility] Start: 12-15-2023 End: 12-15-2023 Patient encounter status Nirav Bryant TIP STRETCHER-MONEY COUNTER Work Phone: [facility] Work Phone: Start: 12-15-2023 End: 12-15-2023 Periodic preventive med est patient 18-39 yrs Nirav Bryant TIP STRETCHER-MONEY COUNTER Work Phone: [facility] Comment on above: Wellness examination (Primary Dx); Hyperinsulinism; PCOS (polycystic ovarian syndrome); Anxiety; Pseudotumor cerebri syndrome; Other depression Start: 12-09-2023 Refill Nirav vogel TIP STRETCHER-MONEY COUNTER Work Phone: [facility] Comment on above: Hyperinsulinism; PCOS (polycystic ovarian syndrome) Start: 12-02-2022 End: 12-03-[address] DOCTOR RODRIGUEZ Facility:[facility] Start: 11-01-2022 End: 11-01-2022 ambulatory VANESSA JARAERLY Facility:[facility] Start: 07-16-2022 Encounter for preprocedural cardiovascular examination DR MARGARITO STEARNS . [facility] Start: 07-16-2022 End: 07-16-[address] MARGARITO STEARNS . Facility:[facility] Start: 07-13-2022 End: 07-14-2022 Encounter for preprocedural cardiovascular examination DR KENY ARZOLA Facility:[facility] Start: 07-13-2022 End: 07-14-[address] KENY ARZOLA Facility:[facility] Start: 06-17-2022 End: 06-18-[address] KENY ARZOLA Facility:[facility] Start: 05-24-[address] MARGARITO STEARNS . Facili ty:[facility] Start: 05-18-2022 End: 05-20-2022 Evaluation and management of inpatient DR DOCTOR RODRIGUEZ Facility:[facility] Start: 05-13-2022 End: 05-13-[address] KENY ARZOLA Facility:[facility] Start: 05-11-2022 End: 05-11-[address] KENY ARZOLA Facility:[facility] Start: 05-06-2022 End: 05-06-[address] DUKE ALVAREZ . Facility:[facility] Start: 05-06-2022 End: 05-06-[address] KENY ARZOLA Facility:[facility] Start: 05-05-2022 End: 05-06-[address] BUSTER YU Facility:[facility] Start: 05-03-2022 End: 05-03-[address] BUSTER YU Facility:[facility] Start: 04-29-2022 End: 04-29-[address] KENY ARZOLA Facility:[facility] Start: 04-26-2022 End: 04-26-[address] DUKE ALVAREZ . Facility:[facility] Start: 04-22-2022 End: 04-22-[address] KENY ARZOLA Facility:[facility] Start: 04-19-2022 End: 04-19-[address] DUKE ALVAREZ . Facility:[facility] Start: 04-07-2022 End: 04-08-[address] BUSTER YU Facility:[facility] Start: 03-15-2022 End: 03-15-[address] MARGARITO STEARNS . Facility:[facility] Start: 03-11-2022 End: 03-12-[address] BUSTER YU Facility:[facility] Start: 12-13-2021 End: 12-13-2021 ambulatory Diamante Levine Other [employer] Other Start: 12-13-2021 Office outpatient vi sit 15 minutes Diamante Julianna [facility] Start: 11-10-2021 (URG) Urgent Care Visit Diamante Lakhwindermon d [facility] Start: 11-10-2021 End: 11-10-2021 ambulatory Diamante Levine Other [employer] Other Start: 09-21-2021 Patient encounter procedure Alena Arteaga Work Phone: [facility] 250 DO Work Phone: Start: 09-20-2021 End: 09-20-2021 ambulatory Alena Arteaga Other [employer] Other Start: 09-20-2021 Telephone encounter Alenaavinash Howardl t [facility] Start: 09-10-2021 End: 09-10-2021 ambulatory Alena Arteaga Other [employer] Other Start: 09-10-2021 Telephone encounter Alenaavinash Howardl t [facility] Start: 09-03-2021 End: 09-03-2021 ambulatory Alena Arteaga Other [employer] Other Start: 09-03-2021 Telephone encounter Alena Breaul t [facility] Start: 08-23-2021 Office outpatient vi sit 15 minutes Diamante Julianna [facility] Procedures Date Procedure Procedure Detail Performing Clinician Start: 03-07-2024 Adult depression scr eening assessment Vanessa Jacquelin ORELLANA Start: 02-01-2023 Adult depression scr eening assessment Nirav HUNG Work Phone: Start: 05-18-2022 Delivery of Products of Conception, External Approach VANESSA BENITEZ Start: 05-18-2022 Drainage of Amniotic Fluid, Therapeutic from Products of Conception, Via Natural or Artificial Opening VANESSA BENITEZ Start: 05-18-2022 Introduction of Othe r Hormone into Peripheral Vein, Percutaneous Approach VANESSA BENITEZ Start: 05-18-2022 Repair Perineum Skin , External Approach VANESSA BENITEZ Cholecystectomy Alena Arteaga Work Phone: Dilation and curettage Irena Arteaga Work Phone: Extraction of wisdom tooth S shaila Arteaga Work Phone: NEGATED: Highlighted row has not occurred! Total colonoscopy Alena conley Work Phone: Plan of Treatment Date Care Activity Detail Author Start: 02-24-2031 DTaP,Tdap and Td Vaccines (8 - Td or Tdap) DTaP,Tdap and Td Vaccines (8 - Td or Tdap) [facility] Start: 08-02-2025 Adult BMI Screening Adult BMI Screen ing [facility] Start: 08-02-2025 Tobacco Screening Tobacco Screening [facility] Start: 03-07-2025 Depression Screening Depression Scre ening [facility] Start: 02-22-2025 Adult BMI Screening Adult BMI Screen ing [facility] Start: 02-22-2025 Tobacco Screening Tobacco Screening [facility] Start: 12-15-2024 Adult BMI Follow Up Plan Adult BMI Follow Up Plan [facility] Start: 12-15-2024 Adult BMI Screening Adult BMI Screen ing [facility] Start: 12-15-2024 Tobacco Screening Tobacco Screening [facility] Start: 09-14-2024 Adult BMI Follow Up Plan Adult BMI Follow Up Plan [facility] Start: 09-14-2024 Adult BMI Screening Adult BMI Screen ing [facility] Start: 09-14-2024 Tobacco Screening Tobacco Screening [facility] Start: 07-08-2024 COVID-19 Vaccine ( season) COVID-19 Vaccine ( season) [facility] Start: 07-08-2024 Influenza vaccination Influenza Vacc ine [facility] Start: 06-07-2024 End: 06-07-2024 Patient encounter procedure 06/07/2024 3:00 PM EDT Office Visit [facility] [address] [place] [id number] Nirav Bryant, TIP STRETCHER-MONEY COUNTER [address] [place] [address] [facility] Start: 02-23-2024 End: 02-22-2025 Echo complete W/O contrast Echo complete W/O contrast Echocardiography Routine Palpitations Shortness of breath Chest pain, unspecified type Expected: 02/23/2024, Expires: 02/22/2025 [facility] Comment on above: Expected: 02/23/2024 , Expires: 02/22/2025 Start: 02-23-2024 End: 02-22-2025 Holter monitor study Holter monitor 24-48 hour Cardiac Services Routine Palpitations Shortness of breath Expected: 02/23/2024, Expires: 02/22/2025 [facility] Comment on above: Expected: 02/23/2024 , Expires: 02/22/2025 Start: 02-23-2024 End: 02-22-2025 Thyroid profile includes TSH FT4 Thyroid profile includes TSH FT4 Lab Routine Palpitations Expected: 02/23/2024, Expires: 02/22/2025 [facility] Comment on above: Expected: 02/23/2024 , Expires: 02/22/2025 Start: 02-02-2024 Depression Screening Depression Scre ening [facility] Start: 12-15-2023 End: 12-15-2023 Patient encounter procedure 12/15/2023 2:45 PM EST Office Visit [facility] [address] [place] [id number] Nirav Bryant, TIP STRETCHER-MONEY COUNTER [address] [place] [address] [facility] Start: 12-15-2023 End: 12-14-2024 CBC W Auto Differential panel - Blood CBC auto differential Lab Routine Wellness examination Expected: 12/15/2023, Expires: 12/14/2024 [facility] Work Phone: Comment on above: Expected: 12/15/2023 , Expires: 12/14/2024 Start: 12-15-2023 End: 12-14-2024 Lipid 1996 panel - Serum or Plasma Lipid profile Lab Routine Wellness examination Expected: 12/15/2023, Expires: 12/14/2024 [facility] Comment on above: Expected: 12/15/2023 , Expires: 12/14/2024 Start: 07-08-2023 COVID-19 Vaccine () COVID-19 Vaccine () [facility] Start: 2015 Screening for malign ant neoplasm of cervix Pap Smear [facility] End: 12-14-2024 Comprehensive metabolic 2000 panel - Serum or Plasma Comprehensive metabolic panel Lab Routine Wellness examination 1 Occurrences starting 12/15/2023 until 12/14/2024 [facility] Comment on above: 1 Occurrences starti ng 12/15/2023 until 12/14/2024 End: 02-22-2025 ECG 12 lead ECG 12 lead ECG Routine Palpitations Shortness of breath 1 Occurrences starting 02/23/2024 until 02/22/2025 [facility] Work Phone: Comment on above: 1 Occurrences starti ng 02/23/2024 until 02/22/2025 End: 12-15-2024 Insulin Insulin Lab Routine Hyperinsulinism PCOS (polycystic ovarian syndrome) 1 Occurrences starting 12/15/2023 until 12/15/2024 [facility] Comment on above: 1 Occurrences starti ng 12/15/2023 until 12/15/2024 Immunizations Immunization Date Immunization Notes Care Provider Fa cility 08-24-2023 influenza virus vaccine, unspecified formulation Nirav Taylormahesh TIP STRETCHER-[employer] COUNTER Work Phone: [facility] 02-05-2021 Moderna COVID-19 Vaccine 100 MCG/0.5ML Intramuscular Suspension Alena Savage Artegaa Work Phone: [facility] 250 DO Work Phone: Comment on above: Series: 12-31-2020 Moderna COVID-19 Vaccine 100 MCG/0.5ML Intramuscular Suspension Alena Wan Chandler Work Phone: [facility] DO Work Phone: Comment on above: Series: Payers Date Payer Category Payer Medicaid HMO [employer] [id number] 2016 Medicaid [id number] 1994 Unknown [id number] 2.16.840.1.250941.3.579.2. 593 1994 Unknown [id number] 2.16.840.1.179923.3.579.2. 593 1994 Unknown [id number] 2.16.840.1.883838.3.579.2. 593 1994 Unknown [id number] 2.16.840.1.290118.3.579.2. 593 1994 Unknown [id number] 2.16.840.1.174118.3.579.2. 593 1994 Unknown [id number] 2.16.840.1.171259.3.579.2. 593 1994 Unknown [id number] 2.16.840.1.871276.3.579.2. 593 1994 Unknown [id number] 2.16.840.1.355649.3.579.2. 593 1994 Unknown [id number] 2.16.840.1.369656.3.579.2. 593 1994 Unknown [id number] 2.16.840.1.921509.3.579.2. 593 1994 Unknown [id number] 2.16.840.1.488621.3.579.2. 593 1994 Unknown [id number] 2.16.840.1.283125.3.579.2. 593 1994 Unknown [id number] 2.16.840.1.493682.3.579.2. 593 1994 Unknown [id number] 2.16.840.1.460181.3.579.2. 593 1994 Unknown [id number] 2.16.840.1.128082.3.579.2. 593 1994 Unknown [id number] 2.16.840.1.322615.3.579.2. 593 1994 Unknown [id number] 2.16.840.1.210265.3.579.2. 593 1994 Unknown [id number] 2.16.840.1.877378.3.579.2. 593 1994 Unknown [id number] 2.16.840.1.331356.3.579.2. 593 1994 Unknown [id number] 2.16.840.1.345447.3.579.2. 593 1994 Unknown [id number] 2.16.840.1.739728.3.579.2. 1286 1994 Unknown [id number] 2.16.840.1.042266.3.579.2. 1286 1994 Unknown [id number] 2.16.840.1.504868.3.579.2. 1286 1994 Unknown [id number] 2.16.840.1.640663.3.579.2. 1286 1994 Unknown [id number] 2.16.840.1.333868.3.579.2. 1286 1994 Unknown [id number] 2.16.840.1.877908.3.579.2. 1286 1994 Unknown [id number] 2.16.840.1.048276.3.579.2. 1286 1959 Private Health Insurance [id number] 1959 Self-pay 1959 Self-pay [id number] 1959 Unknown [id number] 2.16.840.1.887480.19 Private Health Insurance [id number] 2.16.840.1.162828.19 Unknown Unknown [id number] 2.16.840.1.029464.19 Unknown [id number] 2.16.840.1.866391.3.579.2. 593 Social History Date Type Detail Facility Start: 11-25-2022 End: 02-23-2024 No illicit drug use No illicit drug use [facility] Start: 11-25-2022 End: 02-23-2024 Sex Assigned At [facility] Start: 11-30-2022 Tobacco smoking stat [facility] Never smoked tobacco [facility] Start: 11-30-2022 Tobacco use and exposure Smoke less tobacco non-user [facility] Start: 02-23-2024 End: 08-02-2024 Alcoholic beverage intake Current non-drinker of alcohol (finding) [facility] Do you belong to any clubs or organizations such as anabaptist groups, unions, fraternal or athletic groups, or school groups? No [facility] Are you now , , , , never or living with a partner? [facility] How often to you hav e a drink containing alcohol? Monthly or less [facility] How many standard dr inks containing alcohol do you have on a typical day? 1 or 2 [facility] How often do you hav e 6 or more drinks on 1 occasion? Less than monthly [facility] How hard is it for y ou to pay for the very basics like food, housing, medical care, and heating Somewhat hard [facility] Adolescent depressio n screening assessment 0 [facility] Do you feel stress - tense, restless, nervous, or anxious, or unable to sleep at night because your mind is troubled all the time - these days [OSQ] Very much [facility] Start: 11-25-2022 Education 21 [facility] Start: 1995 Sex assigned at Not on file P [facility] Start: 06-12-2015 Sex Female (finding) [facility] Clinical Notes 08-23-2021 to 01-11-2025 Telephone Encounter - Vanessa Roper CMA - 01/11/2025 2:51 PM ESTTelephone Encounter - Vanessa Roper CMA - 01/11/2025 2:51 PM YULY Whitmore CNP - 02/23/2024 1:30 PM EDT Note Date & Type Note Facility 01-11-2025 Miscellaneous Notes Care Coordination Outreach performed to coordinate overdue appointments, testing, and/or follow-up care: Yes Audit/Outreach Date: January 11, 2025 Reason: Cervical Cancer Screening and Well Person Method: Telephone and MyChart Outreach Attempt: First Outcome: Left Message and Letter Sent Next PCP Appointment: N/A Tests/Referrals Pended: N/A Resources/Education Provided: Additional Comments: Unable to reach patient by telephone to schedule appointment. Letter sent. documented in this encounter [facility] 01-11-2025 Telephone encounter Note Care Coordination Outreach performed to coordinate overdue appointments, testing, and/or follow-up care: Yes Audit/Outreach Date: January 11, 2025 Reason: Cervical Cancer Screening and Well Person Method: Telephone and MyChart Outreach Attempt: First Outcome: Left Message and Letter Sent Next PCP Appointment: N/A Tests/Referrals Pended: N/A Resources/Education Provided: Additional Comments: Unable to reach patient by telephone to schedule appointment. Letter sent. [facility] 03-02-2024 Miscellaneous Notes ----- Message from ABHILASH Horvath sent at 03/01/2024 4:00 PM EDT ----- Insulin level is slightly elevated but not as bad as prior. Does look like she needs a multivitamin with iron. Will call her with echo and holter when she gets that done. EKG did not show anything related to symptoms. Patient informed of results and instructions. She voiced understanding. documented in this encounter [facility] 03-02-2024 Telephone encounter Note ----- Message from ABHILASH Horvath sent at 03/01/2024 4:00 PM EDT ----- Insulin level is slightly elevated but not as bad as prior. Does look like she needs a multivitamin with iron. Will call her with echo and holter when she gets that done. EKG did not show anything related to symptoms. [facility] 03-02-2024 Telephone encounter Note Patient informed of results and instructions. She voiced understanding. [facility] [employer] 02-23-2024 History of Presen t illness Narrative Images from the original note were not included. [address] [place] [id number] SUBJECTIVE: Patient ID: Felipa Elliott is a 28 y.o. female. Patient presents to the office with complaints of shortness of breath and palpitations for the past few months. She states this happened years ago and her previous pcp did a holter monitor which was negative. Does not feel anxiety has been worse. When she is walking down the [place] it happens and various other times. She had chest x-ray last year and PFT which were normal. Does have history of PCOS and does not tolerate trulicity due to GI side effects. Will refer her to endocrinology. The following portions of the patient's history were reviewed and updated as appropriate: allergies, current medications, past family history, past medical history, past social history, past surgical history and problem list. REVIEW OF SYSTEMS: Review of Systems Constitutional: Negative for fatigue, fever and unexpected weight change. HENT: Negative for congestion, ear pain, sinus pressure, sinus pain and sore throat. Eyes: Negative for photophobia, pain, discharge and visual disturbance. Respiratory: Positive for shortness of breath. Negative for cough. Cardiovascular: Positive for palpitations. Negative for chest pain and leg swelling. Gastrointestinal: Negative for abdominal pain, diarrhea, nausea and vomiting. Endocrine: Negative for polydipsia, polyphagia and polyuria. Genitourinary: Negative for difficulty urinating, frequency, hematuria and urgency. Musculoskeletal: Negative for arthralgias, gait problem, joint swelling and neck pain. Skin: Negative for pallor and rash. Neurological: Negative for dizziness, weakness, light-headedness and numbness. Psychiatric/Behavioral: Negative for sleep disturbance. The patient is not nervous/anxious. PHYSICAL EXAMINATION: Vitals: 02/23/24 1317 BP: 118/70 BP Site: Left Arm BP Postition: Sitting BP CUFF SIZE: M (9-13 inches) Pulse: 88 Resp: 16 Temp: 36.3 C (97.4 F) TempSrc: Tympanic SpO2: 97% Weight: 117 kg (258 lb) Physical Exam Constitutional: Appearance: She is well-developed. HENT: Head: Normocephalic and atraumatic. Right Ear: Tympanic membrane, ear canal and external ear normal. Left Ear: Tympanic membrane, ear canal and external ear normal. Eyes: Conjunctiva/sclera: Conjunctivae normal. Pupils: Pupils are equal, round, and reactive to light. Cardiovascular: Rate and Rhythm: Normal rate and regular rhythm. Heart sounds: Normal heart sounds. Pulmonary: Effort: Pulmonary effort is normal. Breath sounds: Normal breath sounds. Musculoskeletal: Cervical back: Normal range of motion. Skin: General: Skin is warm and dry. Neurological: Mental Status: She is alert and oriented to person, place, and time. Psychiatric: Mood and Affect: Mood normal. ASSESSMENT/PLAN: Diagnoses and all orders for this visit: Palpitations - ECG 12 lead; Future - Holter monitor 24-48 hour; Future - Echo complete W/O contrast; Future - Thyroid profile includes TSH FT4; Future Shortness of breath - ECG 12 lead; Future - Holter monitor 24-48 hour; Future - Echo complete W/O contrast; Future Anxiety PCOS (polycystic ovarian syndrome) - Ambulatory referral to Endocrinology ([facility]); Future Other depression Chest pain, unspecified type - Echo complete W/O contrast; Future Hyperinsulinism - Ambulatory referral to Endocrinology ([facility]); Future Follow-up: Will get routine lab work done that was ordered, will add thyroid Echo and holter Will call with results Referral to endocrinology Follow up with routine appointment or as needed Patient noted to have elevated BMI and the following intervention(s) were applied: encouragement to exercise. ABHILASH Horvath 02/23/24 1340 documented in this encounter [employer] 12-15-2023 History of Presen t illness Narrative Images from the original note were not included. [address] [facility] [id number] Subjective: Felipa Elliott is a 28 y.o. female who presents for an Annual Wellness exam. Patient presents to the office for routine wellness. Has history of PCOS and hyperinsulinism. She is taking Trulicity and having diarrhea and vomiting. Will decrease dosage back to 3mg due to symptoms with 4.5mg. She is also having a lot of mood changes. She feels like she is easy to get upset and is worried it is more because her mother has a history of bipolar disorder. Will place referral for psychiatry and once she goes back to 3mg and if nausea decreasing can start Wellbutrin. Has been on zoloft and celexa in the past. Annual Exam Associated symptoms include nausea and vomiting. Pertinent negatives include no abdominal pain, arthralgias, chest pain, congestion, coughing, fatigue, fever, joint swelling, neck pain, numbness, rash, sore throat or weakness. The following portions of the patient's history were reviewed and updated as appropriate: medications, allergies, past medical history, past surgical history, social history, family history and immunization history Vitals: Vitals: 12/15/23 1440 BP: 124/76 Pulse: 82 Resp: 16 Weight: 116.1 kg (256 lb) History: Patient Active Problem List Diagnosis Date Noted History of pre-eclampsia in prior , currently 09/07/2019 Abnormal biochemical finding on screening of mother 08/30/2019 complicated by cerebral ventriculomegaly 08/07/2019 Pseudotumor cerebri syndrome 12/28/2016 Family history of cleft palate with cleft lip 12/28/2016 Rh negative state in antepartum period 12/28/2016 Past Medical History: Diagnosis Date Abnormal Pap smear of cervix 04/2016 ASCUS Anesthesia complication Anxiety Chronic migraine Cleft lip and palate, , affecting care of mother, 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/25/2014 Depression Hydrocephalus ([facility]) Hypertension WITH FIRST Miscarriage Neurologic disorder Obesity Pseudotumor cerebri Rh incompatibility UTI (urinary tract infection) Past Surgical History: Procedure Laterality Date CHOLECYSTECTOMY D&C FIRST TRIMESTER / TX INCOMPLETE / MISSED / SEPTIC / INDUCED 2018 SALPINGECTOMY 07/2022 WISDOM TOOTH EXTRACTION Family History Problem Relation Age of Onset Diabetes Father Cancer Father throat Heart attack Father Heart disease Father 48 from [place] Autism Brother Mental illness Brother Cleft lip Daughter Cleft palate Daughter Social History Tobacco Use Smoking status: Never Smokeless tobacco: Never Substance Use Topics Alcohol use: No Allergies: No Known Allergies Immunization History Administered Date(s) Administered COVID-19, mRNA, LNP-S, PF, 100mcg/0.5mL Dose 12/31/2020, 02/05/2021 Review of Systems: Review of Systems Constitutional: Negative for fatigue, fever and unexpected weight change. HENT: Negative for congestion, ear pain, sinus pressure, sinus pain and sore throat. Eyes: Negative for photophobia, pain, discharge and visual disturbance. Respiratory: Negative for cough and shortness of breath. Cardiovascular: Negative for chest pain, palpitations and leg swelling. Gastrointestinal: Positive for diarrhea, nausea and vomiting. Negative for abdominal pain. Endocrine: Negative for polydipsia, polyphagia and polyuria. Genitourinary: Negative for difficulty urinating, frequency, hematuria and urgency. Musculoskeletal: Negative for arthralgias, gait problem, joint swelling and neck pain. Skin: Negative for pallor and rash. Neurological: Negative for dizziness, weakness, light-headedness and numbness. Psychiatric/Behavioral: Negative for sleep disturbance. The patient is nervous/anxious. Objective: BP 124/76 Pulse 82 Resp 16 Wt 116.1 kg (256 lb) BMI 43.92 kg/m Physical Exam Constitutional: Appearance: She is well-developed. HENT: Head: Normocephalic and atraumatic. Right Ear: External ear normal. Left Ear: External ear normal. Eyes: Conjunctiva/sclera: Conjunctivae normal. Pupils: Pupils are equal, round, and reactive to light. Cardiovascular: Rate and Rhythm: Normal rate and regular rhythm. Heart sounds: Normal heart sounds. Pulmonary: Effort: Pulmonary effort is normal. Breath sounds: Normal breath sounds. Abdominal: General: Bowel sounds are normal. Palpations: Abdomen is soft. Musculoskeletal: General: Normal range of motion. Cervical back: Normal range of motion. Skin: General: Skin is warm and dry. Neurological: Mental Status: She is alert and oriented to person, place, and time. Psychiatric: Mood and Affect: Mood normal. Assessment/Plan: Felipa was seen today for annual exam. Diagnoses and all orders for this visit: Wellness examination - CBC auto differential; Future - Comprehensive metabolic panel; Future - Lipid profile; Future Hyperinsulinism - Insulin; Future PCOS (polycystic ovarian syndrome) - Insulin; Future Anxiety Pseudotumor cerebri syndrome Other depression Other orders - dulaglutide (TRULICITY) 3 mg/0.5 mL pen injector; Inject 3 mg under the skin every 7 days. Plan Outpatient Medications Prior to Visit Medication Sig Dispense Refill acetaminophen-codeine (TYLENOL WITH CODEINE) 120-12 mg/5 mL solution albuterol (PROVENTIL HFA;VENTOLIN HFA) 90 mcg/actuation inhaler escitalopram (LEXAPRO) 20 mg tablet Take 1 tablet (20 mg total) by mouth in the morning. 90 tablet 1 nystatin (MYCOSTATIN) cream Apply 1 Application topically in the morning and 1 Application before bedtime. 30 g 0 dulaglutide (TRULICITY) 4.5 mg/0.5 mL pen injector Inject 4.5 mg under the skin every 7 days. 2 mL 2 No facility-administered medications prior to visit. Follow Up: Cbc, cmp, lipid profile, insulin Will call with results Decrease Trulicity to 3mg Did talk about adding Wellbutrin Referral to psychiatry Patient noted to have elevated BMI and the following intervention(s) were applied: encouragement to exercise. ABHILASH Horvath 12/15/23 1503 documented in this encounter [facility] 12-09-2023 Miscellaneous Notes Refill to [employer] documented in this encounter [facility] 12-09-2023 Telephone encounter Note Refill to [employer] [facility] 07-16-2022 Note OPERATIVE NOTE OPERATION DATE: 07/16/2022 PROCEDURE: Bilateral laparoscopic salpingectomy. PREOPERATIVE DIAGNOSIS: Multiparity, desires permanent sterilization. POSTOPERATIVE DIAGNOSIS: Multiparity, desires permanent sterilization. ANESTHESIA: General. SURGEON: Margarito Stearns D.O. WIG MAKER: MAGGIE Chacon URINE OUTPUT: Yellow and clear. BLOOD LOSS: 5 mL. FINDINGS: Normal appearing ovaries, uterus and tubes. No evidence of endometriosis. SPECIMEN: Tubes. PROCEDURE: The patient was taken back to the Operating Room where she was given general anesthesia without difficulty. She was then prepped and draped in the normal sterile fashion after being placed in a dorsal lithotomy position. A wet sponge stick was placed into the patient's vagina. Attention was then turned to the patient's abdomen, where a scalpel was used to make a small infraumbilical incision. The S retractors were then used to dissect the underlying layers until the fascia could be seen. The fascia was then grasped with Brielle clamps and tented up. A knife was then used to make a small incision to the fascia. The muscle was identified, at that time two sutures of #0 Vicryl on a GI needle was then used and placed through the fascia. The peritoneum was then identified and entered bluntly. The 10-4 Kristina was then placed into the patient's abdomen. This was confirmed with direct visualization of the bowel, using the laparoscope. The patient's abdomen was then insufflated using approximately 4 liters of CO2 gas. Survey of the patient's abdomen demonstrated ovaries were normal in appearance as well as both tubes and uterus. A second and third rt and lt lateral ports which were 7-8 and 5 mm in size, was then placed after the skin incision was made under direct visualization The patient's tube on the patient's right side was identified and tented up using a grasper, the LigaSure apparatus was then used to come across the mesosalpinx from the fimbriated end to the insertion site at the uterus, the tube was then amputated and removed in its entirety. This was done on the contralateral side. The tubes were the removed from the patient's abdomen. Excellent hemostasis was noted. The lateral ports were then moved under direct visualization with excellent hemostasis. All instruments were removed from the patient's abdomen. The fascia was closed using the #0 Vicryl on GI needle. The skin was closed using 4-0 Vicryl subcuticularly. All instruments were removed from the patient's vagina as well. The patient was taken out of the dorsal lithotomy position and placed in the supine position and taken to recovery in stable condition. Sponge, lap and needle counts were correct x2. [facility] 12-13-2021 Evaluation note Encounter Date Diagnosis Assessment Notes Dec, Contact with and (suspected) exposure to other viral communicable diseases (ICD-10 - Z20.828) Dec, Bronchitis (ICD-10 - J40) Drink plenty fluids, get plenty of rest. Use the albuterol treatments as prescribed as needed for cough or shortness of breath. Take Tylenol as needed for aches pains or fevers. Follow-up with your pharmaceutical specialty representative as scheduled. Dec, Other Additional time spent conducting pre-visit phone call, screening for symptoms, instructions on social distancing, application and removal of PPE, and cleaning of examination room, equipment and supplies was preformed. Patient education given for testing methodology and results. Patient care instructions given in writting by [employer] document. [employer] Other 01-04-2022 Evaluation note* Encounter Date Diagnosis Assessment Notes Treatment Notes Treatment Clinical Notes Nov, Contact with and (suspected) exposure to other viral communicable diseases (ICD-10 - Z20.828) Nov, Acute sinusitis, recurrence not specified, unspecified location (ICD-10 - J01.90) Drink plenty fluids, get plenty of rest. Use the Flonase inhaler as prescribed starting today. Continue take Mucinex as needed for congestion. Follow-up with your METER READER CHIEF or family physician if no improvement in 2 to 3 days. Nov, Other Additional time spent conducting pre-visit phone call, screening for symptoms, instructions on social distancing, application and removal of PPE, and cleaning of examination room, equipment and supplies was preformed. Patient education given for testing methodology and results. Patient care instructions given in writting by [employer] document. Additional time spent conducting pre-visit phone call, screening for symptoms, instructions on social distancing, application and removal of PPE, and cleaning of examination room, equipment and supplies was preformed. Patient education given for testing methodology and results. Patient care instructions given in writting by [employer] document. [employer] Other 10-17-2021 Evaluation note* Encounter Date Diagnosis Assessment Notes Treatment Notes Treatment Clinical Notes Aug, Contact with and (suspected) exposure to other viral communicable diseases (ICD-10 - Z20.828) Aug, Strep pharyngitis (ICD-10 - J02.0) Aug, Sore throat (ICD-10 - J02.9) 17 Aug, 2021 Other Additional time spent conducting pre-visit phone call, screening for symptoms, instructions on social distancing, application and removal of PPE, and cleaning of examination room, equipment and supplies was preformed. Patient education given for testing methodology and results. Patient care instructions given in writting by [facility] document. [employer] Other Chief complaint Narrative - Reported* FELIPA ELLIOTT is being seen for a cardiovascular evaluation. * FELIPA ELLIOTT is being seen for palpitations. -[facility] DO Work Phone: Evaluation noteNo InformationNoal[facility]. [facility] Admittor Other Evaluation noteNoGreenbureau Other Evaluation note* Diagnosis Palpitations- Primary Shortness of breath Anxiety Anxiety state, unspecified PCOS (polycystic ovarian syndrome) Polycystic ovaries Other depression Chest pain, unspecified type Hyperinsulinism Other specified hypoglycemia documented in this encounter [email or web address]* Diagnosis Hyperinsulinism Other specified hypoglycemia PCOS (polycystic ovarian syndrome) Polycystic ovaries documented in this encounter [employer] SystemEvaluation note* Diagnosis Wellness examination- Primary Hyperinsulinism Other specified hypoglycemia PCOS (polycystic ovarian syndrome) Polycystic ovaries Anxiety Anxiety state, unspecified Pseudotumor cerebri syndrome Benign intracranial hypertension Other depression [facility] this encounter [facility] SystemHistory general Narrative - Reported* Type Description Date Medical History chronic depression Medical History heart palpatations Medical History psudo tumor Surgical History D&C Surgical History cholecystectomy [employer] Other Hisjpqc general Narrative - Reported* Type Description Date Medical History chronic depression Medical History heart palpatations Medical History pseudotumor Cerebi Medical History heart murmur as baby Medical History anxiety Surgical History D&C Surgical History cholecystectomy [employer] Other History general Narrative - ReportedNoGreenbureau Other Instructions* Attachments The following attachments cannot be sent through Care Everywhere. * Depression (Mexican) documented in this encounterProHidden Radio SystemInstructionsNot on file documented in this encounterProHidden Radio SystemInstructionsNot on file documented in this encounterProProm[facility] SystemInstructions* Attachments The following attachments cannot be sent through Care Everywhere. * Anxiety Discharge Instructions, Adult (Mexican) documented in this encounterProProm[facility] SystemInstructionsNot on file documented in this encounterProPromedica [facility] SystemInstructionsNot on file documented in this encounterFlower Hospital SystemReason for referral (narrative)* Consultation (Routine) - Authorized Specialty Diagnoses / Procedures Referred By Contac t Referred To Contact Endocrinology Diagnoses PCOS (polycystic ovarian syndrome) Hyperinsulinism Nirav Bryant APRN-CNP [address] [place] [address] Aditi Ordaz MD [address] [place] [address] Referral ID Status Reason Start Date Expiration Date Visits Requested Visits Authorized [id number] Authorized Specialty Services Required 02/23/2024 02/22/2025 1 1 * Cardiology (Routine) - CLINICAL DOCUMENTATION REQUESTED 1ST REQ Specialty Diagnoses / Procedures Referred By Contac t Referred To Contact Diagnoses Palpitations Shortness of breath Chest pain, unspecified type Procedures Echo complete W/O contrast Nirav Bryant APRN-CNP [address] [place] [address] Referral ID Status Reason Start Date Expiration Date Visits Requested Visits Authorized [id number] CLINICAL DOCUMENTATION REQUESTED 1ST REQ 02/23/2024 02/22/2025 1 1 * Cardiology (Routine) - Pending Review Specialty Diagnoses / Procedures Referred By Contac t Referred To Contact Diagnoses Palpitations Shortness of breath Procedures Holter monitor 24-48 hour Nirav Bryant APRN-CNP [address] [place] [address] Referral ID Status Reason Start Date Expiration Date V isits Requested Visits Authorized [id number] Pending Review 02/23/2024 02/22/2025 1 1 * Cardiology (Routine) - Pending Review Specialty Diagnoses / Procedures Referred By Evangelina conley Referred To Contact Diagnoses Palpitations Shortness of breath Procedures ECG 12 lead Nirav Bryant APRN-CNP [address] [place] [address] Referral ID Status Reason Start Date Expiration Date V isits Requested Visits Authorized [id number] Pending Review 02/23/2024 02/22/2025 1 1 [facility] Consultation (Routine) - Pending Review Specialty Diagnoses / Procedures Referred By Evangelina conley Referred To Contact Behavioral Health Diagnoses Anxiety Other depression Nirav Bryant APRN-CNP [address] [place] [address] Isa Reynoso [facility] [address] [place] [address] Referral ID Status Reason Start Date Expiration Date Visits Requested Visits Authorized [id number] Pending Review Specialty Services Required 12/15/2023 12/14/2024 1 1 [facility] Family History No Family History Records FoundUnknown Family Member Name Dates Details Bipolar depression: Mother Status:Active Family history of acute myoc ardial infarction: Father(V17.3, Z82.49) Status:Active Family history of diabetes m ellitus: Father(V18.0, Z83.3) Status:Active Family history of malignant neoplasm of esophagus: Father(V16.0, Z80.0) Status:Active Family history of depression : Brother(V17.0, Z81.8) Status:Active Summary Purpose Advance Directives No Advanced Directives Records FoundNo Advanced Directives Records FoundNo Advanced Directives Records FoundNo Advanced Directives Records FoundNo Advanced Directives Records FoundNo Advanced Directives Records FoundNo Advanced Directives Records FoundNo Advanced Directives Records FoundNo Advanced Directives Records Found Additional Source Comments INFORMATION SOURCE (unrecogn ized section and content) DATE CREATED AUTHOR 09/22/2021 [employer] DATE CREATED AUTHOR AUTHOR'S ORGANIZ ATION 02/24/2022 [facility] DATE CREATED AUTHOR AUTHOR'S ORGANIZ ATION 03/07/2023 [facility] DATE CREATED AUTHOR AUTHOR'S ORGANIZ ATION 02/25/2024 [facility] DATE CREATED AUTHOR AUTHOR'S ORGANIZ ATION 07/31/2024 [facility] DATE CREATED AUTHOR AUTHOR'S ORGANIZ ATION 08/02/2024 [facility] DATE CREATED AUTHOR AUTHOR'S ORGANIZ ATION 02/10/2025 [facility] REASON FOR VISIT (unrecogniz ed section and content) Reason Onset Date Comments Med Refill 12/09/2023 Reason Comments Annual Exam Reason Onset Date Comments Appointment due 01/11/2025 Care Teams (unrecognized sec tion and content) Photo Machine Operator Relationship Specialty Start Date End Date Nirav Bryant APRN-CNP [address] [place] [address] PCP - General Family Medicine 11/30/22 Photo Machine Operator Relationship Specialty Start Date End Date Nirav Bryant APRN-CNP [address] [place] [address] PCP - General Family Medicine 11/30/22 Photo Machine Operator Relationship Specialty Start Date End Date Nirav Bryant APRN-CNP [address] [place] [address] PCP - General Family Medicine 11/30/22 Photo Machine Operator Relationship Specialty Start Date End Date Nirav Bryant APRN-CNP [address] [place] [address] PCP - General Family Medicine 11/30/22 Photo Machine Operator Relationship Specialty Start Date End Date TatianacathyNirav APRN-ARACELIS [address] [place] [address] PCP - General Family Medicine 11/30/22 Photo Machine Operator Relationship Specialty Start Date End Date Nirav Bryant APRN-ARACELIS [address] [place] [address] PCP - General Family Medicine 11/30/22 FOR RECORDS PERTAINING TO PATIENTS WHO ARE OR HAVE BEEN ENROLLED IN A CHEMICAL DEPENDENCY/SUBSTANCEABUSE PROGRAM, SOME INFORMATION MAY BE OMITTED. This clinical summary was aggregated from multiple sources. Caution should be exercised in using it in the provision of clinical care. This summary normalizes information from multiple sources, and as a consequence, information in this document may materially change the coding, format and clinical context of patient data. In addition, data may be omitted in some cases. CLINICAL DECISIONS SHOULD BE BASED ON THE PRIMARY CLINICAL RECORDS. [employer] provides no warranty or guarantee of the accuracy or completeness of information in this document.
--- NOTE | 2025-04-23 07:24 | XR_ITS ---
[address] [address] Patient Name: ABEL ELIZONDO MRN: [id number] date: 1995 Sex: F Assigned Patient Location: ER Current Patient Location: Accession/Order Number: [id number] Exam Date: 04/23/2025 07:57 Report Date: 04/23/2025 07:58 At the request of: EDE VALENZUELA MD Procedure: XR foot LT min 3V 3 views left foot plain film COMPARISON:None HISTORY: Injury involving the top of the left foot ACUTE FINDINGS: None DEGENERATIVE CHANGE: Unremarkable SOFT TISSUE FINDINGS: No focal dorsal soft tissue prominence related to trauma. No acute displaced fracture. JOINT EFFUSION: None POSTOP CHANGES: None BONE MINERALIZATION: Adequate XR/XR foot LT min 3V IMPRESSION: No acute displaced fracture Impression dictated by: Daniel Castro M.D. 04/23/2025 7:58 AM Dictation Location: [place] [address] Electronically authenticated by: [id number] Y Date: 04/23/2025 07:58
--- NOTE | 2025-04-23 07:29 | ED.GENADUL1 ---
HPI HPI - General Adult General Chief complaint: Extremity Injury, Lower Stated complaint: LOWER EXTREMITY INJURY Time Seen by Provider: 04/23/25 07:14 Source: patient Mode of arrival: Wheelchair History of Present Illness HPI narrative: 29-year-old female presents for left foot pain. She dropped a heavy item on her foot just before coming into the emergency department. No other injury was sustained. The pain is moderate and worse when she walks on it. Related Data Home Medications ?Medication ?Instructions ?Recorded ?Confirmed escitalopram oxalate 20 mg tablet 20 mg PO DAILY 05/05/23 04/23/25 (Lexapro) Previous Rx's ?Medication ?Instructions ?Recorded ibuprofen 800 mg tablet 800 mg PO Q8H PRN pain #20 tabs 04/23/25 Allergies Allergy/AdvReac Type Severity Reaction Status Date / Time No Known Drug Allergies Allergy Verified 04/23/25 07:14 Opioid HPI Opioid Management Most Recent Opioid Data: Last Pain Scale 9 Today, 07:23 Review of Systems ROS Narrative A ten point review of systems is negative except as noted above. PFSH PFSH Social History Little interest or pleasure in doing things: not at all Feeling down, depressed, or hopeless: not at all Exam Narrative Exam Narrative: Nurses note and vital signs reviewed and patient is not hypoxic. General: The patient appears in no apparent distress. Patient has her left foot elevated. Skin: Warm, dry, no pallor noted. There is no rash noted. Head: Normocephalic, atraumatic Eye: Normal conjunctiva, no drainage Ears, Nose, Mouth, and Throat: oral mucosa is moist. Nares patent. Cardiovascular: Regular Rate and Rhythm Respiratory: Patient is in no distress, no accessory muscle use Back: non-tender GI: Soft and nontender Musculoskeletal: The left foot is examined. She has bruising and swelling on the dorsum of her foot in the distal lateral region skin intact. Neurological: A&O, normal speech Psychiatric: Cooperative Constitutional Vital Signs, click to edit/add: Last Vital Signs Temp 98.3 F 04/23/25 07:14 Pulse 95 H 04/23/25 07:14 Resp 16 04/23/25 07:14 BP 156/88 H 04/23/25 07:14 Pulse Ox 97 04/23/25 07:14 O2 Del Method Room Air 04/23/25 07:14 Course Vital Signs Vital signs: Vital Signs Temperature 98.3 F 04/23/25 07:14 Pulse Rate 95 H 04/23/25 07:14 Respiratory Rate 16 04/23/25 07:14 Blood Pressure 156/88 H 04/23/25 07:14 Pulse Oximetry 97 04/23/25 07:14 Oxygen Delivery Method Room Air 04/23/25 07:14 Temperature 98.3 F 04/23/25 07:14 Pulse Rate 95 H 04/23/25 07:14 Respiratory Rate 16 04/23/25 07:14 Blood Pressure 156/88 H 04/23/25 07:14 Pulse Oximetry 97 04/23/25 07:14 Oxygen Delivery Method Room Air 04/23/25 07:14 Medical Decision Making MDM Narrative Medical decision making narrative: X-ray of her foot on my interpretation shows no fractures. She has a hematoma and was recommended rest and ice and elevation and she was prescribed ibuprofen. Postop shoe applied, application checked by me and found to be appropriate, she is neurovascularly intact. Treatment diagnosis and follow-up were discussed with the patient. Differential Diagnosis Differential Diagnosis: Contusion, fracture Imaging Data Left foot x-ray: My impression: No acute findings Discharge Plan Discharge Chief Complaint: Extremity Injury, Lower Clinical Impression: Contusion of foot, left Patient Disposition: Home, Self-Care Time of Disposition Decision: 07:43 Condition: Good Mode of Transportation: Private Vehicle Prescriptions / Home Meds: New ibuprofen 800 mg tablet 800 mg PO Q8H PRN (Reason: pain) Qty: 20 0RF No Action escitalopram oxalate [Lexapro] 20 mg tablet 20 mg PO DAILY Print Language: Sami Instructions: Foot Contusion (ED) Referrals: Xena Bryant NP [Primary Care Provider] - 1 week
== END 2025-04-23 07:57 | disposition home or self-care (01) ==
PROVIDERS: Emergency Provider Emergency Medicine; PCP Nurse Practitioner Family
DX: S90.32XA Contusion of left foot, initial encounter (principal); M79.672 Pain in left foot; W20.8XXA Other cause of strike by thrown, projected or falling object, initial encounter
CPT/HCPCS: 73630; 99283